=== PATIENT | male | born 1945 | race Caucasian/White ===

== ENCOUNTER 2017-07-22 16:25 | Outpatient (CLI) | payer MEDICARE, BC | END 2017-07-22 16:26 | disposition home or self-care (01) | LOC: BICRAD 16:25 | PROVIDERS: ATTEND Internal Medicine | DX: R05 Cough (principal); M48.54XS Collapsed vertebra, not elsewhere classified, thoracic region, sequela of fracture; J44.9 Chronic obstructive pulmonary disease, unspecified | CPT/HCPCS: 71020; 72070 ==

== ENCOUNTER 2018-01-09 07:49 | Emergency (ER) | payer MEDICARE, BC ==
[2018-01-09] MEDS ORDERED: HYDROcodone/Acetaminophen 5/325 mg Tablet ONE (08:30)
== END 2018-01-09 08:31 | disposition home or self-care (01) ==
LOC: ERS 07:49
DX: B02.9 Zoster without complications (principal); F43.10 Post-traumatic stress disorder, unspecified; F17.210 Nicotine dependence, cigarettes, uncomplicated; Z79.899 Other long term (current) drug therapy
CPT/HCPCS: 93005

== ENCOUNTER 2018-01-21 15:15 | Outpatient (CLI) | payer MEDICARE, BC | END 2018-01-21 15:16 | disposition home or self-care (01) | LOC: BICRAD 15:15 | PROVIDERS: ATTEND Internal Medicine | DX: M54.2 Cervicalgia (principal) | CPT/HCPCS: 71046; 72040 ==

== ENCOUNTER 2018-01-22 15:35 | Outpatient (CLI) | payer MEDICARE, BC ==
[2018-01-22] MEDS ORDERED: Gadobenate Dimeglumine 529 MG/1 ML (20ML VIAL) ONE (16:37)
--- NOTE | 2018-01-22 17:19 | MRI ---
MRI CERVICAL SPINE WITH AND WITHOUT GADOLINIUM CONTRAST 01/22/18 HISTORY: Neck pain. Osteoporosis. Compression fracture. FINDINGS: There is desiccation of all the intervertebral discs. Abnormal signal within the C5 vertebral body in cludes loss of T1 signal and increased T2 signal with enhancement. The abnormality extends into the r ight pedicle and lamina. No significant loss of height. Signal abnormality of the inferior aspect of the T3 vertebrae includes predominantly decreased T1 and T2 signal inferiorly with rim of increased T2 signal and enhancement. Minimal loss of height. C2-3: Central canal and neural foramina are patent. C3-4: Disc space narrowing. Central canal is patent. Severe right and mild left foraminal stenoses. C4-5: Disc space narrowing. Posterior osteophyte/disc complex with circumferential degenerative braswell es and mild central canal stenosis. Severe bilateral foraminal stenoses. C5-6: There is some expansion of the abdomen signal involving the vertebral body and right posterior elements at C5, compromising the right neural foramen and right side of the central canal. Circumfere ntial degenerative changes are also present with severe stenosis of the central canal and left neural foramen. C6-7: Posterior osteophyte/disc complex. Circumferential degenerative changes with mild to moderate c entral canal stenosis. There is moderate right and severe left foraminal stenoses. C7-T1: Mild osteophytosis. Central canal and neural foramina are patent. IMPRESSION: 1. Osseous metastatic disease is of primary concern given the abnormality of the C5 vertebra and to a lesser extent the T3 vertebra. This results in some compromise of the central canal and right n eural foramen. For further evaluation, please consider radionuclide bone scan to evaluate for extent of suspected metastatic disease. CT of the torso could also be used to evaluate for a potential prima ry neoplasm. 2. Degenerative changes of the cervical spine are also present, with central canal and foraminal stenoses as detailed above. Code T POS: [facility]
== END 2018-01-22 15:36 | disposition home or self-care (01) ==
LOC: MRI 15:35
PROVIDERS: ATTEND Internal Medicine
DX: C79.51 Secondary malignant neoplasm of bone (principal); M47.896 Other spondylosis, lumbar region; M48.02 Spinal stenosis, cervical region; M99.81 Other biomechanical lesions of cervical region
CPT/HCPCS: 72156; A9579

== ENCOUNTER 2018-01-28 07:43 | Outpatient (CLI) | payer MEDICARE, BC ==
--- NOTE | 2018-01-28 10:29 | CT ---
CT CHEST WITH IV CONTRAST: HISTORY: Bone metastases. FINDINGS: Lungs are severely hyperinflated with scattered interstitial thickening and scarring and mild bibasil ar atelectasis. Prominent bullae are present peripherally. At the medial aspect of the left upper l obe abutting the anterior mediastinal fat, a wedge-shaped parenchymal opacity is 2.3 x 1.7 cm diamete rs on the axial images. No pleural fluid or mediastinal adenopathy. Calcifications within the arter ial structures including the coronary arteries. At the posterior aspect of the left 10th rib, a slightly expansile mixed-density lesion is 1.6 cm gre atest diameter. Pathologic fracture is suspected along the lateral margin of the lesion. There are degenerative changes of the thoracic spine with vertebroplasty seen at the T8 level. No ve rtebral body lytic lesions are apparent, with particular attenuation paid to the T3 level where there was abnormality on recent MRI. Within the partially visualized upper abdomen, the low-density lesio n within the spleen is nonspecific, most commonly representing a hemangioma. IMPRESSION: 1. Left posterior 10th rib lesion is somewhat expansile and favored to represent metastatic disease. Pathologic fracture is suspected along the lateral margin of the mass. 2. The parenchymal lung lesion at the medial aspect of the left upper lobe could represent a metasta tic focus or nonaggressive process such as atelectasis or resolving infract. If neoplasm is not foun d elsewhere, radionuclide PET scan could be used to evaluate for hypermetabolic activity. 3. Chronic obstructive pulmonary disease. 4. Atherosclerosis. For further diagnosis, radionuclide bone scan is pending to evaluate for widespread osseous metastase s. Hopefully, a lesion below the level of the chest will be found for safe percutaneous biopsy. Of the abnormalities currently visible, the left rib mass would possibly be accessible by CT guidance fo r tissue sampling. POS: [facility]
[2018-01-28] MEDS ORDERED: Iopamidol 370 76% 100 ML VIAL ONE (11:21)
--- NOTE | 2018-01-28 14:26 | NM ---
WHOLE BODY BONE SCAN: DATE: 01/28/18. HISTORY: Hypercalcemia, malignant neoplasm. TECHNIQUE: Following the intravenous administration of 30 mCi Technetium 99m labeled MDP, anterior and posterior whole body imaging is obtained. In addition, lateral imaging of the cervical spine is obtained. FINDINGS: There is an abnormal focus of radiotracer activity within the mid/lower cervical spine concerning for a metastatic lesion. There is also a focus of abnormal activity in the upper thoracic spine, either T2 or T3, which is suspicious for metastatic disease as well. In the T9 region, there is an additio nal lesion noted. There appear to be 2 lesions within the spin at the lumbosacral junction, suspicious for lesions with in the L5 vertebral body. Thee is a lesion within the posterior aspect of the left 11th rib medially , and there is a lesion within the anterior aspect of the right 4th rib anteriorly. There is radiotr acer activity in the region of the temporomandibular joint on the left. This could represent an osse ous metastatic lesion as well. There is physiologic activity within the kidneys and urinary bladder. IMPRESSION: Multiple foci of increased activity identified within the osseous structures suspicious for extensive osseous metastatic disease. Cross-sectional imaging of the spine would best assess findings concern ing for multiple spinal lesions. POS: [facility]
== END 2018-01-28 07:44 | disposition home or self-care (01) ==
LOC: NM 07:43
PROVIDERS: ATTEND Internal Medicine
DX: C34.90 Malignant neoplasm of unspecified part of unspecified bronchus or lung (principal); F17.200 Nicotine dependence, unspecified, uncomplicated; E83.52 Hypercalcemia; M89.9 Disorder of bone, unspecified; J44.9 Chronic obstructive pulmonary disease, unspecified; I70.8 Atherosclerosis of other arteries
CPT/HCPCS: 71260; 78306; 82565; A9503

== ENCOUNTER → 2018-02-04 | Day surgery (SDC) | payer MEDICARE, BC ==
[~2018-02-04] MED LIST: Prevnar 13-Val Conj/PF 0.5 ML SYRINGE IM ONE; Sodium Bicarbonate 2.5 MEQ/5 ML VIAL ONE
[2018-02-04 08:24] LABS: PTT 32.2 SEC (22.9-36.1)
[2018-02-04 08:28] LABS: Prothrombin Time 12.9 SEC (12.0-14.7)
[2018-02-04 09:30] VITALS: BP 154/92; TEMP 97.6; BMI 26.6
--- NOTE | 2018-02-04 11:20 | CT ---
CT ABDOMEN AND PELVIS WITH IV CONTRAST: Date: 02-04-18 History: Patient with a left posterior 10th rib lesion and multiple foci of increased activity seen i n the osseous structures on bone scan suggesting metastatic disease. CT abdomen and pelvis was reques elaine. FINDINGS: There is volume loss present at each lung base. There is an approximately 2.1 cm hypodense lesion seen in the superior pole of the spleen also seen o n the CT thorax of 01-28-18, which is again nonspecific. This could represent a small hemangioma or sp lenic cyst. However, a solitary metastatic lesion in the spleen is thought less likely. There are subcentimeter too small to characterize hypodense lesions within the left kidney with a lar emeli 3.1 cm hypodense lesion at the junction of the midportion and superior pole left kidney demonstra ting fluid attenuation compatible with a cyst. A single small subcentimeter too small to characterize hypodense lesion is seen in the right kidney. The liver has somewhat lobulated margins which can be seen with cirrhosis, although this is probably normal for the patient. The pancreas, bilateral adrenal glands, opacified small bowel, and urinary bladder demonstrate a norm al CT appearance. There is colonic diverticulosis. There is no evidence of lymphadenopathy, free fluid, or fluid collection in the abdomen or pelvis. Vascular calcifications are seen in the abdominal and iliac arteries. The previously described expansile lesion involving the medial left 10th rib is again seen. There is a lucency seen within the inferior endplate of the L5 vertebral body which demonstrates andrea acteristics which are most suggestive of a prominent Schmorl's node. There are prominent facet degene rative changes seen bilaterally at the L5-S1 level, likely corresponding to areas of uptake seen on r ecent bone scan on 01-28-18. No additional lytic or sclerotic osseous lesions are appreciated. IMPRESSION: 1. Expansile lytic lesion involving the posterior medial left 10th rib. This rib also demonstrates in creased uptake on recent bone scan and is likely related to a metastatic lesion. 2. Activity within the lower lumbar spine on bone scan is likely attributable to degenerative changes at the lumbosacral junction. 3. Nonspecific hypodense lesion again seen in the spleen. 4. Left renal cyst with subcentimeter too small to characterize hypodense lesions in each kidney. 5. Small duodenal diverticulum. 6. No evidence of lymphadenopathy within the abdomen. 7. Colonic diverticulosis. 8. Prominent vascular calcifications. 9. Lobulated contour of the liver. While this can be seen with cirrhosis, the appearance on this exam ination is likely developmental in origin but correlation with liver function tests is suggested. POS: [facility]
--- NOTE | 2018-02-04 12:52 | CT ---
CT GUIDED PERCUTANEOUS BIOPSY OF A LEFT 10TH RIB LESION: DATE: 02/04/18. HISTORY: Lytic lesion within the medial aspect posterior left 10th rib with abnormal uptake on recent bone sca n. The patient also has a left upper lobe parenchymal lung lesion. Biopsy was requested. TECHNIQUE: The procedure including the risks and complications were explained to the patient and informed consen t was obtained. The patient was placed in the prone position on the CT scan table. Axial noncontras elaine CT images were obtained through the level of the 10th rib lesion with grid localizer in place. A n area was marked and then meticulously prepped and draped in the usual sterile fashion. The skin and subcutaneous tissues were infiltrated with buffered 1% Lidocaine for local anesthesia. A small skin incision was made. A 17-gauge guide needle was advanced followed by axial noncontrasted CT images. This was repeated until the needle was placed just within the peripheral aspect of the l ytic expansile lesion in the left 10th rib. A total of two 18-gauge core needle biopsy specimens wer e obtained utilizing coaxial technique. Pathology was available for the evaluation of the specimen a nd no additional specimens were requested as adequate sampling was performed with two 18-gauge core n eedle biopsies. The inner stylette was replaced, and the needle was removed. Hemostasis was achieved with direct pre ssure. A dry sterile dressing was placed. The patient tolerated the procedure well and without immediate complication. The patient was transpo rted to the radiology nurse's holding area for further monitoring prior to discharge. IMPRESSION: Technically successful CT-guided percutaneous biopsy of the expansile lesion left 10th rib. Patholog y is currently pending. POS: [facility]
== END ==
LOC: CT 07:51
PROVIDERS: ATTEND Internal Medicine
PROC: 0PB13ZX Excision of 1 to 2 Ribs, Percutaneous Approach, Diagnostic (ICD-10-PCS; principal; 2018-02-04)
DX: C79.51 Secondary malignant neoplasm of bone (principal); C80.1 Malignant (primary) neoplasm, unspecified; J44.9 Chronic obstructive pulmonary disease, unspecified; M81.0 Age-related osteoporosis without current pathological fracture; E83.52 Hypercalcemia; F17.200 Nicotine dependence, unspecified, uncomplicated
CPT/HCPCS: 20225; 74177; 77002; 85610; 85730; 88305; 88329; 88341; 88342

== ENCOUNTER 2018-03-03 12:55 | Outpatient (CLI) | payer MEDICARE, BC ==
[~2018-03-03 12:55] MED LIST changes: +Iopamidol 370 76% 100 ML VIAL ONE; -Prevnar 13-Val Conj/PF 0.5 ML SYRINGE IM ONE; -Sodium Bicarbonate 2.5 MEQ/5 ML VIAL ONE
== END 2018-03-03 12:56 | disposition home or self-care (01) ==
LOC: BICCT 12:55
PROVIDERS: ATTEND Radiology Radiation Oncology
DX: C34.90 Malignant neoplasm of unspecified part of unspecified bronchus or lung (principal); C79.51 Secondary malignant neoplasm of bone; R91.8 Other nonspecific abnormal finding of lung field; M85.89 Other specified disorders of bone density and structure, multiple sites; I65.23 Occlusion and stenosis of bilateral carotid arteries
CPT/HCPCS: 70491; 82565

== ENCOUNTER 2018-03-09 14:05 | Outpatient (CLI) | payer MEDICARE, BC ==
[2018-03-09 15:39] LABS: #Basophils 0.1 thou/uL (0.0-0.2); #Eosinphils 0.2 thou/uL (0.0-0.7); #Lymphocytes 1.3 thou/uL (1.20-3.40); #Monocytes 0.9 thou/uL (0.11-0.59); #Neutrophils 7.8 thou/uL (1.40-6.50); %Basophils 0.6 % (0.0-1.0); %Eosinophils 2.4 % (0.0-10.0); %Lymphocytes 12.3 % (21.0-51.0); %Monocytes 8.9 % (0.0-10.0); %Neutrophils 75.8 % (42.0-75.0); Hemoglobin 16.2 g/dL (14.0-18.0); Mean Corpuscular Hemoglobin 34.8 pg (27.0-31.0); Mean Platelet Volume 8.5 fL (7.4-10.4); Platelet Count 144 thou/uL (130-400); RBC Distribution Width 13.7 % (11.5-14.5); Red Blood Cell (RBC) Count 4.65 mill/uL (4.70-6.10); White Blood Cell (WBC) Count 10.3 thou/uL (4.8-10.8)
[2018-03-09 16:01] LABS: Anion Gap 13 mmol/L (10-20); BUN (Urea Nitrogen) 17 mg/dL (8.4-25.7); Calc. Creatinine Clearance 0 mL/min (70-130); Calcium 9.5 mg/dL (7.8-10.44); Carbon Dioxide 25 mmol/L (23-31); Chloride 104 mmol/L (98-107); Estimated GFR-MDRD 71; Glucose 93 mg/dL (83-110); Potassium 5.6 mmol/L (3.5-5.1); Sodium 136 mmol/L (136-145)
== END 2018-03-09 14:06 | disposition home or self-care (01) ==
LOC: LABBT 14:05
PROVIDERS: ATTEND Surgery
DX: Z01.812 Encounter for preprocedural laboratory examination (principal); C34.90 Malignant neoplasm of unspecified part of unspecified bronchus or lung
CPT/HCPCS: 80048; 85025

== ENCOUNTER 2018-03-23 08:23 | Day surgery (SDC) | payer MEDICARE, BC ==
[2018-03-23] MEDS ORDERED: PROPOFOL 200 MG/20 ML VIAL ONE (10:11)
--- NOTE | 2018-03-23 13:20 | RAD ---
CHEST ONE VIEW: History: Mediport placement. FINDINGS: Cardiac silhouette magnified by projection. Pulmonary vasculature upper limits of normal. Mild reticu lar nodular interstitial prominence is present throughout each lung. Mediastinum is midline with aort ic calcification. Tip of a right internal jugular Mediport projects over the superior vena cava. No e vidence of pneumothorax. Oval lucency at the lateral margin of the inferior portion of the right scap ular body may be related to patient's known osseous metastatic disease. IMPRESSION: Right internal jugular Mediport is in good radiographic position. POS: [facility]
--- NOTE | 2018-03-24 08:26 | OP ---
DATE OF PROCEDURE: 03/23/2018 PREOPERATIVE DIAGNOSIS: Lung cancer. POSTOPERATIVE DIAGNOSIS: Lung cancer. PROCEDURE: Tunneled central line with subcutaneous port (MediPort, CT injectable). SURGEON: Dr. Aashish Amato ANESTHESIA: TIVA, local. ESTIMATED BLOOD LOSS: Minimal. COMPLICATIONS: None. SPECIMEN: None. FINDINGS: Tip of the catheter is at the atriocaval junction. TECHNIQUE: The patient was taken to the operating room and placed supine on the table. After genera l anesthetic was obtained, the bilateral neck and chest were shaved, prepped, and draped in a sterile fashion. Local anesthetic infiltrated over the right internal jugular vein. Intrajugular vein gayathri ulated using a 22-gauge finder needle followed by a Seldinger needle. Wire was passed into the super ior vena cava under fluoroscopic guidance. A small camilo was made at the wire entrance site. A separ ate 3-cm incision made in the right upper chest. Subcutaneous pocket made below the lower incision. Tubing for the MediPort tunneled from the inferior to superior incision. Introducer sheath was plac ed over the wire into the superior vena cava under fluoroscopic guidance. The dilator and wire remov ed as the end of the catheter slid into the sheath. The tip of the catheter is at the atriocaval angelique ction. MediPort tubing cut to fit the MediPort at the lower incision, connected to the MediPort whic h is sewn to the chest wall and the subcutaneous pocket using Prolene suture. The wound was irrigate d. Local anesthetic was applied. The port is cannulated, draws blood and flushes without difficulty . It is flushed with a heparin flush. The wounds are irrigated and closed using 3-0 Vicryl, 4-0 Mon ocryl, and Dermabond. The patient went to recovery in stable condition. All instrument counts, need le counts, lap counts are correct.
== END 2018-03-23 12:20 | disposition home or self-care (01) ==
LOC: SDC 08:23
PROVIDERS: ATTEND Surgery
PROC: 0JH63WZ Insertion of Totally Implantable Vascular Access Device into Chest Subcutaneous Tissue and Fascia, Percutaneous Approach (ICD-10-PCS; principal; 2018-03-23)
DX: C34.90 Malignant neoplasm of unspecified part of unspecified bronchus or lung (principal); J43.9 Emphysema, unspecified; F17.210 Nicotine dependence, cigarettes, uncomplicated; Z79.52 Long term (current) use of systemic steroids; Z79.51 Long term (current) use of inhaled steroids; Z79.899 Other long term (current) drug therapy
CPT/HCPCS: 36561; 71045; C1788; J2704

== ENCOUNTER 2018-06-11 13:39 | Outpatient (CLI) | payer MEDICARE, BC ==
--- NOTE | 2018-06-11 18:38 | CT ---
CT OF THE CHEST WITH CONTRAST: Comparison: 01-28-18 History: Lung cancer with bone metastases. Re-staging examination. Technique: Multiple contiguous axial images were obtained in a CT of the chest with contrast. Coronal reformats were performed. FINDINGS: The heart is upper limits of normal in size. Calcifications are seen in the coronary arteries and aor ta. No hilar or mediastinal lymphadenopathy are seen. Severe emphysematous changes are seen in the lungs. There is a mass in the left upper lobe abutting t he mediastinum. This mass is decreased in size and now measures 1.9 x 1.2 cm in size. No other pulmon ksenia masses are identified. No pleural effusion or pneumothorax are seen. There is an expansile mass involving the left posterior 10th rib. No other suspicious osseous lesions are identified. The patient has a Mediport with its tip in the superior vena cava. There are hypoden sities in the kidneys which likely represent cysts. The other visualized subdiaphragmatic structures are unremarkable. Vertebroplasty cement is seen in the mid thoracic vertebral body. IMPRESSION: 1. Small left upper lobe lung mass. 2. Expansile lesion in the left T10 rib, likely represents an osseous metastasis. POS: [facility]
== END 2018-06-11 13:40 | disposition home or self-care (01) ==
LOC: BICCT 13:39
PROVIDERS: ATTEND Internal Medicine Hematology & Oncology
DX: C79.51 Secondary malignant neoplasm of bone (principal); C34.12 Malignant neoplasm of upper lobe, left bronchus or lung; M89.9 Disorder of bone, unspecified
CPT/HCPCS: 71260; 82565

== ENCOUNTER 2018-09-20 21:22 | Observation (INO) | payer MEDICARE, BC ==
[~2018-09-20 21:22] MED LIST changes: +ISOVUE-370 76%-LOCM 1 ML ONE; -Iopamidol 370 76% 100 ML VIAL ONE
[2018-09-20 22:02] LABS: #Lymphocytes 0.7 thou/uL (1.20-3.40); #Monocytes 1.3 thou/uL (0.11-0.59); #Neutrophils 14.5 thou/uL (1.40-6.50); %Basophils 0.2 % (0.0-1.0); %Lymphocytes 4.3 % (21.0-51.0); %Monocytes 7.7 % (0.0-10.0); %Neutrophils 87.8 % (42.0-75.0); Hemoglobin 15.5 g/dL (14.0-18.0); Mean Corpuscular HGB CONC 33.3 g/dL (32.0-36.0); Mean Corpuscular Hemoglobin 34.3 pg (27.0-31.0); Mean Platelet Volume 8.7 fL (7.4-10.4); Platelet Count 135 thou/uL (130-400); RBC Distribution Width 14.3 % (11.5-14.5); Red Blood Cell (RBC) Count 4.52 mill/uL (4.70-6.10); White Blood Cell (WBC) Count 16.5 thou/uL (4.8-10.8)
--- NOTE | 2018-09-20 22:19 | RAD ---
CHEST TWO VIEWS: HISTORY: Chest pain. History of lung cancer with bony metastases. COMPARISON: 03/23/2018 TECHNIQUE: PA and lateral views of the chest are obtained. FINDINGS: Two views of the chest demonstrate a right jugular Mediport catheter in place. Mid thoracic vertebro plasty change is seen. There are diffuse interstitial markings throughout the lung parenchyma, concerning for possible inter stitial fibrosis. Other possibility could include interstitial edema or lymphangitic spread of neopl asm. Bilateral areas of apical lung emphysematous change is seen. No evidence of pleural effusion is seen. IMPRESSION: Lung interstitial fibrotic changes with areas of bilateral apical emphysematous changes and bullae. POS: [facility]
[2018-09-20 22:23] LABS: ALT (SGPT) 14 U/L (8-55); AST (SGOT) 14 U/L (5-34); Albumin 3.9 g/dL (3.4-4.8); Alkaline Phosphatase 78 U/L (40-150); Anion Gap 15 mmol/L (10-20); BUN (Urea Nitrogen) 11 mg/dL (8.4-25.7); Bilirubin, Total 1.4 mg/dL (0.2-1.2); CK (CPK) 26 U/L (30-200); Calc. Creatinine Clearance 0 mL/min (70-130); Calcium 10.2 mg/dL (7.8-10.44); Carbon Dioxide 24 mmol/L (23-31); Chloride 101 mmol/L (98-107); Estimated GFR-MDRD 60; Globulin 3.5 g/dL (2.4-3.5); Glucose 126 mg/dL (83-110); Potassium 4.2 mmol/L (3.5-5.1); Protein, Total 7.4 g/dL (5.8-8.1); Sodium 136 mmol/L (136-145)
--- NOTE | 2018-09-20 23:14 | CT ---
CTA CHEST WITH CONTRAST: HISTORY: Chest pain and dyspnea. TECHNIQUE: A contrast enhanced CTA chest is performed, and 2D and 3D reconstructed images are performed on an in dependent 3D work station. FINDINGS: There are extensive coronary artery calcifications seen. No evidence of pleural or pericardial effusion seen. Extensive lung interstitial fibrotic changes and extensive bilateral upper lobe emphysematous changes also seen. No evidence of mediastinal or axillary lymphadenopathy seen. A right jugular Mediport catheter is in place. Areas of hypodensity seen in the upper pole of the left kidney, possibly representing left renal riley ical cyst. Confirmation with elective sonography may be of use to rule out a possible solid lesion i n the upper pole of the left kidney. A small hiatal hernia is also present. T9 vertebroplasty change is present. Also noted is an area of focal sclerotic change involving the inferior aspect of the left T2 vertebra l body. There is also an area of sclerotic change in the mid lateral right scapula. Posterior to the left T11 rib, there is an area of sclerotic density, possibly representing metastati c disease versus healing or healed posterior T11 rib fracture. IMPRESSION: 1. Extensive coronary artery calcifications. 2. No evidence of pulmonary emboli or significant evidence of pleural or pericardial effusion. 3. There is some minimal pleural thickening in the left lung base. POS: [facility]
[2018-09-20] MEDS ORDERED: Aspirin Chewable 81 MG TAB ONE (23:41)
[2018-09-21 01:13] LABS: Troponin I 0.044 ng/mL (< 0.028)
[2018-09-21 04:19] LABS: Troponin I 0.062 ng/mL (< 0.028)
[2018-09-21] MEDS ORDERED: Zolpidem Tartrate 5 MG TAB PO PRN (09:16)
[2018-09-21] MEDS ORDERED: Acetaminophen 325 MG TAB PO PRN (09:18)
[2018-09-21] MEDS ORDERED: Ondansetron PF 4 MG/2 ML Vial IVP PRN (09:18)
[2018-09-21] MEDS ORDERED: Ondansetron ODT 4 MG TAB PO PRN (09:18)
[2018-09-21] MEDS ORDERED: Guaifenesin DM 100-10/5 ML UDCUP PO PRN (09:18)
[2018-09-21 09:33] LABS: #Basophils 0.1 thou/uL (0.0-0.2); #Eosinphils 0.1 thou/uL (0.0-0.7); #Monocytes 1.3 thou/uL (0.11-0.59); #Neutrophils 8.1 thou/uL (1.40-6.50); %Basophils 0.7 % (0.0-1.0); %Eosinophils 1.4 % (0.0-10.0); %Monocytes 12.1 % (0.0-10.0); %Neutrophils 76.8 % (42.0-75.0); Hemoglobin 14.6 g/dL (14.0-18.0); Mean Corpuscular HGB CONC 31.7 g/dL (32.0-36.0); Mean Corpuscular Hemoglobin 33.3 pg (27.0-31.0); Mean Platelet Volume 8.7 fL (7.4-10.4); Platelet Count 129 thou/uL (130-400); RBC Distribution Width 14.3 % (11.5-14.5); Red Blood Cell (RBC) Count 4.39 mill/uL (4.70-6.10); White Blood Cell (WBC) Count 10.6 thou/uL (4.8-10.8)
[2018-09-21 09:52] LABS: Anion Gap 13 mmol/L (10-20); BUN (Urea Nitrogen) 17 mg/dL (8.4-25.7); Calc. Creatinine Clearance 0 mL/min (70-130); Calcium 10.2 mg/dL (7.8-10.44); Carbon Dioxide 27 mmol/L (23-31); Chloride 103 mmol/L (98-107); Estimated GFR-MDRD 61; Glucose 96 mg/dL (83-110); Potassium 4.1 mmol/L (3.5-5.1); Sodium 139 mmol/L (136-145)
[2018-09-21 12:04] VITALS: BMI 26.9
[2018-09-21] MEDS: Nicotine 14 MG PATCH TD SCH (12:29)
--- NOTE | 2018-09-21 14:03 | CON ---
DATE OF CONSULTATION: 09/21/2018 REASON FOR CONSULTATION: Chest pain. HISTORY OF PRESENT ILLNESS: Mr. Parker is a pleasant 73-year-old white gentleman, who comes to the hospital for chest pain. He has a history of stage IV lung cancer. He has a small tumor on his left upper lobe. He has had radiation and last time he saw the oncologist, he was told that the tumor had actually shrunk. He has mets to his bones, mostly to the left rib cage, T10 area, where he had this biopsy originally. This is now where he is starting today. He also had mets to the cervical spine. He had noted chest pain in last 2 days when he took a deep breath in the midsternal area, so he decided to come in for further evaluation. In the ER, he had a CT of the chest that showed no evidence of pulmonary embolus, no major bony abnormality or major masses that would cause him to have physical chest pain. He does have a thickened pleura on the left base, which could be the source of his pleuritic-type chest pains. PAST MEDICAL HISTORY: 1. Stage IV lung cancer. 2. COPD. 3. Ongoing tobacco abuse. 4. Osteoporosis. 5. Hyperlipidemia. 6. PTSD. SOCIAL HISTORY: Social alcohol use. No drug use. Continues to smoke a pack a day. He states he is not going to smoke anymore after this admission. FAMILY HISTORY: Noncontributory. REVIEW OF SYSTEMS: A 12-point review of systems was done and was found to be negative unless stated in the history of present illness or below. He has been having a cough recently, hurts when he coughs as well. OUTPATIENT MEDICATIONS: Include, 1. Combivent. 2. Symbicort. 3. Caltrate D. 4. Vitamin D. 5. Gabapentin. 6. Pantoprazole. 7. Keytruda. 8. Simvastatin 40 mg nightly. 9. Zolpidem p.r.n. ALLERGIES: NO KNOWN DRUG ALLERGIES. PHYSICAL EXAMINATION: VITAL SIGNS: Blood pressure 97/70, pulse 109, respiratory rate 27, saturating 99% on room air, and temperature 98.8. GENERAL: Awake, alert, and oriented x3. No distress. HEENT: Normocephalic and atraumatic. NECK: Supple. LUNGS: Reduced breath sounds bilaterally. CARDIOVASCULAR: S1 and S2. No S3 or S4. There is a grade 2/6 systolic murmur at the right upper sternal border. ABDOMEN: Soft. Positive bowel sounds. EXTREMITIES: No edema. SKIN: Warm and dry. LABORATORY DATA: Laboratory work was reviewed. CBC with a white count of 16 on admission, down to 10; hemoglobin of 14, hematocrit of 46, and platelet count of 129. Chemistries are unremarkable except for glucose of 126 on admission. Total bilirubin was 1.4, but normal AST, ALT, and alkaline phosphatase. CK was 26, CK-MB was 1, normal. Troponin was 0.03, 0.04, 0.06. BNP of 88. Albumin of 3.9. EKG was reviewed. CT of the chest was reviewed. ASSESSMENT AND PLAN: 1. Chest pain: Pleuritic in nature. 2. Stage IV lung cancer. 3. Chronic obstructive pulmonary disease. 4. Ongoing tobacco abuse. 5. Coronary artery disease as evidenced by CT of the chest that showed coronary calcifications and aortic calcifications. PLAN: 1. Given his mildly elevated troponin, we will need to rule out any cardiac issues. He does have coronary artery disease. The question is how bad is it. We will do a nuclear stress in the morning as he has had fluid today. We will get an echocardiogram to assess valvular structures and LV function. 2. Further recommendations per results of further testing. Job ID: [id number]
[2018-09-21] MEDS: Gabapentin 300 MG CAP PO SCH ×2 (15:11→20:57)
--- NOTE | 2018-09-21 16:21 | HP ---
PRIMARY CARE PHYSICIAN: Disha Salinas MD. PRIMARY ONCOLOGIST: Dr. Mendiola. CHIEF COMPLAINT: Chest pain and worsening dyspnea. HISTORY OF PRESENT ILLNESS: Mr. Parker is a pleasant 73-year-old male with past medical history of stage IV lung cancer with metastatic disease to bone, currently undergoing chemotherapy, hyperlipidemia, osteoporosis, and emphysema, who had presented to [facility] due to substernal chest pain and worsening dyspnea that started yesterday morning, he states symptoms come on suddenly, however worse with coughing and deep breathing. He states that he has been coughing for quite some time now and is short of breath at baseline due to his underlying lung cancer and emphysema. He states that he has also noticed some cough, some phlegm production, which is also his baseline. He also admits to smoking a pack of cigarettes daily, he had denied any fever or chills. He had denied any radiation of pain. He reports seeing Dr. Mendiola for his chemotherapy, he states his last round of chemo was last week. He had denied any headache, dizziness, blurred vision, palpitations, numbness, or tingling. During his time in the emergency department, he had received a dose of aspirin along with a DuoNeb treatment. He states that his substernal chest pain did in fact improve even though, this is still present and has improved since arriving in the emergency department. His EKG in the emergency department showed sinus tachycardia with a rate of 116 along with findings suggesting of left atrial enlargement. Otherwise, unremarkable. Chest x-ray revealed long interstitial fibrotic changes with areas of bilateral apical emphysematous changes in bullous. CTA of chest showed extensive coronary artery calcifications, however, no evidence of pulmonary emboli or significant evidence of pleural or pericardial effusion noted. There is some minimal pleural thickening in the left lung base. His serial troponins were found to be slightly elevated at 0.038 and turned up to 0.062. His white count was also elevated at 16.5. It was determined that he would be admitted under observation for further cardiac workup of his symptoms. REVIEW OF SYSTEMS: All other systems reviewed and found to be negative unless mentioned in the HPI. PAST MEDICAL HISTORY: Stage IV lung cancer with metastatic disease to the bone, currently undergoing chemotherapy, hyperlipidemia, emphysema, osteoporosis. PAST SURGICAL HISTORY: Back surgery and T7 for osteoporosis in the past. PSYCHIATRIC HISTORY: Does admit to PTSD. SOCIAL HISTORY: Drinks socially, which is very rarely. Does also admit to tobacco use, smokes one pack per day. Denies any illicit drug use. KNOWN ALLERGIES: No known drug allergies. CURRENT HOME MEDICATIONS: 1. Gabapentin 300 mg oral t.i.d. 2. Budesonide/formoterol 80 mcg/4.5 mcg two puff inhalation b.i.d. 3. Vitamin D3 4000 units daily. 4. Hydrocodone/acetaminophen 10/325 mg p.o. every 6 hours p.r.n. for pain. 5. multivitamin one p.o. daily. 6. Simvastatin 40 mg p.o. q.p.m. 7. Zolpidem 10 mg p.o. at bedtime. 8. Combivent Respimat 20 mcg/100 mcg per actuation 2 to 4 puff four times a day. 9. Protonix 40 mg oral once daily. 10. Keytruda 200 mg IV every three weeks. PHYSICAL EXAMINATION: VITAL SIGNS: Blood pressure 124/93, pulse 94, respirations 18, temperature 98.0 degrees Fahrenheit, and O2 saturation is 98% on room air. GENERAL: Awake, alert, and oriented x3. No acute distress noted. HEENT: Atraumatic and normocephalic. Pupils are round and reactive to light. Extraocular muscles intact. Moist mucous membranes noted. NECK: Soft and supple. No JVD. No bruit. Trachea midline. CARDIOVASCULAR: Positive S1 and S2. Regular rate and rhythm. No murmur auscultated. RESPIRATORY: Coarse breath sounds throughout lung lopez bilaterally, chest expansion equal. No accessory muscle use noted. ABDOMEN: Soft and nontender. Bowel sounds present. Nondistended. MUSCULOSKELETAL: Strength 5+ bilaterally in upper and lower extremities. Radial and pedal pulses palpable. Moves all extremities equal. No edema noted. NEUROLOGIC: Cranial nerves 2 through 12 intact. No focal deficits noted. Speech intact and normal. SKIN: Warm, dry, and intact. No ulcerations. No lesions. MediPort noted in right upper chest with no erythema or signs of infection. PSYCHIATRIC: Good mood and affect, and responding to questions well. LABORATORY DATA: WBC 16.5, RBC 4.52, hemoglobin 15.5, and platelet 135. Sodium 136, potassium 4.2, carbon dioxide 24, anion gap 15, BUN , creatinine 1.19, estimated GFR 60. Creatine kinase 26. CK-MB 1.0, troponin 0.038, trended up to 0.062. BNP 88.5. DIAGNOSTIC IMAGING: Chest x-ray showed lung interstitial fibrotic changes with no pleural effusion seen. CTA of chest showed no evidence of pulmonary emboli or significant evidence of pleural or pericardial effusion, there is some minimal pleural thickening in left lung base and extensive coronary artery re-calcifications. ASSESSMENT AND PLAN: 1. Chest pain, will rule out cardiac etiology. Serial troponins elevated, we will order cardiac stress test and will consider consultation to Cardiology Services. 2. History of lung cancer, currently undergoing chemotherapy. Continue on the patient's home regimen at this time, add p.r.n. DuoNeb treatments. 3. Hyperlipidemia, continue on the patient's home statin. 4. History of emphysema, as above. Continue on the patient's home regimen along with p.r.n. DuoNebs. Add guaifenesin DM for cough suppressant. 5. Nicotine dependence. Strongly encouraged smoking cessation. Add nicotine 10 mg transdermal patch. 6. GI and DVT prophylaxis. 7. Code status, full code. DISPOSITION: Pending further workup and clinical findings. Job ID: [id number]
[2018-09-21] MEDS: Mometasone/Formoterol 120 PUFF INHALER INH SCH (18:36)
[2018-09-21] MEDS: Famotidine 20 MG TAB PO SCH (20:58)
[2018-09-21] MEDS ORDERED: Prevnar 13-Val Conj/PF 0.5 ML SYRINGE IM ONE (21:00)
[2018-09-21] MEDS ORDERED: Atorvastatin Calcium 20 MG TAB PO SCH (21:00)
[2018-09-21] MEDS: HYDROcodone/Acetaminophen 10/325 mg Tablet PO PRN (21:03)
[2018-09-22 06:26] LABS: #Eosinphils 0.2 thou/uL (0.0-0.7); #Lymphocytes 0.9 thou/uL (1.20-3.40); #Monocytes 0.9 thou/uL (0.11-0.59); #Neutrophils 7.2 thou/uL (1.40-6.50); %Basophils 0.4 % (0.0-1.0); %Eosinophils 2.7 % (0.0-10.0); %Lymphocytes 9.8 % (21.0-51.0); %Monocytes 9.5 % (0.0-10.0); %Neutrophils 77.7 % (42.0-75.0); Hemoglobin 14.4 g/dL (14.0-18.0); Mean Corpuscular HGB CONC 32.9 g/dL (32.0-36.0); Mean Corpuscular Hemoglobin 34.5 pg (27.0-31.0); Mean Platelet Volume 8.9 fL (7.4-10.4); Platelet Count 121 thou/uL (130-400); RBC Distribution Width 14.4 % (11.5-14.5); Red Blood Cell (RBC) Count 4.18 mill/uL (4.70-6.10); White Blood Cell (WBC) Count 9.3 thou/uL (4.8-10.8)
[2018-09-22 06:42] LABS: Anion Gap 13 mmol/L (10-20); BUN (Urea Nitrogen) 16 mg/dL (8.4-25.7); Calc. Creatinine Clearance 72 mL/min (70-130); Calcium 9.7 mg/dL (7.8-10.44); Carbon Dioxide 24 mmol/L (23-31); Chloride 104 mmol/L (98-107); Estimated GFR-MDRD 75; Glucose 87 mg/dL (83-110); Potassium 3.8 mmol/L (3.5-5.1); Sodium 137 mmol/L (136-145)
[2018-09-22] MEDS: Mometasone/Formoterol 120 PUFF INHALER INH SCH (07:05)
[2018-09-22] MEDS ORDERED: Prenatal Vitamin 1 TAB PO SCH (09:00)
[2018-09-22] MEDS ORDERED: Regadenoson 0.4 MG/5 ML SYRINGE ONE (11:28)
[2018-09-22] MEDS: Famotidine 20 MG TAB PO SCH (12:16)
[2018-09-22] MEDS: Gabapentin 300 MG CAP PO SCH ×2 (12:16→16:44)
[2018-09-22] MEDS: HYDROcodone/Acetaminophen 10/325 mg Tablet PO PRN (12:17)
[2018-09-22] MEDS: Nicotine 14 MG PATCH TD SCH (12:17)
--- NOTE | 2018-09-22 13:08 | NM ---
CARDIAC SPECT: CLINICAL HISTORY: 73-year-old male with chest pain, COPD, dyslipidemia, and smoker. TECHNIQUE: A myocardial perfusion scan was performed using the single isotope one day protocol with technetium-9 9m sestamibi. 10 mCi were injected intravenously for the rest exam followed by 33 mCi for the stress exam. Pharmacologic stress with Lexiscan was monitored and interpreted by Leo Louise NP. FINDINGS: Homogeneous tracer distribution is seen in the myocardial segments on stress and rest images without fixed or reversible defects. GATED SPECT LVEF: 56%. WALL MOTION EXAM: Normal. IMPRESSION: Normal myocardial perfusion scan. POS: JENNY
[2018-09-22 16:00] VITALS: BP 93/60; TEMP 98.5
--- NOTE | 2018-09-22 17:09 | PDOC.CTH ---
Cardiology Progress Note - Subjective He is feeling better. No more chest pain. Breathing at baseline. - Objective Vital Signs Temp Pulse Resp BP Pulse Ox 09/22/18 15:48 98.5 F 88 16 93/60 93 L 09/22/18 12:15 98.1 F 96 16 133/87 95 09/22/18 07:38 98.3 F 96 18 103/76 94 L 09/22/18 07:08 90 L 09/22/18 07:05 110 H 16 90 L Weight 172 lb 4 oz 09/21/18 09/22/18 09/23/18 06:59 06:59 06:59 Intake Total 1040 Output Total 4 Balance 1036 - Physical Examination General/Neuro: alert & oriented x3, NAD Neck: no JVD present Lungs: unlabored respirations Heart: RRR Abdomen: NT/ND Extremities: other: (no edema) - Telemetry Telemetry Rhythm: NSR - Labs Result Diagrams: 09/22/18 05:47 09/22/18 05:47 Troponin/CKMB CK-MB (CK-2) 1.0 ng/mL (0-6.6) 09/20/18 21:48 Troponin I 0.062 ng/mL (< 0.028) H 09/21/18 03:42 - Assessment/Plan 1. Chest pian 2. Tobacco use 3. Pulmonary HTN, likely from undiagnosed COPD. PLAN: - Normal stress test - Unremarkable echo. - May discharge home. - Will follow up in clinic in 1-2 months.
--- NOTE | 2018-09-25 19:51 | EKG ---
Test Reason : Blood Pressure : / mmHG Vent. Rate : 116 BPM Atrial Rate : 116 BPM P-R Int : 142 ms QRS Dur : 082 ms QT Int : 322 ms P-R-T Axes : 057 004 039 degrees QTc Int : 447 ms Sinus tachycardia Possible Left atrial enlargement Borderline ECG Confirmed by ALEAH MONTANEZ DO ([id number]), script editor HEMALATHA LAST ([id number]) on 09/25/2018 7:50:49 PM Referred By: Confirmed By:ALEAH MONTANEZ DO
== END 2018-09-22 17:50 | disposition home or self-care (01) ==
LOC: ERS 21:22 → ERHOLD 23:34 → 2SW 09-21 11:06
PROVIDERS: ADMIT Hospitalist; ATTEND Hospitalist
DX: R07.1 Chest pain on breathing (principal); C34.12 Malignant neoplasm of upper lobe, left bronchus or lung; C79.51 Secondary malignant neoplasm of bone; E78.5 Hyperlipidemia, unspecified; F17.210 Nicotine dependence, cigarettes, uncomplicated; I25.10 Atherosclerotic heart disease of native coronary artery without angina pectoris; M81.0 Age-related osteoporosis without current pathological fracture; F43.10 Post-traumatic stress disorder, unspecified; J43.9 Emphysema, unspecified; Z92.21 Personal history of antineoplastic chemotherapy; Z79.82 Long term (current) use of aspirin; Z79.899 Other long term (current) drug therapy; Z98.890 Other specified postprocedural states
CPT/HCPCS: 71046; 71275; 78452; 80048 ×2; 80053; 82550; 82553; 83880; 84484 ×3; 85025 ×3; 90670; 93005; 93017; 93306; 94640 ×2; 94644; 94760; 97139 ×2; 99285; A9500; G0009; G0378 ×2; 36415; 90471; J2785; J7620; Q9966

== ENCOUNTER 2018-10-05 09:59 | Day surgery (SDC) | payer MEDICARE, BC ==
[2018-10-04 13:53] VITALS: BMI 26.7
--- NOTE | 2018-10-05 13:43 | OP ---
DATE OF PROCEDURE: 10/05/2018 PROCEDURES PERFORMED: Esophagogastroduodenoscopy, colonoscopy, and polypectomy. PREPROCEDURE DIAGNOSES: 1. Atypical epigastric and chest pain with recent negative cardiac stress test. 2. Metastatic lung cancer in maintenance therapy with Keytruda with no advanced disease. 3. Prior history of bone mets. 4. Recent CAT scan in the fall of 2017 showed no evidence of gallstones. 5. Small and nodular liver on that imaging study with high MCV and slight low platelet count concerning for portal hypertension. POSTPROCEDURE DIAGNOSES: 1. No evidence of esophageal varices, gastritis, or duodenal abnormalities. 2. There is a small hiatal hernia. Some of his symptoms may have been reflux related and he is improved with PPIs, but still has chest pain periodically. 3. Colonoscopy notable for 5 mm polyps in the ascending colon, one in the sigmoid, all removed by cold snare polypectomy and submitted to Pathology. 4. Diverticulosis coli. RECOMMENDATIONS: 1. High-fiber diet. Continue PPI. 2. Await histopathology. Further screening colonoscopies really be determined on how he is doing with his malignancy. DESCRIPTION OF PROCEDURE: After the patient was informed of the risks, benefits, possible complications of endoscopy including perforation, reaction to medication, and aspiration, informed consent was obtained. The patient was brought to the Endoscopy Suite, where he was sedated in a gradual fashion. Once he was comfortable, a bite block was placed inside his orifices. The endoscope was advanced through the esophagus, stomach, and second and third portion of the duodenum and slowly removed. There was good visualization of the mucosa. The esophagus was notable for a small hiatal hernia. There was no evidence of overt esophagitis, this is sliding-type. The stomach was entered and found to be normal in forward and retroflexed views. No evidence of ulcers, masses, or lesions. The pyloric channel was open. The duodenum was normal in the third portion. The scope was then removed. After retroflexed views again while performed in the stomach revealing no abnormalities. The patient was returned to the room, where rectal examination was performed, which was normal. The endoscope was advanced to the anal colon through the colon to the cecum, which was identified by the ileocecal valve and appendiceal orifice. There was diverticulosis coli present. There were few impacted diverticula and there were few mildly inflamed diverticula without any pain or fever, leukocytosis, so decision was made not to treat this. There were 3 to 5 mm polyps in the ascending colon, flat, sessile, removed by cold snare polypectomy with good hemostasis. There was one in the sigmoid colon, which was removed, but not retrieved. Retroflexed views in the rectum were normal. The scope was removed. The patient tolerated the procedure well with no complications. Job ID: [id number]
[2018-10-05] MEDS ORDERED: PHENYLEPHRINE-NS 100 MCG/ML 10 ML SYRINGE ONE (14:28)
[2018-10-05] MEDS ORDERED: PROPOFOL 200 MG/20 ML VIAL ONE (14:28)
[2018-10-05] MEDS ORDERED: Lidocaine 1% PF 5 ML VIAL ONE (14:28)
== END 2018-10-05 13:19 | disposition home or self-care (01) ==
LOC: SDC 09:59
PROVIDERS: ATTEND Internal Medicine Gastroenterology
PROC: 0DJ08ZZ Inspection of Upper Intestinal Tract, Via Natural or Artificial Opening Endoscopic (ICD-10-PCS; principal; 2018-10-05)
PROC: 0DBK8ZZ Excision of Ascending Colon, Via Natural or Artificial Opening Endoscopic (ICD-10-PCS; 2018-10-05)
PROC: 0DBN8ZZ Excision of Sigmoid Colon, Via Natural or Artificial Opening Endoscopic (ICD-10-PCS; 2018-10-05)
DX: D12.5 Benign neoplasm of sigmoid colon (principal); D12.2 Benign neoplasm of ascending colon; K44.9 Diaphragmatic hernia without obstruction or gangrene; K57.30 Diverticulosis of large intestine without perforation or abscess without bleeding; J43.9 Emphysema, unspecified; C34.90 Malignant neoplasm of unspecified part of unspecified bronchus or lung; K76.89 Other specified diseases of liver; F17.210 Nicotine dependence, cigarettes, uncomplicated; Z79.82 Long term (current) use of aspirin; Z79.899 Other long term (current) drug therapy
CPT/HCPCS: 88305; J2001; J2704

== ENCOUNTER 2018-12-21 14:17 | Outpatient (CLI) | payer MEDICARE, BC ==
--- NOTE | 2018-12-21 14:41 | RAD ---
XR Chest Pa Lat STANDARD HISTORY: Left chest wall pain status post fall. COMPARISON: 09/20/2018 study. FINDINGS: Heart size is borderline. Severe chronic lung changes are seen. No pneumothorax. A left ant erior ninth rib fractures seen. This appears acute. A right-sided Mediport catheter is in place. IMPRESSION: Acute nondisplaced left ninth rib fracture. Severe chronic lung change.
--- NOTE | 2018-12-21 14:41 | RAD ---
XR Ribs Lt>=2 View STANDARD HISTORY: Fall with left rib pain COMPARISON: None. FINDINGS: Chronic lung changes are seen. An acute nondisplaced left ninth rib fractures present. No p neumothorax. IMPRESSION: Left ninth rib fracture.
== END 2018-12-21 14:18 | disposition home or self-care (01) ==
LOC: BICRAD 14:17
PROVIDERS: ATTEND Internal Medicine
DX: R55 Syncope and collapse (principal); Z91.81 History of falling; S22.32XA Fracture of one rib, left side, initial encounter for closed fracture
CPT/HCPCS: 36415; 71046; 80053; 82248; 83615; 84100; 84443; 84550

== ENCOUNTER 2019-01-11 15:47 | Outpatient (CLI) | payer MEDICARE, BC ==
--- NOTE | 2019-01-11 16:18 | RAD ---
Exam: Chest 2 views HISTORY:COPD Comparison: 12/21/2018 FINDINGS: Right chest port remains. Lungs: Bilateral interstitial and alveolar opacities remain, predominantly perihilar in distribution. Biapical bulla indicate emphysema. Cardiac silhouette:Enlarged Pulmonary vessels: Engorged Pleural Spaces: Left pleural effusion is slightly increased in volume. Mild pleural thickening versus fluid of the inferior right hemithorax. Pneumothorax: None Osseous abnormalities: None of acuity. IMPRESSION: CHF and COPD. Superimposed left pleural effusion with adjacent basilar density present. R ecommend clinical correlation to exclude evidence of superimposed pneumonia. Jesus follow-up to resolution.
--- NOTE | 2019-01-11 17:15 | RAD ---
LEFT RIB SERIES: 01/11/19 HISTORY: Follow-up left rib fractures. FINDINGS: There are fractures involving the left eighth and ninth ribs. The eighth rib fracture was not definit edie seen on 12/21/18. No significant healing is identified. POS: JHONNY
== END 2019-01-11 15:48 | disposition home or self-care (01) ==
LOC: BICRAD 15:47
PROVIDERS: ATTEND Internal Medicine
DX: S22.42XD Multiple fractures of ribs, left side, subsequent encounter for fracture with routine healing (principal); J44.9 Chronic obstructive pulmonary disease, unspecified; I50.9 Heart failure, unspecified; J98.4 Other disorders of lung; J90 Pleural effusion, not elsewhere classified
CPT/HCPCS: 36415; 71046; 80053; 82248; 83615; 84100; 84443; 84550

== ENCOUNTER 2019-01-25 14:25 | Outpatient (CLI) | payer MEDICARE, BC ==
--- NOTE | 2019-01-25 14:52 | RAD ---
3 VIEWS LEFT left RIBS: 01/25/2019 COMPARISON: 01/11/2019. HISTORY: Reevaluate left-sided rib fractures. FINDINGS: Coarse irregular increased linear interstitial densities are noted throughout both lungs, b urszula assessed on chest radiograph also performed 01/25/2019. Partially imaged CT injectable Port-A-Cath present. Blunting of the costophrenic angle on the left and increased density within the left lung base may be on the basis of stable left pleural fluid/hemothorax. No discrete pneumothorax is evident on the left. There are lateral left-sided eighth and ninth rib fractures with minimal associated callus formation suggesting a minimal degree of interval healing. The fractures are still well seen. No new fractures are noted. IMPRESSION: Inferior lateral left-sided rib fractures as detailed above. Transcribed Date/Time: 01/25/2019 2:56 PM
--- NOTE | 2019-01-25 15:00 | RAD ---
2 VIEWS CHEST: Date: 01/25/19 HISTORY: Fall. Syncope. COMPARISON: 01/11/19. FINDINGS: Stable right-sided MediPort catheter. Stable configuration of the cardiac silhouette. Pulmonary vesse ls are normal. Right costophrenic angle clear. Persistent blunting of the left costophrenic angle due to small effusion. Chronic changes of the interstitium. Lungs are mildly hyperinflated. There is no pneumothorax. Remote kyphoplasty change is noted in the mid thoracic spine. IMPRESSION: 1. No significant lung parenchymal changes. 2. Stable left-sided pleural effusion. POS: OFF
== END 2019-01-25 14:26 | disposition home or self-care (01) ==
LOC: BICRAD 14:25
PROVIDERS: ATTEND Internal Medicine
DX: R55 Syncope and collapse (principal); J90 Pleural effusion, not elsewhere classified; S22.42XA Multiple fractures of ribs, left side, initial encounter for closed fracture; Z91.81 History of falling
CPT/HCPCS: 71046

== ENCOUNTER 2019-01-31 08:37 | Outpatient (CLI) | payer MEDICARE, BC ==
--- NOTE | 2019-01-31 09:37 | CT ---
CT CHEST WITH IV CONTRAST: HISTORY: Lung cancer COMPARISON: CTA chest of 09/20/2018 FINDINGS: Interval development of a left-sided small pleural effusion is seen with adjacent infiltrate/atelecta tic changes. Emphysematous and fibrotic changes in the lung lopez again seen. The 18 mm left upper lobe mass noted in the previous exam is essentially stable. No new lung nodules or masses are identif ied. 9 mm right paratracheal lymph node and 7 mm right para-aortic mediastinal lymph node remain stable. N o hilar lymphadenopathy is seen. No pericardial or right pleural effusion is seen. Changes of vertebroplasty at T9 are again seen. Focal sclerotic change involving the inferior aspect of the left T2 vertebral body, focus of sclerotic change in the mid lateral right scapula and probable healed fracture of the posterior left T11 rib are redemonstrated. There are new fractures involving involvin g left 9, 10, 11 ribs. Upper abdominal tomograms demonstrate renal cysts. IMPRESSION: 1. Interval development of small left pleural effusion since 09/20/2018. 2. New left 9, 10 and 11 rib fractures since 09/20/2018.
== END 2019-01-31 08:38 | disposition home or self-care (01) ==
LOC: BICCT 08:37
PROVIDERS: ATTEND Internal Medicine Hematology & Oncology
DX: C34.12 Malignant neoplasm of upper lobe, left bronchus or lung (principal); C79.51 Secondary malignant neoplasm of bone; J90 Pleural effusion, not elsewhere classified; S22.42XA Multiple fractures of ribs, left side, initial encounter for closed fracture
CPT/HCPCS: 71260

== ENCOUNTER 2019-02-02 18:38 | Inpatient (IN) | payer MEDICARE, BC ==
[2019-02-02] MEDS ORDERED: Albuterol Sulfate 2.5 mg/0.5 ml Neb ONE (19:27)
[2019-02-02] MEDS ORDERED: Albuterol Sulfate 2.5 mg/3 ml Neb ONE (19:27)
[2019-02-02 19:30] LABS: #Lymphocytes 0.7 thou/uL (1.20-3.40); #Monocytes 0.8 thou/uL (0.11-0.59); #Neutrophils 10.8 thou/uL (1.40-6.50); %Basophils 0.4 % (0.0-1.0); %Eosinophils 0.4 % (0.0-10.0); %Lymphocytes 5.8 % (21.0-51.0); %Monocytes 6.6 % (0.0-10.0); %Neutrophils 86.9 % (42.0-75.0); Hemoglobin 15.5 g/dL (14.0-18.0); Mean Corpuscular HGB CONC 32.6 g/dL (32.0-36.0); Mean Platelet Volume 9.5 fL (7.4-10.4); Platelet Count 122 thou/uL (130-400); Red Blood Cell (RBC) Count 4.54 mill/uL (4.70-6.10); White Blood Cell (WBC) Count 12.4 thou/uL (4.8-10.8)
[2019-02-02 19:50] LABS: ALT (SGPT) 26 U/L (8-55); AST (SGOT) 19 U/L (5-34); Albumin 3.6 g/dL (3.4-4.8); Alkaline Phosphatase 83 U/L (40-150); Anion Gap 14 mmol/L (10-20); BUN (Urea Nitrogen) 14 mg/dL (8.4-25.7); CK (CPK) 32 U/L (30-200); Calc. Creatinine Clearance 0 mL/min (70-130); Calcium 8.8 mg/dL (7.8-10.44); Carbon Dioxide 21 mmol/L (23-31); Chloride 103 mmol/L (98-107); Estimated GFR-MDRD 88; Globulin 3.1 g/dL (2.4-3.5); Glucose 176 mg/dL (83-110); Potassium 4.4 mmol/L (3.5-5.1); Protein, Total 6.7 g/dL (5.8-8.1); Sodium 134 mmol/L (136-145)
[2019-02-02] MEDS ORDERED: methylPREDNISolone Sod Succ/PF 125 MG/2 ML VIAL ONE (20:11)
[2019-02-02] MEDS ORDERED: Piperacillin/Tazobactam 4.5 GM VIAL ONE (21:44)
--- NOTE | 2019-02-03 08:27 | RAD ---
XR Chest Pa Lat STANDARD HISTORY: Increasing shortness of breath. History of emphysema and stage IV lung cancer. COMPARISON: Chest x-ray of 01/25/[address] of chest of 01/31/2019. FINDINGS: The heart size appears slightly enlarged. There are severe emphysematous lung changes seen. Right-sided Mediport catheter is present. The left-sided pleural effusion is definitely increased as compared to the prior chest x-ray and has probably also increased as compared to the prior CT although some of this difference may be related to the recumbent technique of the chest CT. Left-sided rib fractures are again identified. IMPRESSION: 1. Severe emphysematous lung change. 2. The left-sided pleural effusion appears to have increased in size.
[2019-02-03] MEDS ORDERED: Calcium Carbonate 500 MG ChewTAB PO PRN ×2 (10:30→10:37)
[2019-02-03] MEDS ORDERED: Ondansetron ODT 4 MG TAB PO PRN (10:30)
[2019-02-03] MEDS ORDERED: HYDROcodone/Acetaminophen 10/325 mg Tablet PO PRN (10:30)
[2019-02-03] MEDS ORDERED: Acetaminophen 325 MG TAB PO PRN (10:30)
[2019-02-03] MEDS ORDERED: Ondansetron PF 4 MG/2 ML Vial IVP PRN (10:30)
[2019-02-03] MEDS ORDERED: Sodium Chloride 0.65% Nasal 44 ML BOT EA NARE PRN (10:33)
[2019-02-03] MEDS ORDERED: ZOLPIDEM TARTRATE 5 MG PO PRN (10:37)
[2019-02-03] MEDS ORDERED: Zolpidem Tartrate 5 MG TAB PO PRN (10:51)
--- NOTE | 2019-02-03 10:55 | HP ---
PRIMARY CARE PHYSICIAN: Dr. Salinas. PRIMARY ONCOLOGIST: Dr. Daugherty. CHIEF COMPLAINT: Shortness of breath. HISTORY OF PRESENT ILLNESS: The patient is a 73-year-old male with COPD, tobacco dependence, and lung cancer, presented to the emergency room with above complaints. Over the last one week, the patient developed gradual worsening shortness of breath along with chest tightness and wheezing. He had cough with small amount of thick sputum. He denies any fever or chills. Shortness of breath was present on minimal exertion. Yesterday when he went for his cancer treatment, he was unable to walk from his car to the car to the treatment room. He was started on supplemental oxygen. He was sent to the emergency room for evaluation. He denies recent immobilization, travel, or leg swelling. No orthopnea. paroxysmal nocturnal dyspnea, or leg swelling reported. PAST MEDICAL HISTORY: 1. Chronic obstructive pulmonary disease. 2. Tobacco dependence. 3. Stage IV lung cancer, on chemotherapy. 4. Osteoporosis. 5. Hyperlipidemia. 6. Chronic insomnia. 7. Post-traumatic stress disorder. PAST SURGICAL HISTORY: Back surgery. ALLERGIES: NO KNOWN DRUG ALLERGIES. CURRENT HOME MEDICATION: 1. Aspirin 81 mg daily. 2. Symbicort 160/4.5 b.i.d. 3. Calcium with vitamin D daily. 4. Gabapentin 300 mg nightly. 5. Hartman as needed. 6. Protonix 40 mg daily. 7. Keytruda every three weeks. 8. Simvastatin 40 mg daily. 9. Zometa every three months. 10. Ambien as needed. 11. Prednisone 5 mg daily, which was recently started by Dr. Salinas. SOCIAL HISTORY: He currently lives at home with his family. He makes his own decision. Full code. Continues to smoke up to one pack a day. Drinks alcohol socially. No drug use. FAMILY HISTORY: Negative for premature coronary artery disease. REVIEW OF SYSTEMS: All other review of systems was reviewed and were found negative. PHYSICAL EXAMINATION: VITAL SIGNS: Temperature 98.1, respirations are 22, heart rate 81, blood pressure of 106/97, and O2 saturation 95% on 3 L nasal cannula. The patient was hypoxic in the in the emergency room. GENERAL: A 73-year-old male in mild respiratory distress, able to complete short phrases. HEENT: Head, atraumatic and normocephalic. Sclerae are anicteric. Moist mucous membranes. No oral lesion. NECK: Supple. No JVD. No carotid bruit. LUNGS: Showed diffuse expiratory wheezing with scattered rhonchi. Minimal accessory muscle use. No rales. HEART: S1 and S2 present. Regular rate and rhythm. No rubs or gallops appreciated. ABDOMEN: Soft and nontender. Bowel sounds are present. EXTREMITIES: No edema or calf tenderness. NEUROLOGY: Grossly nonfocal. Moves all 4 extremities. PSYCHIATRY: Alert, awake, and oriented x3. SKIN: Warm and dry. LYMPHATIC: No palpable lymph nodes in the neck. PERIPHERAL VASCULAR: Radial pulses palpable bilaterally. MUSCULOSKELETAL: No joint swelling or tenderness. LABORATORY FINDINGS: WBC 12.4, hemoglobin 15.5, hematocrit 47.3, and platelets are 122. Chemistry showed sodium 134, potassium 4.4, chloride 103, bicarb 21, BUN 14, and creatinine 0.85. Lactic acid 2.3. IMAGING STUDIES: Chest x-ray by my review was negative for infiltrate. The patient has chronic left pleural effusion as well. EKG by my review showed sinus tachycardia with heart rate of 113. IMPRESSION: 1. Acute hypoxic respiratory failure secondary to chronic obstructive pulmonary disease exacerbation. 2. Stage IV lung cancer, on Keytruda. 3. Lactic acidosis (mild). 4. Left Pleural effusion. 5. Hypertension. 6. Hyperlipidemia. 7. Chronic pain syndrome. 8. Chronic insomnia. 9. Post-traumatic stress disorder. 10. Ongoing tobacco abuse. PLAN: The patient will be monitored on the medical floor. We will continue IV steroids along with antibiotics. He received Zosyn and Levaquin in the emergency room. We will consult Dr. Carlson. Oxygen supplementation. Nebulizer every 4 hours. We will resume his home medications. Counseled on tobacco smoking. Recheck labs. Plan of care was discussed with the patient in detail. He stated understanding. Job ID: [id number] [facility]
[2019-02-03] MEDS: methylPREDNISolone Sod Succ 40 MG VIAL IVP SCH ×2 (12:58→18:08)
[2019-02-03] MEDS: cefTRIAXone\\ROCEPHIN 2 GM in Sodium Chloride 0.9% 100 ML IVPB SCH (12:58)
--- NOTE | 2019-02-03 13:37 | CON ---
DATE OF CONSULTATION: 02/03/2019 CONSULTING PHYSICIAN: Dr. Bauer. REASON FOR CONSULTATION: Hypoxemia. HISTORY OF PRESENT ILLNESS: The patient is a pleasant 73-year-old male with a history of metastatic lung cancer. I am not completely sure what cell type it is, but he is undergoing chemotherapy with Keytruda through Dr. Daugherty' office. His last dose was yesterday. He was noted to be hypoxic in the office there yesterday. He went home, but began having increasing shortness of breath and his girlfriend brought him to the hospital for further evaluation. He was found to be hypoxic. He had a substantial left-sided pleural effusion, which was also seen on films done within the last 48 hours as an outpatient. He says he has a left upper lobe lung cancer with metastasis to the neck and jaw. He knows of no other metastasis. He did fall about a month and a half ago and sustained 4 rib fractures on the left. He has significant COPD and is continuing to smoke about 1 pack per day. PAST MEDICAL HISTORY: 1. COPD. 2. Stage IV lung cancer. 3. Osteoporosis. 4. Hyperlipidemia. 5. Insomnia. 6. Posttraumatic stress disorder. PAST SURGICAL HISTORY: Back surgery. ALLERGIES: NONE. MEDICATIONS: Prior to admission, 1. Aspirin. 2. Symbicort. 3. Gabapentin. 4. Ottosen. 5. Protonix. 6. Keytruda. 7. Simvastatin. 8. Zometa. 9. Ambien. 10. Prednisone. SOCIAL HISTORY: Smokes 1 pack per day. Does not consume alcohol, except on social occasions. Does not use illicit drugs. FAMILY MEDICAL HISTORY: Unremarkable. REVIEW OF SYSTEMS: He denies any fever, chills, nausea, vomiting, chest pain, hemoptysis, melena, hematochezia, hematuria, or dysuria. PHYSICAL EXAMINATION: VITAL SIGNS: Temperature 98, pulse 94, blood pressure 120/70, O2 sats 93% on 3 L. GENERAL: He is awake and alert, but clearly dyspneic at rest. HEENT: Pupils are reactive. Sclerae anicteric. Oropharynx is clear. NECK: No adenopathy or JVD. LUNGS: Diminished breath sounds at the left base. Dullness to percussion in left base. Distant breath sounds on the right, but clear. CARDIAC: S1, S2. Regular. ABDOMEN: Soft, nontender, and nondistended. He has a MediPort noted in the right upper quadrant in his chest. EXTREMITIES: No clubbing, cyanosis, or edema. LABORATORY DATA: White blood cell count 12.4, hematocrit 47.3, and platelet count 122. Sodium 134, potassium 4.4, BUN 14, creatinine 0.8 glucose 176. IMAGING STUDIES: His chest x-ray shows a fairly substantial left effusion, which I did confirm to ultrasound. ASSESSMENT: 1. Pleural effusion. 2. Increasing hypoxemia. 3. Metastatic lung cancer. 4. Underlying severe chronic obstructive pulmonary disease. PLAN: Diagnostic and therapeutic left thoracentesis. This improvement in lung capacity post thoracentesis maybe enough to improve his oxygenation. However, I have a feeling he will probably still need home oxygen. The patient could probably be discharged to home with oxygen. He could follow up on thoracentesis results as an outpatient. I took a total of 1.1 L of bloody fluid off and sent it for cytology as well as other studies. Job ID: [id number]
--- NOTE | 2019-02-03 13:40 | OP ---
DATE OF PROCEDURE: 02/03/2019 PROCEDURE PERFORMED: Left thoracentesis. PREOPERATIVE DIAGNOSIS: Left pleural effusion. POSTOPERATIVE DIAGNOSIS: Left pleural effusion. ANESTHESIA: 1% lidocaine without epinephrine. DESCRIPTION OF PROCEDURE: Informed consent was obtained from the patient prior to the procedure. I went over the risks in detail including, but not limited to bleeding, infection, and external lung puncture. He signed the informed consent and agreed to proceed. Ultrasound was used to locate the best entry site. This was approximately at the 6th and 7th interspace at the lateral scapular line posteriorly on the left. Chlorhexidine was used to scrub the entry site. The site was then draped sterilely. 1% lidocaine was used to anesthetize the entry site. A [id number]-[id number] catheter was then inserted into the pleural space and approximately 1.1 L of bloody pleural fluid was removed and sent for routine studies. This procedure was tolerated well with minimal coughing at the conclusion of the procedure. Job ID: [id number]
--- NOTE | 2019-02-03 13:43 | RAD ---
CHEST TWO VIEWS: HISTORY: Thoracentesis. COMPARISON: Radiograph from the prior day. FINDINGS: Interval size decrease in layering with effusion. Linear opacities are present within both lower lob es. Cement within the mid thoracic spine compression fracture. Port catheter tip, inferior SVC. [place] emphysematous changes. IMPRESSION: 1. Interval size decrease, left layering effusion, without significant pneumothorax. 2. Healing left-sided rib fractures. POS: CET
[2019-02-03 15:19] LABS: BF Color Red; Body Fluid Source Thoracentesis Fluid; Clarity Cloudy/Turbid (Clear); RBC Background Count 0.002; Tube # 3
[2019-02-03 15:20] LABS: WBC/NonHematic-Auto 588 /cumm
[2019-02-03 15:21] LABS: RBC Count-Automated 177000 /cumm
[2019-02-03 15:36] VITALS: BMI 25.8
[2019-02-03 15:41] LABS: BF Segmented Neutrophils 24 %; Cell Count Non Hematic 63 %; Lymphocytes 13 %
[2019-02-03] MEDS: Azithromycin 500 MG in Sodium Chloride 0.9% 250 ML 250 ML IVPB SCH (15:43)
[2019-02-03] MEDS: Calcium Carbonate + Vit D 1 TAB PO SCH (18:08)
[2019-02-03] MEDS: Mometasone/Formoterol 120 PUFF INHALER INH SCH (18:10)
[2019-02-03] MEDS ORDERED: Enoxaparin Sodium 40 MG/0.4 ML SYRINGE SC SCH (21:00)
[2019-02-03] MEDS ORDERED: Simvastatin 40 MG TAB PO SCH (21:00)
[2019-02-03] MEDS ORDERED: Atorvastatin Calcium 20 MG TAB PO SCH (21:00)
[2019-02-03] MEDS ORDERED: Non-Formulary Item 1 EACH (Budesonide-Formoterol [Symbicort 80-4.5] 2 PUFF) INH SCH (21:00)
[2019-02-03] MEDS ORDERED: Gabapentin 300 MG CAP PO SCH (21:00)
[2019-02-04] MEDS: methylPREDNISolone Sod Succ 40 MG VIAL IVP SCH ×2 (00:15→06:50)
[2019-02-04 06:17] LABS: #Lymphocytes 0.4 thou/uL (1.20-3.40); #Monocytes 0.4 thou/uL (0.11-0.59); %Basophils 0.1 % (0.0-1.0); %Eosinophils 0.1 % (0.0-10.0); %Lymphocytes 3.3 % (21.0-51.0); %Monocytes 3.8 % (0.0-10.0); %Neutrophils 92.7 % (42.0-75.0); Hemoglobin 13.8 g/dL (14.0-18.0); Mean Corpuscular HGB CONC 32.2 g/dL (32.0-36.0); Mean Corpuscular Hemoglobin 33.9 pg (27.0-31.0); Mean Platelet Volume 9.4 fL (7.4-10.4); Platelet Count 128 thou/uL (130-400); RBC Distribution Width 13.9 % (11.5-14.5); Red Blood Cell (RBC) Count 4.09 mill/uL (4.70-6.10); White Blood Cell (WBC) Count 10.8 thou/uL (4.8-10.8)
[2019-02-04 06:30] LABS: Anion Gap 13 mmol/L (10-20); BUN (Urea Nitrogen) 21 mg/dL (8.4-25.7); Calc. Creatinine Clearance 83 mL/min (70-130); Calcium 8.9 mg/dL (7.8-10.44); Carbon Dioxide 25 mmol/L (23-31); Chloride 106 mmol/L (98-107); Estimated GFR-MDRD Greater than 90; Glucose 154 mg/dL (83-110); Magnesium 2.4 mg/dL (1.6-2.6); Potassium 4.5 mmol/L (3.5-5.1); Sodium 139 mmol/L (136-145)
[2019-02-04] MEDS: Mometasone/Formoterol 120 PUFF INHALER INH SCH (07:20)
[2019-02-04] MEDS ORDERED: [UNRECOGNIZED DRUG - OTHER] PO SCH (09:00)
[2019-02-04] MEDS ORDERED: FOLIC ACID PO SCH (09:00)
[2019-02-04] MEDS ORDERED: VITAMIN D3 PO SCH (09:00)
[2019-02-04] MEDS ORDERED: CALCIUM CARBONATE PO SCH (09:00)
[2019-02-04] MEDS ORDERED: Prenatal Vitamin 1 TAB PO SCH (09:00)
[2019-02-04] MEDS ORDERED: IRON PO SCH (09:00)
[2019-02-04] MEDS ORDERED: PRENATAL PO SCH (09:00)
[2019-02-04] MEDS ORDERED: [UNRECOGNIZED DRUG - OTHER] PO SCH (09:00)
[2019-02-04] MEDS ORDERED: CHOLECALCIFEROL 4000 UNIT PO SCH (09:00)
[2019-02-04] MEDS ORDERED: Aspirin 81 mg Enteric Coated Tablet PO SCH (09:00)
--- NOTE | 2019-02-04 09:08 | PRG ---
DATE OF SERVICE: 02/04/2019 SUBJECTIVE: The patient is doing better today. He has no complaints. OBJECTIVE: VITAL SIGNS: On exam, his O2 saturation was 92% on room air at rest, pulse 91, and respirations 16. HEENT: Unremarkable. NECK: No JVD. LUNGS: Clear anteriorly. CARDIAC: S1 and S2, regular. ABDOMEN: Soft and nontender. EXTREMITIES: No edema. IMAGING DATA: His chest x-ray shows improvement in left pleural effusion. LABORATORY DATA: White blood cell count 10, hematocrit 43, and platelet count 128. Sodium 139, potassium 4.5, BUN 21, creatinine 0.8, and glucose 154. Pleural fluid showed a predominance of red blood cells indicating this could be an old hemothorax. The LDH was 1630. Pleural fluid glucose was 30. Total protein was 4. ASSESSMENT: Traumatic left hemothorax versus malignant pleural effusion. PLAN: Cytology will not be back until next week. The patient is stable for discharge to home today. It does not look like he will need home oxygen. I will be out of town for the next 2 weeks. He can call my office to get cytology results from the pleural fluid or he can get it through Dr. Daugherty' office. Job ID: [id number]
[2019-02-04] MEDS: Calcium Carbonate + Vit D 1 TAB PO SCH ×2 (09:29→16:02)
--- NOTE | 2019-02-04 11:09 | PDOC.EVN ---
Event Note - Event Note Event Note: Patient seen and examined. SOB improving. RA sats 87%. On 2 lit O2 sats 95%. Will arrange for home O2. Diagnosis - COPD
[2019-02-04] MEDS: cefTRIAXone\\ROCEPHIN 2 GM in Sodium Chloride 0.9% 100 ML IVPB SCH (11:16)
--- NOTE | 2019-02-04 11:43 | PDOC.EVN ---
Event Note - Event Note Event Note: Patient seen and examined. SOB improving. RA sats 87%. On 2 lit O2 sats 95%. Will arrange for home O2 and home nebulizer. Diagnosis - COPD
[2019-02-04] MEDS: Azithromycin 500 MG in Sodium Chloride 0.9% 250 ML 250 ML IVPB SCH (13:12)
[2019-02-04 16:39] VITALS: BP 108/69; TEMP 98
[2019-02-04] MEDS ORDERED: predniSONE 20 MG TAB PO SCH (17:00)
--- NOTE | 2019-02-04 19:00 | DIS ---
DATE OF ADMISSION: 02/02/2019 DATE OF DISCHARGE: 02/04/2019 DISCHARGE DISPOSITION: Home. FOLLOWUP: 1. Follow up with primary care physician, Dr. Salinas after 1 week. 2. Follow up with Dr. Daugherty as scheduled. 3. Follow up with Dr. Esa Carlson in 1 to 2 weeks. 4. The patient was advised to follow up on the pathology report from thoracentesis. DISCHARGE MEDICATIONS: 1. Albuterol inhaler as needed. 2. Azithromycin 250 mg daily for next 4 days. 3. DuoNebs nebulizer as needed. 4. Prednisone taper. 5. All other home medications were left unchanged. 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 Carlson. INPATIENT PROCEDURES: On 03 February 2019, the patient underwent left thoracentesis for left pleural effusion. Approximately, 1.1 L of bloody pleural fluid was removed. Pathology is pending at this time. BRIEF HOSPITAL COURSE: The patient is a 73-year-old male with COPD and stage IV lung cancer, presented to the hospital with shortness of breath. Please refer to the history and physical for further details. The patient was admitted to the hospital with a diagnosis of acute hypoxic respiratory failure secondary to chronic obstructive pulmonary disease exacerbation. He was started on oxygen with nebulizer treatment. He underwent thoracentesis for left-sided pleural effusion by Dr. Carlson. Pathology is pending at this time. His symptoms significantly improved after thoracentesis. On the day of discharge, his symptoms have significantly improved. His O2 sats however are still 87% on room air. This improved to 95% on 2 L nasal cannula. Home oxygen will be arranged prior to discharge. He will follow up with Dr. Carlson as outpatient for pathology. Home nebulizer will be set as well. He was sent a prescription for albuterol inhaler as well as DuoNebs. Plan of care was discussed with the patient in detail, he stated understanding. TIME SPENT: Total time coordinating the discharge of this patient was 38 minutes. Job ID: [id number]
--- NOTE | 2019-02-05 09:35 | EKG ---
Test Reason : Blood Pressure : / mmHG Vent. Rate : 113 BPM Atrial Rate : 113 BPM P-R Int : 158 ms QRS Dur : 080 ms QT Int : 326 ms P-R-T Axes : 049 066 028 degrees QTc Int : 447 [address] Sin[address] tachycardia N[address] abnormality Abnormal ECG Confirmed by ROLY REILLY D.O. ([id number]), visual effects editor ALLISON VELAZQUEZ ([id number]) on 02/05/2019 9:35:06 AM Referred By: Confirmed By:ROLY REILLY D.O.
== END 2019-02-04 17:12 | disposition home or self-care (01) | DRG 189 ==
LOC: ERS 18:38 → T4-B 22:00
PROVIDERS: ADMIT Hospitalist; ATTEND Hospitalist
PROC: 0W9B3ZZ Drainage of Left Pleural Cavity, Percutaneous Approach (ICD-10-PCS; principal; 2019-02-03)
DX: J96.01 Acute respiratory failure with hypoxia (principal); J44.1 Chronic obstructive pulmonary disease with (acute) exacerbation; C34.90 Malignant neoplasm of unspecified part of unspecified bronchus or lung; E87.2 Acidosis; J90 Pleural effusion, not elsewhere classified; I10 Essential (primary) hypertension; E78.5 Hyperlipidemia, unspecified; G89.4 Chronic pain syndrome; G47.00 Insomnia, unspecified; F43.10 Post-traumatic stress disorder, unspecified; M81.0 Age-related osteoporosis without current pathological fracture; F17.210 Nicotine dependence, cigarettes, uncomplicated; Z79.82 Long term (current) use of aspirin
CPT/HCPCS: 36415; 71046; 71260; 80048; 80053; 82150; 82550; 82945; 83605; 83615; 83735; 83986; 84157; 84478; 84484; 85025; 85060; 87040; 87070; 87116; 87205; 87206; 88112; 88305; 88341; 88342; 89051; 93005; 94640; 96361; 96365; 96366; 96367; J0456; J0696; J1642; J1650; J1956; J2543; J2920; J2930; J3490; J7050; J7512; J7611; J7620

== ENCOUNTER 2019-02-27 10:36 | Inpatient (IN) | payer MEDICARE, BC ==
[2019-02-27 11:11] LABS: Hemoglobin 14.2 g/dL (14.0-18.0); Mean Corpuscular HGB CONC 33.5 g/dL (32.0-36.0); Mean Corpuscular Hemoglobin 34.8 pg (27.0-31.0); Mean Platelet Volume 8.8 fL (7.4-10.4); Platelet Count 147 thou/uL (130-400); RBC Distribution Width 14.5 % (11.5-14.5); Red Blood Cell (RBC) Count 4.07 mill/uL (4.70-6.10); White Blood Cell (WBC) Count 10.1 thou/uL (4.8-10.8)
[2019-02-27 11:26] LABS: ALT (SGPT) 19 U/L (8-55); AST (SGOT) 15 U/L (5-34); Albumin 3.6 g/dL (3.4-4.8); Alkaline Phosphatase 78 U/L (40-150); Anion Gap 13 mmol/L (10-20); BUN (Urea Nitrogen) 17 mg/dL (8.4-25.7); Bilirubin, Total 0.6 mg/dL (0.2-1.2); CK (CPK) 23 U/L (30-200); Calc. Creatinine Clearance 0 mL/min (70-130); Calcium 10.4 mg/dL (7.8-10.44); Carbon Dioxide 31 mmol/L (23-31); Chloride 98 mmol/L (98-107); Estimated GFR-MDRD 89; Globulin 2.8 g/dL (2.4-3.5); Glucose 129 mg/dL (83-110); Potassium 3.9 mmol/L (3.5-5.1); Protein, Total 6.4 g/dL (5.8-8.1); Sodium 138 mmol/L (136-145)
--- NOTE | 2019-02-27 11:32 | CT ---
CTA Angio Chest W WO Con 02/27/2019 10:50 AM Indication: Shortness of breath Technique: Multiple CTA images were obtained of the thorax with IV contrast. 3D reformatted images were constructed from the raw data. Comparison: CT the chest dated January 31, 2019 Findings: Pulmonary arteries: No central or segmental pulmonary embolus is evident. Heart and Great Vessels: There are mild/moderate calcifications involving the thoracic aorta and cor onary arteries There is an enlarged lymph node within the left infrahilar region measuring 1.3 cm. There is a large subcarinal lymph and measuring 1.4 cm. There is enlarged right paratracheal lymph no de measuring 1 cm. There is an enlarged lymph node adjacent to the ascending aorta measuring 8 mm. Lungs:There is persistent airspace consolidation in the left lower lobe and lingula possibly related to compressive atelectasis; however, a component of pneumonia cannot be excluded. A 1.8 cm spiculated nodule within the left upper lobe is stable on image 38 of series 2. There is severe emphy sema Pleural space: There is been interval enlargement of the left-sided pleural effusion now moderate in size Upper Abdomen: No acute abnormality. Osseous Structures: There is a stable sclerotic expansile lesion involving the left posterior 10th r ib. There are healing lateral sixth through eighth rib fractures. There are healing posterior left eighth through 10th rib fractures. These rib fractures were present on the prior exam. There is stabl e vertebral plasty change T8. There is a stable superior endplate compression abnormality of T2. Impression: 1. No central or seminal pulmonary embolus. 2. Worsening moderate left pleural effusion with persistent consolidation in the left lower lobe and lingula. The consolidation can be seen with compressive atelectasis from the pleural effusion; however, component pneumonia is not excluded. 3. Stable left upper lobe spiculated pulmonary nodule suspicious for malignancy. 4. 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 5. Stable multiple healing left sided rib fractures. 6. Enlarged lymph nodes of the left hilar region and mediastinum may be reactive in nature related to malignant lymphadenopathy.
[2019-02-27 11:42] LABS: Band 4 % (5-11); Eosinophils 1 % (0-10); Lymphocytes 12 % (21-51); MDiff Complete? YES; Monocytes 6 % (0-10); Neutrophil 77 % (42-75); Ovalocytes SLIGHT = 2-5 cells (100X) (0-1/hpf); Platelet Morphology Comment Appears Adequate; Polychromasia SLIGHT = 2-3 cells (100X) (0-2/hpf)
[2019-02-27 11:48] LABS: CKMB 1.7 ng/mL (0-6.6)
[2019-02-27] MEDS ORDERED: ISOVUE-370 76%-LOCM 1 ML ONE (12:01)
[2019-02-27 12:44] LABS: Actual Bicarbonate (HCO3a) 28.5 mEq/L (22-28); Analyzer IN Cardio ER; Base Excess (BEa) 3.9 mEq/L (-2.0 to +3.0); CO2 Tension 42.6 mmHg (35.0-45.0); Carboxyhemoglobin (COHb) 1.9 gm% (0.0-3.0); O2 Tension (PaO2) 67.9 mmHg (> 70.0); Potassium - ABG Lab 4.08 mmol/L (3.70-5.30); pH, Arterial 7.44 (7.35-7.45)
[2019-02-27 12:45] LABS: Puncture Site RRA
[2019-02-27] MEDS ORDERED: Acetaminophen 325 MG TAB PO PRN ×2 (14:00→17:50)
[2019-02-27] MEDS ORDERED: Ondansetron PF 4 MG/2 ML Vial IVP PRN (14:00)
[2019-02-27] MEDS ORDERED: Ondansetron ODT 4 MG TAB SL PRN (14:00)
[2019-02-27] MEDS ORDERED: Aspirin 325 MG TAB ONE (14:47)
[2019-02-27] MEDS ORDERED: Aspirin Chewable 81 MG TAB ONE (14:49)
[2019-02-27 15:24] LABS: Troponin I 0.092 ng/mL (< 0.028)
--- NOTE | 2019-02-27 15:49 | CON ---
DATE OF CONSULTATION: 02/27/2019 CONSULTING PHYSICIAN: Dr. Velez from the Emergency Department. REASON FOR CONSULTATION: Pleural effusion. HISTORY OF PRESENT ILLNESS: The patient is a 73-year-old male, who was seen in the hospital by me in consultation around February 03. He has a history of adenocarcinoma and a malignant left pleural effusion. He was seen at Dr. Salinas's office last week with symptoms of shortness of breath. Given that the effusion had already recurred, I had asked for him to be referred to [facility] Surgery, whom he is supposed to see this coming Thursday in the office for consideration of PleurX catheter placement. He presents to the ER today with shortness of breath. This mainly occurs upon standing up and trying to walk. According to the emergency room physician, he has some orthostasis. I have reviewed his x-rays and CT scans and he has reaccumulated left pleural effusion to about the extent he had during the last hospitalization. At that time, I tapped it and was about 1.1 L. PAST MEDICAL HISTORY: 1. Stage IV lung cancer, which is now considered Keytruda resistant. 2. Chronic obstructive pulmonary disease. 3. Osteoporosis. 4. Hyperlipidemia. 5. Insomnia. 6. Posttraumatic stress disorder. PAST SURGICAL HISTORY: Back surgery. ALLERGIES: NONE. MEDICATIONS: 1. Aspirin. 2. Symbicort. 3. Gabapentin. 4. [place]. 5. Protonix. 6. Simvastatin. 7. Zometa. 8. Ambien. 9. Prednisone. SOCIAL HISTORY: One pack per day smoker. Does not consume alcohol. REVIEW OF SYSTEMS: Otherwise negative. PHYSICAL EXAMINATION: VITAL SIGNS: Stable. Of note, O2 saturation is 100% on 3 L. HEENT: Unremarkable. NECK: No adenopathy or JVD. LUNGS: Diminished breath sounds in left base, approximately one-third the way up. Right side clear. CARDIAC: S1 and S2. Regular. ABDOMEN: Soft, nontender. EXTREMITIES: No edema. IMAGING STUDIES: CT was reviewed, shows a moderate-sized left pleural effusion. LABORATORY DATA: White blood cell count 10, hematocrit 42, and platelet count 147. PH of 7.44, pCO2 of 42, pO2 of 67. Sodium 138, potassium 3.9, BUN 17, creatinine 0.8, glucose 129. ASSESSMENT: 1. Orthostatic symptoms. 2. Increased shortness of breath, likely related to malignant left effusion. RECOMMENDATIONS: 1. I would recommend inpatient admission to the hospitalist service. Consult CV Surgery for PleurX catheter placement when either Dr. Carrasco or Dr. Servin are available. 2. The effusion does not need to be emergently drained at this time as it is beneficial to have some fluid in the pleural space at the time of the operation. 3. Further recommendations per Internal Medicine and Oncology. Job ID: [id number]
[2019-02-27 16:08] VITALS: BMI 26.6
[2019-02-27 17:18] LABS: Troponin I 0.077 ng/mL (< 0.028)
[2019-02-27] MEDS ORDERED: Senokot S 8.6-50 MG TAB PO PRN (17:50)
[2019-02-27] MEDS ORDERED: Bisacodyl 10 MG SUPP PR PRN (17:50)
[2019-02-27] MEDS ORDERED: Guaifenesin DM 100-10/5 ML UDCUP PO PRN (17:50)
[2019-02-27] MEDS: Mometasone/Formoterol 120 PUFF INHALER INH SCH (18:10)
--- NOTE | 2019-02-27 18:24 | HP ---
REASON FOR ADMISSION: Recurrent left pleural effusion with stage IV adenocarcinoma. HISTORY OF PRESENTING ILLNESS: The patient gives history of shortness of breath on minimal exertion. He was unable to ambulate in the house. He is on home oxygen of 2.5 L and crimped it up to 3 L despite which was short of breath. He knew he had some fluid accumulation. He has had prior thoracentesis done in January by Dr. Carlson. He was diagnosed with adenocarcinoma in January of 2018 and has completed radiation therapy and is on immunotherapy Keytruda at present. Per Dr. Carlson's note, the patient appears to be resistant to Keytruda at present. He has been sleeping, sitting upright for last 3 to 4 days now due to severe shortness of breath. No fever, cough, or expectoration. 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 He continues to smoke, but has been on Chantix from last 1 week and is trying to quit now. He has come down to 10 cigarettes a day. PAST MEDICAL AND SURGICAL HISTORY: History of COPD/emphysema; adenocarcinoma of left lung, stage IV, on immunotherapy (Keytruda); dyslipidemia; osteoporosis; insomnia; PTSD; and back surgery. CURRENT MEDICATIONS: The patient is on; 1. Protonix 40 mg p.o. daily. 2. Keytruda infusions every 3 weeks. 3. Prednisone 5 mg p.o. daily. 4. Multivitamin one tab once daily. 5. Zocor 40 mg p.o. daily. 6. Chantix, they started a month back. 7. Zoledronic acid infusion every three months for hypercalcemia related to lung cancer. 8. Zolpidem 5 mg p.o. at bedtime p.r.n. for insomnia. 9. [place] 10/325 q.6 p.r.n. 10. Gabapentin 300 mg p.o. at bedtime. 11. Vitamin D3 of 1000 units p.o. daily. 12. Symbicort 160/4.5 mcg 2 puffs twice daily. 13. Aspirin 81 mg p.o. daily. 14. DuoNeb q.6 hourly. ALLERGIES: NO KNOWN DRUG ALLERGIES. PERSONAL HISTORY: The patient has come down to 10 cigarettes a day. Drinks on social occasions. Does not abuse drugs. Lives with his long-time girlfriend, Ms. Janice Manley. FAMILY HISTORY: Mother in her 80s. She had complications and she had hip replacement surgery and of stroke. Father of esophageal cancer at the age of 62 years. He was a smoker as well. He apparently got exposed to diesel smoke per the patient. Code status is full. The patient wants at least 2 attempts to be done in a series and stop resuscitating if he codes for the third time on the same day. Power of tax associate attorney is his long-time girlfriend, Ms. Janice Manley. He has 2 children, who are grown up and says he is in touch with them as well. REVIEW OF SYSTEMS: CONSTITUTIONAL: Negative for weight loss or gain, ability to conduct usual activities. SKIN: Negative for rash, itching. EYES: Negative for double vision, pain. ENT/MOUTH: Negative for nose bleeding, neck stiffness, pain, tenderness. CARDIOVASCULAR: Negative for palpitations, dyspnea on exertion, orthopnea. RESPIRATORY: Negative for shortness of breath, wheezing, cough, hemoptysis, fever or night sweats. GASTROINTESTINAL: Negative for poor appetite, abdominal pain, heartburn, nausea, vomiting, constipation, or diarrhea. GENITOURINARY: Negative for urgency, frequency, dysuria, nocturia. MUSCULOSKELETAL: Negative for pain, swelling. NEUROLOGIC/PSYCHIATRIC: Negative for anxiety, depression. ALLERGY/IMMUNOLOGIC: Negative for skin rash, bleeding tendency. PHYSICAL EXAMINATION: GENERAL: The patient is a 73-year-old male, who is currently not in any acute distress. VITAL SIGNS: Blood pressure 116/74, pulse 110 per minute, respiratory rate 26 per minute, temperature 98.2 degrees Fahrenheit, and saturating 83% on 3 L oxygen on arrival. NECK: Supple. No elevated JVD. HEENT: Eyes; extraocular muscles intact. Pupils reacting to light. Oral cavity, mucous membranes are dry. No exudates or congestion. CARDIOVASCULAR SYSTEM: S1 and S2 heard, regular rhythm. RESPIRATORY SYSTEM: Decreased air entry in the left infrascapular area. Scattered rhonchi plus no wheezes. ABDOMEN: Soft. Bowel sounds heard. No tenderness, rigidity, or guarding. EXTREMITIES: No peripheral edema or calf tenderness. VASCULAR SYSTEM: Peripheral pulses 1+ bilateral. No ischemic ulcerations or gangrene. CENTRAL NERVOUS SYSTEM: No gross focal deficits noted. The patient is alert, awake, oriented well. PSYCHIATRIC SYSTEM: The patient's mood is euthymic. No hallucinations or delusions. IMAGING DATA: CT angio chest done shows no evidence of PE. There is worsening of moderate left pleural effusion with compressive atelectasis seen, stable left upper lobe spiculated pulmonary nodule suspicious for malignancy. There is stable osteoblastic metastatic lesion of left posterior 10th rib. There is multiple healing left-sided rib fractures and largest left hilar lymph nodes and mediastinal lymph nodes as well. EKG done shows sinus tach at 102 beats per minute. LABORATORY DATA: White count of 10, H and H of 14 and 42, platelet count 147, MCV is 104 with 77% neutrophils. Blood gas; pH of 7.44, pCO2 of 42, pO2 of 67, and bicarb 28. Electrolytes are stable, BUN 17, creatinine 0.8 serum bicarb 31, and serum glucose 129. Troponin I indeterminate with peaking up to 0.09, CK-MB 1.7. Albumin is 3.6. BNP is 13. CLINICAL IMPRESSION AND PLAN: The patient will be admitted to medical floor for recurrent left pleural effusion due to stage IV adenocarcinoma of lung. Dr. Carlson has already evaluated him on the floor here. The plan is for PleurX catheter in the morning. I have placed a consult for Dr. Servin, who was on-call tomorrow. We will continue his aspirin, Lipitor, DuoNeb, Symbicort inhalers, Neurontin, prednisone, Protonix, and Ambien as before. The patient will be taught how to use PleurX catheter prior to discharge. His overall prognosis is guarded. Per Dr. Carlson's note, the patient appears to have resistance to Keytruda with regard to adenocarcinoma of lung. Job ID: [id number]
[2019-02-27] MEDS: Nicotine 21 MG PATCH TD SCH (19:11)
[2019-02-27] MEDS: Atorvastatin Calcium 20 MG TAB PO SCH (20:51)
[2019-02-27] MEDS: Gabapentin 300 MG CAP PO SCH (20:51)
[2019-02-27] MEDS: HYDROcodone/Acetaminophen 10/325 mg Tablet PO PRN (20:51)
[2019-02-27] MEDS ORDERED: Famotidine 20 MG TAB PO SCH (21:00)
[2019-02-27] MEDS: Zolpidem Tartrate 5 MG TAB PO PRN (22:23)
[2019-02-28 05:54] LABS: #Basophils 0.1 thou/uL (0.0-0.2); #Eosinphils 0.3 thou/uL (0.0-0.7); #Lymphocytes 1.1 thou/uL (1.20-3.40); #Monocytes 0.8 thou/uL (0.11-0.59); #Neutrophils 6.2 thou/uL (1.40-6.50); %Basophils 0.6 % (0.0-1.0); %Eosinophils 3.9 % (0.0-10.0); %Lymphocytes 13.3 % (21.0-51.0); %Monocytes 9.8 % (0.0-10.0); %Neutrophils 72.4 % (42.0-75.0); Hemoglobin 13.3 g/dL (14.0-18.0); Mean Corpuscular HGB CONC 32.2 g/dL (32.0-36.0); Mean Corpuscular Hemoglobin 33.6 pg (27.0-31.0); Mean Platelet Volume 8.7 fL (7.4-10.4); Platelet Count 128 thou/uL (130-400); RBC Distribution Width 14.2 % (11.5-14.5); Red Blood Cell (RBC) Count 3.97 mill/uL (4.70-6.10); White Blood Cell (WBC) Count 8.5 thou/uL (4.8-10.8)
[2019-02-28 06:12] LABS: Anion Gap 11 mmol/L (10-20); BUN (Urea Nitrogen) 14 mg/dL (8.4-25.7); Calc. Creatinine Clearance 85 mL/min (70-130); Calcium 9.5 mg/dL (7.8-10.44); Carbon Dioxide 31 mmol/L (23-31); Chloride 100 mmol/L (98-107); Estimated GFR-MDRD Greater than 90; Glucose 83 mg/dL (83-110); Sodium 138 mmol/L (136-145)
[2019-02-28] MEDS: predniSONE 20 MG TAB PO SCH (08:30)
[2019-02-28] MEDS: Varenicline Tartrate 0.5 MG TAB PO SCH ×2 (08:30→20:20)
[2019-02-28] MEDS: Enoxaparin Sodium 40 MG/0.4 ML SYRINGE SC SCH (08:30)
[2019-02-28] MEDS: Aspirin 81 mg Enteric Coated Tablet PO SCH (08:30)
[2019-02-28] MEDS: Mometasone/Formoterol 120 PUFF INHALER INH SCH ×2 (08:54→18:43)
--- NOTE | 2019-02-28 09:54 | PRG ---
DATE OF SERVICE: 02/28/2019 SUBJECTIVE: The patient is doing about the same. He had no acute complaints. OBJECTIVE: VITAL SIGNS: On exam, temperature 97.5, pulse 96, blood pressure 102/74, O2 saturation 96% on 3 L. HEENT: Unremarkable. NECK: No adenopathy or JVD. LUNGS: Diminished breath sounds at the left base, right side clear. CARDIAC: S1, S2. Regular. ABDOMEN: Soft. EXTREMITIES: No edema. ASSESSMENT: Left malignant pleural effusion with reaccumulation. PLAN: Thoracic surgery is being consulted for consideration of PleurX catheter placement. Following with you. Job ID: [id number]
--- NOTE | 2019-02-28 13:11 | PDOC.PN ---
- Subjective Encounter Start Date: 02/28/19 Encounter Start Time: 09:40 Subjective: no sob, feels better - Objective Resuscitation Status - Order Detail: 02/27/19 17:31 Resuscitation Status Routine Resuscitation Status: FULL: Full Resuscitation Discussed with: POA: ,Favor-girlfriend Additional comments: Not to resuscitate more than 2 times at a stretch. MAR Reviewed: Yes Vital Signs & Weight: Vital Signs (12 hours) Temp Pulse Resp BP Pulse Ox 02/28/19 08:54 96 16 02/28/19 08:35 96 02/28/19 08:34 96 12 02/28/19 08:24 97.5 F L 87 24 H 102/74 96 02/28/19 04:00 18 F L 80 18 115/85 94 L Weight Weight 169 lb 12.095 oz Result Diagrams: 02/28/19 05:22 02/28/19 05:23 Phys Exam - Physical Examination HEENT: PERRLA, moist MMs Neck: no JVD, supple Respiratory: no wheezing, no rales rhonchi+ Cardiovascular: RRR, no significant murmur Gastrointestinal: soft, non-tender, positive bowel sounds Musculoskeletal: no edema, pulses present Neurological: non-focal, moves all 4 limbs Psychiatric: normal affect, A&O x 3 Dx/Plan (1) Recurrent left pleural effusion Code(s): J90 - PLEURAL EFFUSION, NOT ELSEWHERE CLASSIFIED Status: Acute Comment: sec to malignancy (2) Adenocarcinoma of lung, stage 4 Code(s): C34.90 - MALIGNANT NEOPLASM OF UNSP PART OF UNSP BRONCHUS OR LUNG Status: Chronic Qualifiers: Laterality: left Qualified Code(s): C34.92 - Malignant neoplasm of unspecified part of left bronchus or lung Comment: on Keytruda (3) Emphysema lung Code(s): J43.9 - EMPHYSEMA, UNSPECIFIED Status: Chronic (4) Tobacco abuse Code(s): Z72.0 - TOBACCO USE Status: Chronic (5) PTSD (post-traumatic stress disorder) Code(s): F43.10 - POST-TRAUMATIC STRESS DISORDER, UNSPECIFIED Status: Chronic (6) Dyslipidemia Code(s): E78.5 - HYPERLIPIDEMIA, UNSPECIFIED Status: Chronic - Plan for Pleuryx cath by CTS -: may feed him if surgery is planned for tomorrow? -: continue nebs, dulera, neurontin, prednisone home dose -: asp, lipitor -: to mobilize as tolerated * . Review of Systems - Medications/Allergies Allergies/Adverse Reactions: Allergies Allergy/AdvReac Type Severity Reaction Status Date / Time No Known Allergies Allergy Verified 02/27/19 16:12 Medications: Current Medications Acetaminophen (Tylenol) 650 mg PO Q4H PRN PRN Reason: Headache/Fever/Mild Pain (1-3) Hydrocodone Bitart/Acetaminophen ([place] 10/325) 1 tab PO Q4H PRN PRN Reason: Moderate to Severe Pain (6-10) Last Admin: 02/27/19 20:51 Dose: 1 tab Albuterol/Ipratropium (Duoneb) 3 ml NEB [id number] [facility] Last Admin: 02/28/19 08:34 Dose: 3 ml Aspirin (Ecotrin) 81 mg PO DAILY [facility] Last Admin: 02/28/19 08:30 Dose: Not Given Atorvastatin Calcium (Lipitor) 20 mg PO HS [facility] Last Admin: 02/27/19 20:51 Dose: 20 mg Bisacodyl (Dulcolax) 10 mg PA DAILYPRN PRN PRN Reason: Constipation Enoxaparin Sodium (Lovenox) 40 mg SC 0900 [facility] Last Admin: 02/28/19 08:30 Dose: Not Given Gabapentin (Neurontin) 300 mg PO HS [facility] Last Admin: 02/27/19 20:51 Dose: 300 mg Guaifenesin/Dextromethorphan (Robitussin Dm) 15 ml PO Q4H PRN PRN Reason: Cough Mometasone Furoate/Formoterol Fumar (Dulera 100 Mcg/5 Mcg Inhaler) 2 puff INH BID-RT [facility] Last Admin: 02/28/19 08:54 Dose: 2 puff Nicotine (Nicoderm Patch) 21 mg TD Q24HR [facility] Last Admin: 02/27/19 19:11 Dose: Not Given Pantoprazole Sodium (Protonix) 40 mg PO DAILY [facility] Last Admin: 02/28/19 08:30 Dose: Not Given Prednisone (Prednisone) 5 mg PO DAILY [facility] Last Admin: 02/28/19 08:30 Dose: Not Given Senna/Docusate Sodium (Senokot S) 2 tab PO BIDPRN PRN PRN Reason: Constipation Varenicline (Chantix) 2 mg PO BID [facility] Last Admin: 02/28/19 08:30 Dose: Not Given Zolpidem Tartrate (Ambien) 5 mg PO HSPRN PRN PRN Reason: Insomnia Last Admin: 02/27/19 22:23 Dose: 5 mg
[2019-02-28] MEDS: Nicotine 21 MG PATCH TD SCH (18:07)
[2019-02-28] MEDS: Atorvastatin Calcium 20 MG TAB PO SCH (20:20)
[2019-02-28] MEDS: Gabapentin 300 MG CAP PO SCH (20:20)
[2019-02-28] MEDS: Zolpidem Tartrate 5 MG TAB PO PRN (20:23)
--- NOTE | 2019-02-28 23:10 | CON ---
DATE OF CONSULTATION: 02/28/2019 HISTORY OF PRESENT ILLNESS: Mr. Parker is a 73-year-old gentleman, who has history of metastatic adenocarcinoma of the lung undergoing Keytruda treatment. In the end of December, he fell and fractured ribs on his left. He had a pleural effusion that was tapped on February 03 with malignant cells. A liter of fluid was tapped. He has re-presented with reaccumulation of the malignant left-sided pleural effusion on referral for PleurX catheter placement. PAST MEDICAL HISTORY: 1. Advanced stage adenocarcinoma of the lung. 2. Continued tobacco abuse. 3. COPD. 4. Osteoporosis. 5. Dyslipidemia. 6. Insomnia. 7. PTSD. PAST SURGICAL HISTORY: 1. Back surgery. 2. Left thoracentesis. ALLERGIES: NONE. MEDICATIONS: Noted. SOCIAL HISTORY: He continues to smoke a pack of cigarettes a day. He does not use alcohol. REVIEW OF SYSTEMS: A 10-point review of systems is performed and is negative except as above. PHYSICAL EXAMINATION: GENERAL: This is a well-developed, well-nourished man, resting comfortably in bed. VITAL SIGNS: Height 5 feet 7 inches, weight 179 pounds, temperature is 97.5, pulse is 87, blood pressure is 102/74. HEENT: Sclerae nonicteric. Pupils are equal and round bilaterally. NECK: Supple without adenopathy. CHEST: Diminished breath sounds over the left base, otherwise are clear with distant breath sounds. ABDOMEN: Soft and nontender. EXTREMITIES: No edema. VASCULAR: Palpable carotid, radial and femoral pulses bilaterally. LABORATORY DATA: Hemoglobin is 13.3, platelet count is 128,000. Creatinine is 0.82, potassium is 4.0. ASSESSMENT AND PLAN: This is a very pleasant 73-year-old gentleman, who has advanced stage adenocarcinoma of the lung with recurrent left malignant pleural effusion. I have discussed PleurX placement with him. He and his partner are confident, they can manage this at home. We discussed the drainage procedure and they are okay performing this at home. We will plan for placement in the morning. Job ID: [id number]
[2019-03-01] MEDS: HYDROcodone/Acetaminophen 10/325 mg Tablet PO PRN ×2 (06:01→15:52)
[2019-03-01] MEDS: Mometasone/Formoterol 120 PUFF INHALER INH SCH ×2 (06:36→18:32)
[2019-03-01] MEDS: Aspirin 81 mg Enteric Coated Tablet PO SCH (07:11)
[2019-03-01] MEDS: Enoxaparin Sodium 40 MG/0.4 ML SYRINGE SC SCH (07:12)
[2019-03-01] MEDS: Varenicline Tartrate 0.5 MG TAB PO SCH (07:36)
[2019-03-01] MEDS: predniSONE 20 MG TAB PO SCH (07:36)
[2019-03-01] MEDS ORDERED: Sodium Chloride 0.9% 10 ML ONE (10:25)
[2019-03-01] MEDS ORDERED: PROPOFOL 200 MG/20 ML VIAL ONE (10:50)
--- NOTE | 2019-03-01 11:53 | PDOC.PN ---
- Subjective Encounter Start Date: 03/01/19 Encounter Start Time: 08:00 Subjective: no sob, is npo for procedure this afternoon -: his girlfriend in room - Objective Resuscitation Status - Order Detail: 02/27/19 17:31 Resuscitation Status Routine Resuscitation Status: FULL: Full Resuscitation Discussed with: POA: ,Sindhu-girlfriend Additional comments: Not to resuscitate more than 2 times at a stretch. MAR Reviewed: Yes Vital Signs & Weight: Vital Signs (12 hours) Temp Pulse Resp BP Pulse Ox 03/01/19 07:39 97.7 F 89 20 105/75 94 L 03/01/19 06:34 107 H 18 96 03/01/19 01:22 97 03/01/19 00:44 104 H 20 94 L Weight Weight 169 lb 12.095 oz Result Diagrams: 02/28/19 05:22 02/28/19 05:23 Phys Exam - Physical Examination HEENT: PERRLA, moist MMs Neck: no JVD, supple Respiratory: no wheezing, no rales Cardiovascular: RRR, no significant murmur Gastrointestinal: soft, non-tender, positive bowel sounds Musculoskeletal: no edema, pulses present Neurological: non-focal, moves all 4 limbs Psychiatric: normal affect, A&O x 3 Dx/Plan (1) Recurrent left pleural effusion Code(s): J90 - PLEURAL EFFUSION, NOT ELSEWHERE CLASSIFIED Status: Acute Comment: sec to malignancy (2) Adenocarcinoma of lung, stage 4 Code(s): C34.90 - MALIGNANT NEOPLASM OF UNSP PART OF UNSP BRONCHUS OR LUNG Status: Chronic Qualifiers: Laterality: left Qualified Code(s): C34.92 - Malignant neoplasm of unspecified part of left bronchus or lung Comment: on Keytruda (3) Emphysema lung Code(s): J43.9 - EMPHYSEMA, UNSPECIFIED Status: Chronic (4) Tobacco abuse Code(s): Z72.0 - TOBACCO USE Status: Chronic (5) PTSD (post-traumatic stress disorder) Code(s): F43.10 - POST-TRAUMATIC STRESS DISORDER, UNSPECIFIED Status: Chronic (6) Dyslipidemia Code(s): E78.5 - HYPERLIPIDEMIA, UNSPECIFIED Status: Chronic - Plan for Pleuryx cath today -: girlfriend to learn how to use it prior to discharge -: continue nebs, dulera, prednisone, asp, lipitor, neurontin -: hemostable -: to amb as tolerated * . Review of Systems - Medications/Allergies Allergies/Adverse Reactions: Allergies Allergy/AdvReac Type Severity Reaction Status Date / Time No Known Allergies Allergy Verified 02/27/19 16:12 Medications: Current Medications Acetaminophen (Tylenol) 650 mg PO Q4H PRN PRN Reason: Headache/Fever/Mild Pain (1-3) Hydrocodone Bitart/Acetaminophen ([place] 10/325) 1 tab PO Q4H PRN PRN Reason: Moderate to Severe Pain (6-10) Last Admin: 03/01/19 06:01 Dose: 1 tab Albuterol/Ipratropium (Duoneb) 3 ml NEB [id number] [facility] Last Admin: 03/01/19 06:34 Dose: 3 ml Aspirin (Ecotrin) 81 mg PO DAILY [facility] Last Admin: 03/01/19 07:11 Dose: Not Given Atorvastatin Calcium (Lipitor) 20 mg PO HS [facility] Last Admin: 02/28/19 20:20 Dose: 20 mg Bisacodyl (Dulcolax) 10 mg [place] DAILYPRN PRN PRN Reason: Constipation Cefazolin Sodium (Ancef) 2 gm SLOW IVP Q8HR [facility] Enoxaparin Sodium (Lovenox) 40 mg SC 0900 [facility] Last Admin: 03/01/19 07:12 Dose: Not Given Gabapentin (Neurontin) 300 mg PO HS [facility] Last Admin: 02/28/19 20:20 Dose: 300 mg Guaifenesin/Dextromethorphan (Robitussin Dm) 15 ml PO Q4H PRN PRN Reason: Cough Mometasone Furoate/Formoterol Fumar (Dulera 100 Mcg/5 Mcg Inhaler) 2 puff INH BID-RT [facility] Last Admin: 03/01/19 06:36 Dose: 2 puff Nicotine (Nicoderm Patch) 21 mg TD Q24HR [facility] Last Admin: 02/28/19 18:07 Dose: Not Given Pantoprazole Sodium (Protonix) 40 mg PO DAILY [facility] Last Admin: 03/01/19 07:36 Dose: Not Given Prednisone (Prednisone) 5 mg PO DAILY [facility] Last Admin: 03/01/19 07:36 Dose: Not Given Senna/Docusate Sodium (Senokot S) 2 tab PO BIDPRN PRN PRN Reason: Constipation Varenicline (Chantix) 2 mg PO BID [facility] Last Admin: 03/01/19 07:36 Dose: Not Given Zolpidem Tartrate (Ambien) 5 mg PO HSPRN PRN PRN Reason: Insomnia Last Admin: 02/28/19 20:23 Dose: 5 mg
[2019-03-01] MEDS ORDERED: Lidocaine 1% (PF) 30 ML VIAL ONE (12:55)
[2019-03-01] MEDS ORDERED: Fentanyl 100 MCG/2 ML VIAL ONE ×3 (13:16→14:26)
[2019-03-01] MEDS ORDERED: Midazolam HCl 2 mg/2 ml Vial ONE (13:16)
[2019-03-01] MEDS ORDERED: Propofol 1,000 MG/100 ML VIAL IV ONE (13:19)
[2019-03-01] MEDS ORDERED: Ondansetron HCl/PF 4 MG/2 ML Vial IVP PRN (14:12)
[2019-03-01] MEDS: Nicotine 21 MG PATCH TD SCH (15:22)
[2019-03-01 15:24] VITALS: BP 102/76; TEMP 97.6
[2019-03-01] MEDS: CEFAZOLIN 1 GM VIAL SLOW IVP SCH ×2 (15:29→15:32)
--- NOTE | 2019-03-01 19:51 | OP ---
DATE OF PROCEDURE: 03/01/2019 PREOPERATIVE DIAGNOSIS: Recurrent malignant left pleural effusion. POSTOPERATIVE DIAGNOSIS: Recurrent malignant left pleural effusion. PROCEDURE PERFORMED: Left PleurX catheter placement. ANESTHESIA: 1% lidocaine for local with IV sedation. DESCRIPTION OF PROCEDURE: The patient was brought to the operating room and sedated. Left chest wall was prepped and draped in usual sterile fashion. 1% lidocaine was used to anesthetize the chest wall. The chest was accessed, and a guidewire placed. The catheter was tunneled from midclavicular line to the anterior axillary line and then passed over Peel-Away sheath into the chest. The catheter was aspirated, and 1600 mL total of bloody fluid was withdrawn. The patient tolerated the procedure well. Sterile dressing was applied. He was transferred to recovery room. Job ID: [id number]
--- NOTE | 2019-03-02 09:48 | DIS ---
DATE OF ADMISSION: 02/27/2019 DATE OF DISCHARGE: 03/01/2019 DISCHARGE DISPOSITION: Home. PRIMARY DISCHARGE DIAGNOSES: Recurrent left pleural effusion, status post PleurX catheter; adenocarcinoma of lung, stage IV, on Keytruda; emphysema of lung; tobacco abuse; post-traumatic stress disorder; and dyslipidemia. PROCEDURES DONE DURING HOSPITALIZATION: CT angio of chest done on the day of admission showed no evidence of pulmonary embolism. Worsening moderate left pleural effusion with persistent consolidation of left lower lobe and lingula. Stable left upper lobe spiculated pulmonary nodules suspicious for malignancy. 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 Stable multiple healing left-sided rib fractures. Enlarged lymph nodes of the left hilar region and mediastinum. He had PleurX catheter placed by Dr. Junior Servin on 03/01/2019. H and H 13 and 41, platelet count 128, MCV is 104. BUN 14, creatinine 0.8. BNP 13. Albumin 3.6. DISCHARGE MEDICATIONS: 1. Symbicort inhaler 2 puffs twice daily. 2. Vitamin D3 1000 units p.o. daily. 3. Gabapentin 300 mg p.o. at bedtime. 4. [place] p.r.n. for pain. 5. Protonix 40 mg p.o. daily. 6. Keytruda per Oncology advise. 7. Prednisone 5 mg daily. 8. Simvastatin 40 mg p.o. q.p.m. 9. Chantix as directed. 10. Zolpidem 5 mg p.o. at bedtime p.r.n. 11. DuoNeb q.6 hourly p.r.n. 12. Aspirin 81 mg p.o. daily. ALLERGIES: NO KNOWN DRUG ALLERGIES. INPATIENT CONSULTS: Dr. Carlson for Pulmonology and Dr. Servin for Cardiothoracic Surgery. DISCHARGE PLAN: The patient to follow up with his oncologist as advised. BRIEF COURSE DURING HOSPITALIZATION: The patient initially got admitted with complaints of shortness of breath on minimal exertion. He has known history of stage IV adenocarcinoma of left lung with recurrent pleural effusion on the left. He has had consultation with Dr. Carlson. The patient has had a PleurX catheter placed by Dr. Servin. Nearly, 1600 mL of bloody fluid was removed. He and his girlfriend have been taught how to use PleurX catheter prior to discharge. He is wanting to go home and will be shortly discharged. The patient has underlying emphysema and has steroid and oxygen-dependent COPD. Please see a [id number] documentation for the day of discharge on [employer]. Job ID: [id number]
== END 2019-03-01 18:57 | disposition home or self-care (01) | DRG 181 ==
LOC: ERS 10:36 → T4-A 14:27
PROVIDERS: ADMIT Family Medicine; ATTEND Family Medicine
PROC: 0W9B30Z Drainage of Left Pleural Cavity with Drainage Device, Percutaneous Approach (ICD-10-PCS; principal; 2019-03-01)
DX: C34.90 Malignant neoplasm of unspecified part of unspecified bronchus or lung (principal); J91.0 Malignant pleural effusion; J43.9 Emphysema, unspecified; M81.0 Age-related osteoporosis without current pathological fracture; E78.5 Hyperlipidemia, unspecified; G47.00 Insomnia, unspecified; F17.210 Nicotine dependence, cigarettes, uncomplicated; F43.10 Post-traumatic stress disorder, unspecified; Z79.899 Other long term (current) drug therapy; Z79.82 Long term (current) use of aspirin; Z79.52 Long term (current) use of systemic steroids
CPT/HCPCS: 36415; 71275; 80048; 80053; 82550; 82553; 82805; 83880; 84484; 85025; 93005; 94640; 96360; 96361; C1729; J0690; J2001; J2250; J2704; J3010; J7620; Q9966

== ENCOUNTER 2019-04-04 13:08 | Outpatient (CLI) | payer MEDICARE, BC ==
--- NOTE | 2019-04-04 13:47 | RAD ---
TWO VIEW CHEST: HISTORY: Malignant neoplasm of lung. COMPARISON: Chest film of 02/03/2019. FINDINGS: Bilateral pleural effusions, larger on the left. There is left basilar atelectasis and consolidation . A left chest tube overlies the left mid lung field. Interstitial thickening is seen in the mid and lower lung lopez bilaterally which is a stable findin g. The MediPort catheter is unchanged in position. Bilateral apical pleural thickening is again not ed. IMPRESSION: Bilateral effusions. The left basilar opacification has increased when compared to a prior exam of . Diffuse interstitial prominence is again noted. POS: [facility]
== END 2019-04-04 13:09 | disposition home or self-care (01) ==
LOC: RAD 13:08
PROVIDERS: ATTEND Thoracic Surgery (Cardiothoracic Vascular Surgery)
DX: C34.92 Malignant neoplasm of unspecified part of left bronchus or lung (principal); J90 Pleural effusion, not elsewhere classified; R91.8 Other nonspecific abnormal finding of lung field
CPT/HCPCS: 71046

== ENCOUNTER → 2019-04-11 | Day surgery (SDC) | payer MEDICARE, BC ==
[2019-04-08 11:44] VITALS: BMI 24.1
[~2019-04-11] MED LIST changes: +Bupivacaine HCl 0.5%/Epinephrine 1:200,000/PF 30 ml Vial ONE; +Fentanyl 100 MCG/2 ML VIAL ONE; -ISOVUE-370 76%-LOCM 1 ML ONE; +Midazolam HCl 2 mg/2 ml Vial ONE; +PROPOFOL 200 MG/20 ML VIAL ONE
--- NOTE | 2019-04-11 12:20 | OP ---
DATE OF PROCEDURE: 04/11/2019 PREOPERATIVE DIAGNOSIS: End of use of left PleurX catheter. POSTOPERATIVE DIAGNOSIS: End of use of left PleurX catheter. PROCEDURE PERFORMED: Removal under local and sedation. DRAINS: None. SPECIMENS: None. DESCRIPTION OF PROCEDURE: After consent was obtained, the patient was brought to the operating room and placed in supine position on the operating table. Appropriate central line and monitors were placed. IV sedation was begun. Left chest wall was prepped and draped in usual sterile fashion. The area around the exit site was anesthetized with 1% lidocaine. The cuff was carefully dissected free from the surrounding tissues and the catheter removed. Single skin stitch was placed. The patient tolerated the procedure well, was awakened and transferred to the recovery room in stable condition. He will be discharged to home later today. Job ID: [id number]
== END ==
LOC: SDC 07:05
PROVIDERS: ATTEND Thoracic Surgery (Cardiothoracic Vascular Surgery)
PROC: 0BP Respiratory System, Removal (ICD-10-PCS; principal; 2019-04-11)
DX: Z46.82 Encounter for fitting and adjustment of non-vascular catheter (principal); C34.92 Malignant neoplasm of unspecified part of left bronchus or lung; J91.0 Malignant pleural effusion; F17.200 Nicotine dependence, unspecified, uncomplicated; J44.9 Chronic obstructive pulmonary disease, unspecified; M81.0 Age-related osteoporosis without current pathological fracture; E78.5 Hyperlipidemia, unspecified; G47.00 Insomnia, unspecified; E78.2 Mixed hyperlipidemia; I10 Essential (primary) hypertension; Z79.899 Other long term (current) drug therapy
CPT/HCPCS: J0670; J0690; J2250; J2704; J3010

== ENCOUNTER 2019-04-27 13:17 | Emergency (ER) | payer MEDICARE, BC ==
[~2019-04-27 13:17] MED LIST changes: -Bupivacaine HCl 0.5%/Epinephrine 1:200,000/PF 30 ml Vial ONE; -Fentanyl 100 MCG/2 ML VIAL ONE; +ISOVUE-370 76%-LOCM 1 ML ONE; -Midazolam HCl 2 mg/2 ml Vial ONE; -PROPOFOL 200 MG/20 ML VIAL ONE
[2019-04-27 14:18] LABS: #Lymphocytes 0.3 thou/uL (1.20-3.40); #Monocytes 0.2 thou/uL (0.11-0.59); #Neutrophils 3.8 thou/uL (1.40-6.50); %Basophils 0.1 % (0.0-1.0); %Eosinophils 0.7 % (0.0-10.0); %Neutrophils 88.3 % (42.0-75.0); Hemoglobin 8.8 g/dL (14.0-18.0); Mean Corpuscular HGB CONC 34.2 g/dL (32.0-36.0); Mean Corpuscular Hemoglobin 35.1 pg (27.0-31.0); Mean Platelet Volume 8.3 fL (7.4-10.4); Platelet Count 119 thou/uL (130-400); RBC Distribution Width 14.6 % (11.5-14.5); Red Blood Cell (RBC) Count 2.51 mill/uL (4.70-6.10); White Blood Cell (WBC) Count 4.3 thou/uL (4.8-10.8)
[2019-04-27 14:32] LABS: ALT (SGPT) 20 U/L (8-55); AST (SGOT) 19 U/L (5-34); Albumin 3.6 g/dL (3.4-4.8); Alkaline Phosphatase 79 U/L (40-150); Anion Gap 9 mmol/L (10-20); BUN (Urea Nitrogen) 19 mg/dL (8.4-25.7); Bilirubin, Total 0.7 mg/dL (0.2-1.2); Calc. Creatinine Clearance 0 mL/min (70-130); Carbon Dioxide 27 mmol/L (23-31); Chloride 100 mmol/L (98-107); Estimated GFR-MDRD Greater than 90; Globulin 2.5 g/dL (2.4-3.5); Glucose 89 mg/dL (83-110); Potassium 4.2 mmol/L (3.5-5.1); Protein, Total 6.1 g/dL (5.8-8.1); Sodium 132 mmol/L (136-145)
--- NOTE | 2019-04-27 14:44 | RAD ---
1 VIEW CHEST: Date: 04/27/19 COMPARISON: 04/04/19. HISTORY: Pleural effusion. Stage IV lung cancer. FINDINGS: Stable right-sided MediPort catheter. Atherosclerosis of aorta. Limited evaluation of the cardiac catherine houette due to bibasilar/perihilar interstitial and alveolar opacities. The degree of opacification h as not significantly changed. Stable left-sided effusion. No pneumothorax. Vertebroplasty in the mid thoracic spine is noted. IMPRESSION: No significant change. POS: [facility]
--- NOTE | 2019-04-27 15:16 | CT ---
CTA CHEST WITH CONTRAST: 04/27/19 Axial tomograms are obtained with multiplanar reconstruction following angio protocol with multiplana r reconstruction and 3D postprocessing. INDICATIONS: Chest pain, dyspnea. History of lung cancer. Patient on chemotherapy. Comparison made to recent CTA chest, 02/27/19. FINDINGS: Pulmonary arteries show adequate enhancement. No evidence of pulmonary embolus identified. Thoracic a jazzy is opacified. No evidence of dissection. Review of the lung lopez again show chronic lung changes with diffuse emphysematous changes bilatera lly. Spiculated mass adjacent to the mediastinum anterior left upper lobe is unchanged. Small bilater al pleural effusions are seen. There has been reduction in the left effusion when compared to 02/27/19 . Slight increase in the right effusion since that exam. Nonspecific mediastinal and hilar adenopathy appears stable. Vertebroplasty changes in the mid thoracic vertebrae again noted. Numerous healing posterior rib frac tures on the left again noted. There is an expansile sclerotic lesion involving the posterior left 11 th rib which appears stable. IMPRESSION: 1. No evidence of pulmonary embolus. 2. Small bilateral effusions and bibasilar atelectasis. 3. Mediastinal and hilar adenopathy are stable. 4. Rib lesions are stable. 5. The spiculated mass adjacent to the mediastinum anteriorly on the left is stable in appearanc e. POS: [facility]
[2019-04-27] MEDS ORDERED: Ketorolac Tromethamine 60 MG/2 ML VIAL ONE (15:17)
--- NOTE | 2019-04-30 13:27 | EKG ---
Test Reason : Blood Pressure : / mmHG Vent. Rate : 086 BPM Atrial Rate : 086 BPM P-R Int : 142 ms QRS Dur : 088 ms QT Int : 350 ms P-R-T Axes : 036 024 011 degrees QTc Int : 418 ms Normal sinus rhythm Normal ECG Confirmed by JEWELL LIM, ALKA Leach ([id number]), assignment desk editor ALLISON VELAZQUEZ ([id number]) on 04/30/2019 1:27:14 PM Referred By: Confirmed By:ALKA CORCORAN MD
== END 2019-04-27 15:30 | disposition home or self-care (01) ==
LOC: ERS 13:17
DX: J90 Pleural effusion, not elsewhere classified (principal); E78.5 Hyperlipidemia, unspecified; E78.00 Pure hypercholesterolemia, unspecified; J43.9 Emphysema, unspecified; F43.10 Post-traumatic stress disorder, unspecified; Z87.891 Personal history of nicotine dependence; Z79.82 Long term (current) use of aspirin; Z79.51 Long term (current) use of inhaled steroids; Z79.52 Long term (current) use of systemic steroids; Z85.118 Personal history of other malignant neoplasm of bronchus and lung
CPT/HCPCS: 71045; 71275; 80053; 83880; 84484; 85025; 93005; 96374; J1642; J1885; Q9966

== ENCOUNTER 2019-06-01 08:16 | Day surgery (SDC) | payer MEDICARE, BC ==
[2019-06-01] MEDS ORDERED: Acetaminophen 500 MG TAB PO SCH (10:00)
[2019-06-01] MEDS ORDERED: diphenhydrAMINE 25 MG CAP PO SCH (10:00)
[2019-06-01] MEDS ORDERED: Sodium Chloride 0.9% 40 ML ONE (12:31)
[2019-06-01 15:25] VITALS: BP 140/88; TEMP 98.5
== END 2019-06-01 15:25 | disposition home or self-care (01) ==
LOC: ONC/OP 08:16
PROVIDERS: ATTEND Internal Medicine Hematology & Oncology
PROC: 30233N1 Transfusion of Nonautologous Red Blood Cells into Peripheral Vein, Percutaneous Approach (ICD-10-PCS; principal; 2019-06-01)
DX: D64.9 Anemia, unspecified (principal); D69.6 Thrombocytopenia, unspecified
CPT/HCPCS: 36415; 36430; 86850; 86900; 86901; J1642; P9016

== ENCOUNTER 2019-06-13 14:15 | Inpatient (IN) | payer MEDICARE, BC ==
--- NOTE | 2019-06-13 15:07 | RAD ---
CHEST: FINDINGS: Mild cardiomegaly is stable. The lungs again show diffuse parenchymal density with stranding and inte rstitial prominence in both lung bases. There are bilateral effusions again noted. Mediport catheter is unchanged. IMPRESSION: Chronic lung parenchymal changes in the lung bases have been previously described on recent CT chest of 04/27/2019. No acute interval change noted. Bilateral pleural effusions again noted. POS: [facility]
[2019-06-13 15:41] LABS: Mean Corpuscular HGB CONC 31.4 g/dL (32.0-36.0); Mean Corpuscular Hemoglobin 33.4 pg (27.0-31.0); Mean Platelet Volume 7.7 fL (7.4-10.4); Platelet Count 176 thou/uL (130-400); RBC Distribution Width 17.9 % (11.5-14.5); Red Blood Cell (RBC) Count 3.28 mill/uL (4.70-6.10); White Blood Cell (WBC) Count 13.8 thou/uL (4.8-10.8)
[2019-06-13 16:01] LABS: ALT (SGPT) 67 U/L (8-55); AST (SGOT) 36 U/L (5-34); Albumin 3.3 g/dL (3.4-4.8); Alkaline Phosphatase 101 U/L (40-110); Anion Gap 12 mmol/L (10-20); BUN (Urea Nitrogen) 18 mg/dL (8.4-25.7); Band 24 % (5-11); Bilirubin, Total 0.4 mg/dL (0.2-1.2); Calc. Creatinine Clearance 0 mL/min (70-130); Calcium 9.2 mg/dL (7.8-10.44); Carbon Dioxide 28 mmol/L (23-31); Chloride 105 mmol/L (98-107); Estimated GFR-MDRD Greater than 90; Glucose 141 mg/dL (83-110); Hypochromia SLIGHT = 6-15 cells (100X) (0-5/hpf); Lymphocytes 1 % (21-51); MDiff Complete? YES; Macrocytosis SLIGHT = 6-15 cells (100X) (0-5/hpf); Magnesium 1.8 mg/dL (1.6-2.6); Monocytes 7 % (0-10); Neutrophil 64 % (42-75); Ovalocytes SLIGHT = 2-5 cells (100X) (0-1/hpf); Platelet Morphology Comment Appears Adequate; Polychromasia SLIGHT = 2-3 cells (100X) (0-2/hpf); Potassium 4.1 mmol/L (3.5-5.1); Protein, Total 6.3 g/dL (5.8-8.1); Reactive Lymphocytes 4 % (0-10); Schistocytes SLIGHT = 2-5 cells (100X) (0-1/hpf); Sodium 141 mmol/L (136-145); Tear Drops SLIGHT = 2-5 cells (100X) (0-1/hpf)
[2019-06-13] MEDS ORDERED: Albuterol Sulfate 2.5 mg/0.5 ml Neb ONE (16:15)
[2019-06-13] MEDS ORDERED: Magnesium 2 GM/50 ML BAG (IN WATER) ONE (16:19)
[2019-06-13] MEDS ORDERED: methylPREDNISolone Sod Succ/PF 125 MG/2 ML VIAL ONE (16:19)
[2019-06-13] MEDS ORDERED: Bacteriostatic Water 30 ML VIAL FS PRN (21:35)
[2019-06-13] MEDS ORDERED: Ondansetron PF 4 MG/2 ML Vial IVP PRN ×2 (21:36→23:25)
[2019-06-13] MEDS ORDERED: Acetaminophen 325 MG TAB PO PRN ×2 (21:36→23:25)
[2019-06-13] MEDS ORDERED: Ondansetron ODT 4 MG TAB SL PRN (21:36)
[2019-06-13] MEDS ORDERED: Sodium Chloride 0.9% 1,000 ML IV SCH (21:45)
[2019-06-13 21:55] VITALS: BMI 25.4
[2019-06-13] MEDS ORDERED: Prochlorperazine Maleate 5 MG TAB PO PRN (23:08)
[2019-06-13] MEDS ORDERED: Acetaminophen 500 MG TAB PO PRN (23:10)
[2019-06-13] MEDS ORDERED: PROVENTIL INHALER 6.7 G (200 INHALATIONS) INH PRN (23:10)
[2019-06-13] MEDS ORDERED: Ibuprofen 800 MG TAB PO PRN (23:12)
[2019-06-13] MEDS ORDERED: HYDROcodone/Acetaminophen 10/325 mg Tablet PO PRN (23:25)
[2019-06-13] MEDS ORDERED: Ondansetron ODT 4 MG TAB PO PRN (23:25)
[2019-06-13] MEDS ORDERED: Benzonatate 100 MG CAP PO PRN (23:25)
[2019-06-13] MEDS ORDERED: Docusate 100 MG CAP PO SCH (23:45)
[2019-06-13] MEDS ORDERED: Zolpidem Tartrate 5 MG TAB PO SCH (23:45)
[2019-06-13] MEDS ORDERED: Gabapentin 300 MG CAP PO SCH (23:45)
[2019-06-13] MEDS ORDERED: Ibuprofen 800 MG TAB PO SCH (23:45)
[2019-06-13] MEDS ORDERED: Senokot 8.6 MG TAB PO SCH (23:45)
--- NOTE | 2019-06-14 02:06 | HP ---
PRIMARY CARE PHYSICIAN: Dr. Salinas. CHIEF COMPLAINT: Shortness of breath. HISTORY OF PRESENT ILLNESS: Mr. Parker is a pleasant 73-year-old gentleman who has a history of stage IV adenocarcinoma of the lungs. He also has a history of COPD and he also has a history of malignant pleural effusions. The patient had a PleurX catheter in place, which he had removed by his request back in March. He says that in the last couple of weeks he has been having increasing cough as well as shortness of breath. He says he has been unable to bring anything up. He denies any fevers or chills or any nausea, vomiting. He does have a chronic pain in the left side of his chest, which he says he has had ever since all of this started happening. He says that the shortness of breath has been much worse. However, he says that he is unable to hardly do anything in the house, not even sit and use a urinal without being extremely short of breath. For this reason, he came to the ER for evaluation. He was evaluated and found to have x-ray findings consistent with bilateral pleural effusions as well as some chronic changes in the lungs and he is being admitted for probable COPD exacerbation. REVIEW OF SYSTEMS: All systems were reviewed and are negative except for that mentioned in history of present illness. PAST MEDICAL HISTORY: 1. Significant for chronic respiratory failure due to COPD with hypoxemia. 2. Stage IV adenocarcinoma. 3. PTSD. 4. History of chronic back pain. PAST SURGICAL HISTORY: He has had back surgery as well as a PleurX catheter placed and then removed. ALLERGIES: NO KNOWN DRUG ALLERGIES. SOCIAL HISTORY: He is a former smoker. Denies any alcohol use. He has a significant other, Janice Smith who is also his medical power of research associate quality control qc. He would like to be a full code. FAMILY HISTORY: Significant for father who had esophageal cancer. CURRENT MEDICATIONS: Include: 1. Ambien 10 mg at bedtime. 2. Senokot 2 mg at bedtime. 3. Compazine 10 mg as needed for nausea and vomiting. 4. Prednisone 10 mg daily. 5. Protonix 40 mg daily. 6. Zofran 8 mg q.8h p.r.n. 7. DuoNebs q.i.d. 8. Ibuprofen 800 mg twice daily. 9. [place] 10/325 q.6 as needed. 10. Gabapentin 300 mg twice daily. 11. Colace 100 mg twice daily. 12. Tylenol Extra Strength as needed. PHYSICAL EXAMINATION: GENERAL: He is alert and oriented. He appears to be in some mild distress due to dyspnea. VITAL SIGNS: His blood pressure was 166/98, heart rate is 110, respiratory rate of 22, and O2 saturation is 93% on 4 L. HEENT: Pupils are equal, round, and reactive to light. Extraocular muscles are intact. His sclerae anicteric. Throat, no erythema, no exudates. NECK: No adenopathy, no bruits. LUNGS: He has bilateral wheezing as well as some rhonchi. Decreased breath sounds at the bases. CARDIOVASCULAR: He has a normal S1 and S2. There is no S3 or S4. No murmurs, clicks, or rubs. ABDOMEN: Soft, it is nontender and nondistended. Positive for bowel sounds. No rebound. No guarding. No organomegaly. EXTREMITIES: He has 1 to 2+ edema. No calf tenderness. No joint effusions. NEUROLOGIC: The exam is nonfocal. SKIN AND INTEGUMENT: No skin changes, no rash. LABORATORY DATA: His sodium is 141, potassium 4.1, chloride is 105, CO2 is 28, BUN of 18, creatinine 0.81, glucose is 141. His white blood cell count is 13.8, hemoglobin 11, hematocrit is 34.9, and platelet count is 176. IMAGING: His chest x-ray shows some chronic parenchymal changes as well as bilateral pleural effusions, which are moderate in size. ASSESSMENT: This is a pleasant 73-year-old gentleman admitted with [id number] respiratory failure with hypoxemia, likely due to chronic obstructive pulmonary exacerbation. He will be admitted to the telemetry, started on empiric antibiotics, steroids, DuoNebs and consider pulmonary evaluation. Reassess him again in the a.m. Place him on deep venous thrombosis and gastrointestinal prophylaxis. Job ID: [id number]
[2019-06-14] MEDS ORDERED: methylPREDNISolone Sod Succ 40 MG VIAL IVP SCH (04:00)
[2019-06-14 04:08] LABS: #Lymphocytes 0.3 thou/uL (1.20-3.40); #Monocytes 0.7 thou/uL (0.11-0.59); #Neutrophils 8.5 thou/uL (1.40-6.50); %Eosinophils 0.2 % (0.0-10.0); %Lymphocytes 2.9 % (21.0-51.0); %Monocytes 6.9 % (0.0-10.0); Hemoglobin 10.5 g/dL (14.0-18.0); Mean Corpuscular HGB CONC 30.8 g/dL (32.0-36.0); Mean Corpuscular Hemoglobin 32.5 pg (27.0-31.0); Mean Platelet Volume 7.7 fL (7.4-10.4); Platelet Count 180 thou/uL (130-400); RBC Distribution Width 17.6 % (11.5-14.5); Red Blood Cell (RBC) Count 3.23 mill/uL (4.70-6.10); White Blood Cell (WBC) Count 9.5 thou/uL (4.8-10.8)
[2019-06-14 04:27] LABS: Anion Gap 14 mmol/L (10-20); BUN (Urea Nitrogen) 20 mg/dL (8.4-25.7); Calc. Creatinine Clearance 94 mL/min (70-130); Calcium 8.8 mg/dL (7.8-10.44); Carbon Dioxide 25 mmol/L (23-31); Chloride 106 mmol/L (98-107); Estimated GFR-MDRD Greater than 90; Glucose 135 mg/dL (83-110); Potassium 4.2 mmol/L (3.5-5.1); Sodium 141 mmol/L (136-145)
[2019-06-14] MEDS: methylPREDNISolone Sod Succ 40 MG VIAL IVP SCH ×2 (05:35→17:27)
[2019-06-14] MEDS ORDERED: HYDROcodone/Acetaminophen 10/325 mg Tablet PO SCH ×2 (09:00→21:00)
[2019-06-14] MEDS ORDERED: predniSONE 20 MG TAB PO SCH ×2 (09:00)
[2019-06-14] MEDS ORDERED: FLU VACC TS2019-20(65YR UP)/PF 180 MCG/0.5 ML SYRINGE IM ONE (09:00)
[2019-06-14] MEDS ORDERED: Docusate 100 MG CAP PO SCH (09:00)
[2019-06-14] MEDS ORDERED: Famotidine 20 MG TAB PO SCH (09:00)
[2019-06-14] MEDS: Prenatal Vitamin 1 TAB PO SCH (09:53)
[2019-06-14] MEDS: Docusate 100 MG CAP PO SCH ×2 (09:53→21:31)
[2019-06-14] MEDS: Gabapentin 300 MG CAP PO SCH ×2 (09:53→21:31)
[2019-06-14] MEDS: Enoxaparin Sodium 40 MG/0.4 ML SYRINGE SC SCH (09:53)
[2019-06-14] MEDS: Ibuprofen 800 MG TAB PO SCH ×2 (09:53→21:30)
[2019-06-14 12:02] LABS: Troponin I Less than 0.010 ng/mL (< 0.028)
[2019-06-14] MEDS ORDERED: guaiFENesin ER 600 MG TAB PO SCH (12:45)
[2019-06-14] MEDS ORDERED: Furosemide 40 MG/4 ML VIAL SLOW IVP SCH (12:45)
--- NOTE | 2019-06-14 13:18 | CON ---
DATE OF CONSULTATION: 06/14/2019 SERVICE: Pulmonary Medicine. REASON FOR CONSULTATION: COPD exacerbation. HISTORY OF PRESENT ILLNESS: The patient is a 73-year-old white male with past medical history significant for stage 4 adenocarcinoma of the lung, which was diagnosed about a year and a half ago. He originally responded nicely to the immunotherapy, but he subsequently progressed on that. He has undergone three rounds of chemotherapy. His most recent round was supposed to be today, but he started having increasing shortness of breath and sputum production. Unfortunately, he has not been able to liberate the sputum that he feels was down in his chest , and he came in with increasing dyspnea on exertion. On a good day, he can typically get from his chair to the bathroom. When he gets there, he has to rest for 5 to 10 minutes to catch his breath. He can then get up from that location and go back to his recliner or to the table in the kitchen before he has to rest there for 5 or 10 minutes. This is his usual state of health. On top of that, he had a slow progression over the past 3 days to the point, where he could not even get up anymore. He presented to the Emergency Department. Since he has been in the hospital, he has received steroids, antibiotics, and nebulized medications, and his breathing seems to be improving. He denies any current sick contacts or night sweats. He knows he has sputum that is producing, but he cannot characterize it because he cannot get it out. PAST MEDICAL HISTORY: 1. COPD. 2. Adenocarcinoma of the lung, stage 4. 3. Chronic hypoxic respiratory failure. 4. Chronic back pain. 5. PTSD. PAST SURGICAL HISTORY: PleurX catheter placement with subsequent removal. ALLERGIES: NO KNOWN DRUG ALLERGIES. MEDICATIONS: List of the patient's inpatient medications were reviewed. No specific updates were made at this time. SOCIAL HISTORY: He has a remote history of smoking, but quit a couple years ago. He denies any alcohol or illicit drug use. He has no exposure to chemicals, dust, asbestos, or tuberculosis. 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 FAMILY HISTORY: Noncontributory. REVIEW OF SYSTEMS: General, head, eyes, ears, nose, throat, cardiovascular, respiratory, GI, , musculoskeletal, neurologic, and skin are negative except as mentioned in the HPI PHYSICAL EXAMINATION: VITAL SIGNS: Afebrile, pulse 100, blood pressure 133/81, respirations 18, and saturation 96% on 4 L nasal cannula. GENERAL: The patient is awake and alert, in no apparent distress. LUNGS: Reduced air entry. There is crackles present bilaterally. There is a prolonged expiratory phase, but I do not hear a lot of wheezing. HEART: Normal rate. Regular. ABDOMEN: Soft, nontender, and nondistended. Bowel sounds are positive. MUSCULOSKELETAL: No cyanosis or clubbing. There is trace 1+ pitting in the bilateral lower extremities. NEUROLOGIC: Grossly nonfocal. LABORATORY DATA: WBC 9.5, hemoglobin 10.5 and downtrending, and platelets 180, 000. Basic metabolic profile is otherwise unremarkable. There is slight elevation to the AST and ALT. Troponin is negative x1 and BNP is essentially unremarkable. Blood culture x1 is negative. IMAGING: Chest x-ray demonstrates no acute cardiopulmonary abnormality. Chronic changes are detailed by radiology report. I certainly do not see any obvious acute consolidating changes. Small effusions are present bilaterally. ASSESSMENT: 1. Acute on chronic hypoxic respiratory failure. 2. Chronic obstructive pulmonary disease with acute exacerbation. 3. Adenocarcinoma of lung, stage 4 with history of PleurX catheter on the left, status post removal. 4. Deconditioning. 5. Anemia, macrocytic, relatively new onset. DISCUSSION AND PLAN: I will check a B12 and folate to make certain that these levels are adequate. If not, replacement therapy should be considered. We will also get a peripheral smear. I will give him a 1 time dose of Lasix and introduce an acapella valve to see if this helps him liberate sputum. We will continue antibiotics, nebulized medications, and steroids. Other supportive care will be continued. We will try to focus on mobilization efforts. Dr. Carlson has a well established relationship with Mr. Parker and will assume care in the morning. 70 minutes have been devoted to this patient in various activities. I personally reviewed all imaging studies and laboratory data noted within this document. For fifty percent of this time, I was interacting with the patient at the bedside or coordinating care with the care team. For the remainder of the time I was immediately available to the patient in the hospital unit. Job ID: [id number] [facility]
--- NOTE | 2019-06-14 17:37 | CON ---
DATE OF CONSULTATION: REASON FOR CONSULT: Lung cancer. HISTORY OF PRESENT ILLNESS: Mr. Parker is a very pleasant 73-year-old gentleman, who has stage IV adenocarcinoma of the lungs, COPD, and history of malignant pleural effusions with PleurX catheter placement. He initially was on immunotherapy and recently completed four cycles of carboplatin and Alimta. He was due for maintenance Ellipta today. He began to have worsening shortness of breath and cough, presented to the emergency room and was diagnosed with possible pneumonia, started on antibiotics. Dr. Starr has seen the patient and is managing his lung issues. PAST MEDICAL HISTORY: 1. Stage IV lung cancer. 2. COPD. 3. Hepatitis. PAST SURGICAL HISTORY: MediPort placement. ALLERGIES: NO KNOWN DRUG ALLERGIES. HOME MEDICATIONS: 1. Prednisone. 2. Tylenol. 3. Albuterol. 4. Gabapentin. 5. Hydrocodone. 6. Ibuprofen. 7. Oxygen. 8. Prilosec. 9. Zolpidem. FAMILY HISTORY: Noncontributory. SOCIAL HISTORY: . Has 2 children. Lives with his spouse. Discontinued alcohol in February of 2019. No illicit drug use. 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 REVIEW OF SYSTEMS: Positive for shortness of breath and cough. Otherwise negative. PHYSICAL EXAMINATION: VITAL SIGNS: Temperature 98.2, pulse is 100, respiratory rate 18, blood pressure is 133/81. He is 97% on 4 L. GENERAL: Chronically ill-appearing male, in no acute distress. HEENT: Normocephalic and atraumatic. Pupils are equal and reactive to light. NECK: Supple. CV: Regular rate and rhythm. He is tachycardic. LUNGS: Diminished throughout. ABDOMEN: Soft. EXTREMITIES: He has 1+ bilateral lower extremities. SKIN: No rash. HEMATOLOGICAL: No petechiae or purpura. NEUROLOGICAL: Nonfocal. PERTINENT LABS AND X-RAYS: Current WBCs are 9.5, hemoglobin 10.5, hematocrit 34.0, platelet count is 180,000, 90% neutrophils, 3% lymphocytes. Sodium is 141, potassium 4.2, chloride is 106, CO2 is 25, BUN is 20, creatinine 0.71, lactic acid is 2, calcium 8.8, magnesium 1.8. Bilirubin 0.4, AST is 36, ALT 67, alkaline phosphatase is 101. Troponin is negative. Serum total protein is 6.3, albumin 3.3, globulin 3.0. ASSESSMENT: 1. Stage IV lung cancer. 2. [id number] respiratory distress possibly due to chronic obstructive pulmonary disease exacerbation. DISCUSSION: The patient is on empiric antibiotics. Pulmonary has seen the patient and has started him on steroids and DuoNeb. He has also received a dose of Lasix. His chemotherapy will be postponed until next week. His anemia is stable. No further recommendations at this time. We will follow along with his hospital course. Job ID: [id number]
[2019-06-14] MEDS ORDERED: Senokot 8.6 MG TAB PO SCH (21:00)
[2019-06-14] MEDS ORDERED: Zolpidem Tartrate 5 MG TAB PO SCH (21:00)
[2019-06-14] MEDS: guaiFENesin ER 600 MG TAB PO SCH (21:30)
[2019-06-14] MEDS: Senokot 8.6 MG TAB PO SCH (21:31)
[2019-06-14] MEDS: Zolpidem Tartrate 5 MG TAB PO SCH (21:35)
--- NOTE | 2019-06-14 23:58 | PDOC.HOSPP ---
- Subjective Encounter Date: 06/14/19 Encounter Time: 22:00 Subjective: The patient states that he is still very short of breath, wants to be able to go to the bathroom without being in terror. Also has trouble showering due to dyspnea. Has productive cough but can't get phlegm out. He states he had an ECHO with fur trimmer last week and was told his heart was "strong" - Objective Vital Signs & Weight: Vital Signs (12 hours) Temp Pulse Resp BP BP Pulse Ox 06/14/19 22:28 103 H 18 94 L 06/14/19 20:15 95 06/14/19 19:25 97.7 F 100 20 155/87 H 95 06/14/19 18:12 99 18 99 06/14/19 16:31 98.2 F 92 20 130/83 98 06/14/19 14:11 100 18 97 06/14/19 12:12 98.2 F 100 18 133/81 96 Weight Weight 162 lb 4.8 oz I&O: 06/13/19 06/14/19 06/15/19 06:59 06:59 06:59 Intake Total 480 1762 Output Total 200 1400 Balance 280 362 Result Diagrams: 06/14/19 03:55 06/14/19 03:55 Hospitalist ROS - Review of Systems Constitutional: denies: fever, chills Respiratory: reports: cough - Medication Medications: Active Medications Generic Name Dose Route Start Last Admin Trade Name Freq PRN Reason Stop Dose Admin Albuterol/Ipratropium 3 ml 06/14/19 06:30 06/14/19 22:28 Duoneb NEB 3 ml [id number] TORIE Administration Docusate Sodium 100 mg 06/14/19 09:00 06/14/19 21:31 Colace PO 100 mg BID TORIE Administration Enoxaparin Sodium 40 mg 06/14/19 09:00 06/14/19 09:53 Lovenox SC 40 mg 0900 TORIE Administration Gabapentin 300 mg 06/14/19 09:00 06/14/19 21:31 Neurontin PO 300 mg BID TORIE Administration Guaifenesin 1,200 mg 06/14/19 21:00 06/14/19 21:30 Mucinex PO 1,200 mg Q12HR TORIE Administration Levofloxacin 500 mg/ Device 100 mls @ 100 mls/hr 06/14/19 16:30 06/14/19 16: 14 IVPB 100 mls 1630 TORIE Administration Ibuprofen 800 mg 06/14/19 09:00 06/14/19 21:30 Motrin PO 800 mg BID TORIE Administration Methylprednisolone Sodium Succinate 40 mg 06/14/19 06:00 06/14/19 17:27 Solu-Medrol IVP 40 mg 0600,1800 TORIE Administration Multivit/Folic Acid/Iron 1 tab 06/14/19 09:00 06/14/19 09:53 Vitamin PO 1 tab DAILY TORIE Administration Senna 2 tab 06/14/19 21:00 06/14/19 21:31 Senokot PO 2 tab HS TORIE Administration Zolpidem Tartrate 10 mg 06/14/19 21:00 06/14/19 21:35 Ambien PO 10 mg HS TORIE Administration - Exam General Appearance: NAD, awake alert Eye: PERRL, anicteric sclera ENT: normocephalic atraumatic, no oropharyngeal lesions, dry oral mucosa Neck: supple, symmetric, no JVD, no thyromegaly Heart: RRR, no murmur, no gallops, no rubs Respiratory: CTAB, no wheezes, no rales, no ronchi Gastrointestinal: soft, non-tender, non-distended, normal bowel sounds Extremities: no cyanosis, no clubbing, no edema Skin: normal turgor, no lesions, no rashes Neurological: cranial nerve grossly intact, normal sensation to touch, no focal deficits, no new deficit Musculoskeletal: normal tone, normal strength, no muscle wasting Psychiatric: normal affect, normal behavior, A&O x 3, oriented to person Hosp A/P - Plan This is a 73 year old male with past medical history of emphysema, lung cancer with history of malignant pleural effusion who presented to ER with increasing shortness of breath Acute COPD exacerbation Chronic respiratory failure from emphysema - continue IV steroids q12 hours, levaquin, breathing treatments, mucinex - chest X ray showed no pneumonia Leukocytosis - WBC went from 13 to 9.5 . Chest X ray shows bilateral pleural effusions History of lung cancer with malignant pleural effusions - stopped pleurex catheter per patient - outpatient follow up of lung cancer MAcrocytic anemia - Hb 10/34. Will Transaminitis - AST 36,. ALT 67. Will recheck tomorrow GERD - PPI
[2019-06-15] MEDS ORDERED: methylPREDNISolone Sod Succ 40 MG VIAL IVP SCH (04:00)
[2019-06-15] MEDS: methylPREDNISolone Sod Succ 40 MG VIAL IVP SCH ×2 (05:58→17:07)
[2019-06-15 06:27] LABS: Band 2 % (5-11); Hemoglobin 10.3 g/dL (14.0-18.0); Lymphocytes 3 % (21-51); MDiff Complete? YES; Macrocytosis SLIGHT = 6-15 cells (100X) (0-5/hpf); Mean Corpuscular HGB CONC 32.4 g/dL (32.0-36.0); Mean Corpuscular Hemoglobin 33.8 pg (27.0-31.0); Mean Platelet Volume 7.6 fL (7.4-10.4); Monocytes 12 % (0-10); Neutrophil 83 % (42-75); Platelet Count 186 thou/uL (130-400); Platelet Morphology Comment Appears Adequate; RBC Distribution Width 17.9 % (11.5-14.5); Red Blood Cell (RBC) Count 3.03 mill/uL (4.70-6.10); Schistocytes SLIGHT = 2-5 cells (100X) (0-1/hpf); White Blood Cell (WBC) Count 12.7 thou/uL (4.8-10.8)
[2019-06-15] MEDS: Ibuprofen 800 MG TAB PO SCH ×2 (08:38→20:45)
[2019-06-15] MEDS: Prenatal Vitamin 1 TAB PO SCH (08:38)
[2019-06-15] MEDS: Docusate 100 MG CAP PO SCH ×2 (08:38→20:45)
[2019-06-15] MEDS: Enoxaparin Sodium 40 MG/0.4 ML SYRINGE SC SCH (08:38)
[2019-06-15] MEDS: Gabapentin 300 MG CAP PO SCH ×2 (08:38→20:46)
[2019-06-15] MEDS: guaiFENesin ER 600 MG TAB PO SCH ×2 (08:38→20:44)
--- NOTE | 2019-06-15 11:41 | PRG ---
DATE OF SERVICE: 06/15/2019 SUBJECTIVE: He is in good spirits. He feels better. He is able to walk around the room without much difficulty. OBJECTIVE: VITAL SIGNS: His temperature 97.6, pulse 92, respirations 20, O2 saturation 96% on 4 L, and blood pressure 158/94. HEENT: Unremarkable. NECK: No adenopathy or JVD. LUNGS: No wheezing. He has decreased breath sounds in the left base. CARDIAC: S1 and S2. Regular. ABDOMEN: Soft. EXTREMITIES: No edema. LABORATORY DATA: White blood cell count 12.7, hematocrit 31.7, and platelet count 186. Sodium 141, potassium 4.2, BUN 20, creatinine 0.7, and glucose 135. ASSESSMENT: 1. Chronic obstructive pulmonary disease with exacerbation. 2. Lung cancer, stage 4. 3. Acute hypoxic respiratory failure secondary to chronic obstructive pulmonary disease exacerbation. PLAN: He is improving on his current medication regimen. I think by tomorrow, he may be safe to go home. For the time being, continuing steroids, nebulization treatments, and antibiotics. Job ID: [id number]
--- NOTE | 2019-06-15 16:45 | PDOC.MOPN ---
Interval History: breathing improved today - Vital Signs Vital Signs: Vital Signs (12 hours) Temp Pulse Pulse Pulse Resp BP BP 06/15/19 15:28 98.5 F 100 20 06/15/19 14:30 109 H 114 H 133/83 154/85 H 06/15/19 13:58 110 H 18 06/15/19 12:16 97.9 F 106 H 20 06/15/19 10:27 100 16 06/15/19 08:00 06/15/19 07:48 97.6 F 92 20 06/15/19 06:55 100 16 BP Pulse Ox 06/15/19 15:28 135/81 96 06/15/19 14:30 06/15/19 13:58 06/15/19 12:16 140/81 94 L 06/15/19 10:27 06/15/19 08:00 96 06/15/19 07:48 158/94 H 96 06/15/19 06:55 Weight Weight 162 lb 4.8 oz - Physical Exam General: Alert, Oriented x3, No acute distress HEENT: Atraumatic, PERRLA, EOMI, Mucous membr. moist/pink Lungs: Other Cardiovascular: Regular rate, Normal S1, Normal S2, No murmurs, Gallops, Rubs Abdomen: Normal bowel sounds, Soft, No tenderness, No hepatospenomegaly, No masses Extremities: No clubbing, No cyanosis, No edema, Normal pulses, No tenderness/ swelling Skin: No rashes, No breakdown, No significant lesion Neurological: Normal gait, Normal speech, Strength at 5/5 X4 ext, Normal tone, Sensation intact, Cranial nerves 3-12 NL, Reflexes 2+ Psych/Mental Status: Mental status NL, Mood NL - Labs Result Diagrams: 06/15/19 05:51 06/14/19 03:55 Lab results: Laboratory Results - last 24 hr 06/15/19 05:51: WBC 12.7 H, RBC 3.03 L, Hgb 10.3 L, Hct 31.7 L, MCV 104.0 H, MCH 33.8 H, MCHC 32.4, RDW 17.9 H, Plt Count 186, MPV 7.6, Neutrophils % (Manual ) 83 H, Band Neuts % (Manual) 2 L, Lymphocytes % (Manual) 3 L, Monocytes % ( Manual) 12 H, Plt Morphology Comment Appears Adequate, Macrocytosis SLIGHT = 6- 15 cells, Schistocytes SLIGHT = 2-5 cells, Smear Path Review 06/15/19 05:51: Vitamin B12 651 06/15/19 05:51: Folate 13.40 Status: lab reviewed by me A/P - Problem (1) COPD exacerbation Current Visit: No Code(s): J44.1 - CHRONIC OBSTRUCTIVE PULMONARY DISEASE W ( ACUTE) EXACERBATION Status: Acute (2) Recurrent left pleural effusion Current Visit: No Code(s): J90 - PLEURAL EFFUSION, NOT ELSEWHERE CLASSIFIED Status: Acute (3) Adenocarcinoma of lung, stage 4 Current Visit: No Code(s): C34.90 - MALIGNANT NEOPLASM OF UNSP PART OF UNSP BRONCHUS OR LUNG Status: Chronic Qualifiers: Laterality: left Qualified Code(s): C34.92 - Malignant neoplasm of unspecified part of left bronchus or lung (4) Emphysema lung Current Visit: No Code(s): J43.9 - EMPHYSEMA, UNSPECIFIED Status: Chronic - Plan Plan: Abx, steroids per pulmonary Follow-up outpatient for chemo
--- NOTE | 2019-06-15 19:13 | PDOC.HOSPP ---
- Subjective Encounter Date: 06/15/19 Encounter Time: 16:00 Subjective: The patient is doing much better. Breathing is better, he starting to cough more. States that he took a shower today and didn't have that "terror" he usually senses while showering - Objective Vital Signs & Weight: Vital Signs (12 hours) Temp Pulse Pulse Pulse Resp BP BP 06/15/19 18:13 100 18 06/15/19 15:28 98.5 F 100 20 06/15/19 14:30 109 H 114 H 133/83 154/85 H 06/15/19 13:58 110 H 18 06/15/19 12:16 97.9 F 106 H 20 06/15/19 10:27 100 16 06/15/19 08:00 06/15/19 07:48 97.6 F 92 20 BP Pulse Ox 06/15/19 18:13 98 06/15/19 15:28 135/81 96 06/15/19 14:30 06/15/19 13:58 06/15/19 12:16 140/81 94 L 06/15/19 10:27 06/15/19 08:00 96 06/15/19 07:48 158/94 H 96 Weight Weight 162 lb 4.8 oz I&O: 06/14/19 06/15/19 06/16/19 06:59 06:59 06:59 Intake Total 480 1762 820 Output Total 200 1400 700 Balance 280 362 120 Result Diagrams: 06/15/19 05:51 06/14/19 03:55 Hospitalist ROS - Review of Systems Constitutional: denies: fever, chills - Medication Medications: Active Medications Generic Name Dose Route Start Last Admin Trade Name Freq PRN Reason Stop Dose Admin Albuterol/Ipratropium 3 ml 06/14/19 06:30 06/15/19 18:13 Duoneb NEB 3 ml [id number] TORIE Administration Docusate Sodium 100 mg 06/14/19 09:00 06/15/19 08:38 Colace PO 100 mg BID TORIE Administration Enoxaparin Sodium 40 mg 06/14/19 09:00 06/15/19 08:38 Lovenox SC 40 mg 0900 TORIE Administration Gabapentin 300 mg 06/14/19 09:00 06/15/19 08:38 Neurontin PO 300 mg BID TORIE Administration Guaifenesin 1,200 mg 06/14/19 21:00 06/15/19 08:38 Mucinex PO 1,200 mg Q12HR TORIE Administration Levofloxacin 500 mg/ Device 100 mls @ 100 mls/hr 06/14/19 16:30 06/15/19 17: 07 IVPB 100 mls 1630 TORIE Administration Ibuprofen 800 mg 06/14/19 09:00 06/15/19 08:38 Motrin PO 800 mg BID TORIE Administration Methylprednisolone Sodium Succinate 40 mg 06/14/19 06:00 06/15/19 17:07 Solu-Medrol IVP 40 mg 0600,1800 TORIE Administration Multivit/Folic Acid/Iron 1 tab 06/14/19 09:00 06/15/19 08:38 Vitamin PO 1 tab DAILY TORIE Administration Senna 2 tab 06/14/19 21:00 06/14/19 21:31 Senokot PO 2 tab HS TORIE Administration Zolpidem Tartrate 10 mg 06/14/19 21:00 06/14/19 21:35 Ambien PO 10 mg HS TORIE Administration - Exam General Appearance: NAD, awake alert Eye: PERRL, anicteric sclera ENT: normocephalic atraumatic, no oropharyngeal lesions Neck: supple, symmetric, no JVD, no thyromegaly Heart: RRR, no murmur, no gallops, no rubs Respiratory: CTAB Respiratory - other findings: mild wheeze Gastrointestinal: soft, non-tender, non-distended, normal bowel sounds Extremities: no cyanosis, no clubbing, no edema Skin: normal turgor, no lesions, no rashes Neurological: cranial nerve grossly intact, normal sensation to touch, no focal deficits, no new deficit Musculoskeletal: normal tone, normal strength, no muscle wasting Psychiatric: normal affect, normal behavior, A&O x 3, oriented to person, oriented to place, oriented to time Hosp A/P - Plan This is a 73 year old male with past medical history of emphysema, lung cancer with history of malignant pleural effusion who presented to ER with increasing shortness of breath Acute COPD exacerbation Chronic respiratory failure from emphysema - continue IV steroids 40 mg methylprednisolone q12 hours, levaquin, breathing treatments, mucinex - chest X ray showed no pneumonia Leukocytosis - WBC went from 13 to 9.5 . Chest X ray shows bilateral pleural effusions History of lung cancer with malignant pleural effusions - stopped pleurex catheter per patient - outpatient follow up of lung cancer MAcrocytic anemia - Hb . B12 and folate normal Transaminitis - AST 36,. ALT 67. Will recheck tomorrow GERD - PPI Code status: full DVT prophylaxis: enoxaparin
[2019-06-15] MEDS: Senokot 8.6 MG TAB PO SCH (20:45)
[2019-06-15] MEDS: Zolpidem Tartrate 5 MG TAB PO SCH (20:51)
[2019-06-16 06:06] LABS: Hemoglobin 10.2 g/dL (14.0-18.0); Mean Corpuscular Hemoglobin 33.5 pg (27.0-31.0); Mean Platelet Volume 7.7 fL (7.4-10.4); Platelet Count 193 thou/uL (130-400); RBC Distribution Width 17.8 % (11.5-14.5); Red Blood Cell (RBC) Count 3.06 mill/uL (4.70-6.10); White Blood Cell (WBC) Count 12.7 thou/uL (4.8-10.8)
[2019-06-16 06:17] LABS: ALT (SGPT) 50 U/L (8-55); AST (SGOT) 29 U/L (5-34); Albumin 3.2 g/dL (3.4-4.8); Alkaline Phosphatase 104 U/L (40-110); Anion Gap 12 mmol/L (10-20); BUN (Urea Nitrogen) 24 mg/dL (8.4-25.7); Bilirubin, Total 0.3 mg/dL (0.2-1.2); Calc. Creatinine Clearance 86 mL/min (70-130); Calcium 8.8 mg/dL (7.8-10.44); Carbon Dioxide 30 mmol/L (23-31); Chloride 103 mmol/L (98-107); Estimated GFR-MDRD Greater than 90; Globulin 2.8 g/dL (2.4-3.5); Glucose 110 mg/dL (83-110); Potassium 4.1 mmol/L (3.5-5.1); Sodium 141 mmol/L (136-145)
[2019-06-16] MEDS: methylPREDNISolone Sod Succ 40 MG VIAL IVP SCH (06:41)
--- NOTE | 2019-06-16 09:57 | PRG ---
DATE OF SERVICE: 06/16/2019 SUBJECTIVE: He feels better and wants to go home. He is still having string dusting when he tries to get up and walk. OBJECTIVE: VITAL SIGNS: Temperature 98, pulse 91, respirations 20, O2 saturation 95% on 4 L and blood pressure 149/92. HEENT: Unremarkable. NECK: No adenopathy or JVD. LUNGS: Clear without wheezing or rhonchi. CARDIAC: S1, S2. Regular. ABDOMEN: Soft. EXTREMITIES: No edema. ASSESSMENT: Chronic obstructive pulmonary disease with exacerbation. PLAN: Probably safe to go home on a tapered dose of steroids over 2 weeks and to complete 7 days of antibiotics. He should be able to resume his chemo by next week. His oxygen is already set up at home. Job ID: [id number]
[2019-06-16] MEDS: Docusate 100 MG CAP PO SCH (10:38)
[2019-06-16] MEDS: guaiFENesin ER 600 MG TAB PO SCH (10:38)
[2019-06-16] MEDS: Enoxaparin Sodium 40 MG/0.4 ML SYRINGE SC SCH (10:39)
[2019-06-16] MEDS: Ibuprofen 800 MG TAB PO SCH (10:39)
[2019-06-16] MEDS: Gabapentin 300 MG CAP PO SCH (10:39)
[2019-06-16] MEDS: Prenatal Vitamin 1 TAB PO SCH (10:39)
[2019-06-16 15:24] VITALS: BP 154/97; TEMP 97.5
--- NOTE | 2019-06-17 12:18 | DIS ---
DATE OF ADMISSION: 06/13/2019 DATE OF DISCHARGE: 06/16/2019 DISCHARGE DIAGNOSES: 1. Acute chronic obstructive pulmonary disease exacerbation, chronic respiratory failure from emphysema. 2. Leukocytosis. 3. History of lung cancer with malignant pleural effusions. 4. Transaminitis. 5. Macrocytic anemia. CONSULTATIONS: Dr. Wesly Starr with pulmonology, Dr. Emerald Colvin with Oncology. BRIEF HISTORY OF PRESENT ILLNESS: This is a 73-year-old male with a past medical history of stage IV lung adenocarcinoma, who presented to the ER with increasing cough and shortness of breath. The patient reports previously having a PleureX catheter for malignant pleural effusions. However, he ended up having this removed. The patient reports extreme shortness of breath just using the bathroom and taking a shower. On presentation to the ER, he had a chest x-ray which showed bilateral pleural effusions and diffuse parenchymal density with stranding and interstitial prominence. The patient was admitted for possible COPD exacerbation. Acute COPD exacerbation:. The patient was started on IV steroids, Levaquin, breathing treatments and Mucinex. Pulmonology, Dr. Starr was consulted and also given an acapella to help mobilize his sputum. The patient was also given a one time dose of Lasix. The patient had 2 sets of troponins, which were normal. The patient reported improvement in his breathing the following day, and his white blood cell count went down from 13 to 9.5. On 06/16, the patient had improved exercise tolerance and felt stable for discharge. He was discharged with Levaquin for an additional 5 days, prednisone taper for a total of 14 days. The patient was also advised to take Symbicort to prevent exacerbations. He has Symbicort at home, however was not using it. He was also given a prescription for Spiriva daily as well. He was told to follow up with his senior analyst market intelligence, Dr. Starr in a week. The patient was also referred to [facility] for snf and palliative care due to multiple admissions in the previous year. Leukocytosis: The patient had a white blood cell count of 13 on admission, which improved to 9.5. Chest x-ray showed bilateral pleural effusions with no pneumonia. History of lung cancer with malignant pleural effusions: The patient will follow up outpatient for chemotherapy with Dr. Colvin. Transaminitis: The patient had an AST of 36 and an ALT of 67. Repeat LFTs on 06/16 were normal. Microcytic anemia: The patient had a hemoglobin of 10 with an MCV of 105. B12 and folate levels were checked which were normal. All their home medications were continued. DISCHARGE PHYSICAL EXAMINATION: VITAL SIGNS: Temperature 97.5, heart rate 101, respiratory rate 24, O2 saturation 94% on 4 L nasal cannula. GENERAL: Alert, awake, and oriented x3. RESPIRATORY: The patient is on 4 L nasal cannula, slightly tachypneic, but overall is able to speak in sentences comfortably. CVS: Regular rate and rhythm with no murmurs, rubs, or gallops. LUNGS: No wheezing with overall clear to auscultation bilaterally. ABDOMEN: Positive bowel sounds, soft, nontender, nondistended. EXTREMITIES: No edema. PERTINENT LABORATORY DATA: CBC 06/16: White blood cell count 12.7, hemoglobin 10.2, hematocrit 32, MCV 105. BMP 06/16: Normal. Vitamin B12: 651. Folate: 13.40. Pertinent imaging: Chest x-ray 06/13: Chronic lung parenchymal changes in the lung bases with bilateral pleural effusions. DISCHARGE CONDITION: The patient is overall stable. He is slightly tachypneic , on 4 L of oxygen, but much improved from his baseline. ACTIVITY: As tolerated. The patient will get snf as an outpatient. DIET: Heart healthy diet. DISCHARGE MEDICATIONS: New medications: 1. Guaifenesin 600 mg p.o. q.12 hours. 2. Levaquin 750 mg p.o. daily for five tablets. 3. Prednisone 40 mg p.o. daily for 14 tablets with a taper with instructions given to the patient. 4. Spiriva 18 mcg inhalation daily. All other home medications were continued. DISCHARGE INSTRUCTIONS: The patient was advised to take Levaquin for 5 more days, and to take a steroid taper of 40 mg x3 days, 30 mg x3 days, 20 mg x3 days, then to continue his 10 mg dose after that. He was also advised to take Symbicort and Spiriva daily and follow up with Dr. Starr and his PCP in a week. Job ID: [id number] [facility]
== END 2019-06-16 15:40 | disposition home health service (06) | DRG 189 ==
LOC: ERS 14:15 → 2SW 19:00 → OBSVTOIN 23:34
PROVIDERS: ADMIT Internal Medicine; ATTEND Internal Medicine
DX: J96.21 Acute and chronic respiratory failure with hypoxia (principal); J90 Pleural effusion, not elsewhere classified; J44.1 Chronic obstructive pulmonary disease with (acute) exacerbation; C34.90 Malignant neoplasm of unspecified part of unspecified bronchus or lung; F43.10 Post-traumatic stress disorder, unspecified; M54.9 Dorsalgia, unspecified; G89.29 Other chronic pain; D64.9 Anemia, unspecified; D72.829 Elevated white blood cell count, unspecified; K21.9 Gastro-esophageal reflux disease without esophagitis; Z87.891 Personal history of nicotine dependence
CPT/HCPCS: 36415; 71046; 80048; 80053; 82607; 82746; 83605; 83735; 83880; 84484; 85007; 85025; 85027; 85060; 90471; 90662; 93005; 94640; 94760; 96365; 96366; 96368; 96375; G0008; J1650; J1940; J1956; J2920; J2930; J3475; J7611; J7620

== ENCOUNTER 2019-07-18 13:40 | Inpatient (IN) | payer MEDICARE, BC ==
--- NOTE | 2019-07-18 14:42 | RAD ---
PORTABLE CHEST 1 VIEW: Date: 07/18/19 Time: 1408 hours HISTORY: Stage for lung cancer, COPD, and shortness of breath. FINDINGS/IMPRESSION: Comparison made with exam of 06/13/19. Mild cardiomegaly is stable. Right-sided Port-A-Cath remains in place. There is interval worsening of the interstitial prominence bilaterally since the last exam. No pneumothoraces seen. Bilateral pleur al effusions are noted. There is atelectatic change/consolidation in the left lung base. POS: JHONNY
[2019-07-18 14:44] LABS: #Lymphocytes 0.3 thou/uL (1.20-3.40); #Neutrophils 4.9 thou/uL (1.40-6.50); %Eosinophils 0.9 % (0.0-10.0); %Lymphocytes 6.2 % (21.0-51.0); %Monocytes 0.2 % (0.0-10.0); %Neutrophils 92.7 % (42.0-75.0); Hemoglobin 11.1 g/dL (14.0-18.0); Mean Corpuscular HGB CONC 33.3 g/dL (32.0-36.0); Mean Corpuscular Hemoglobin 35.5 pg (27.0-31.0); Mean Platelet Volume 9.6 fL (7.4-10.4); Platelet Count 73 thou/uL (130-400); RBC Distribution Width 18.4 % (11.5-14.5); Red Blood Cell (RBC) Count 3.12 mill/uL (4.70-6.10); White Blood Cell (WBC) Count 5.2 thou/uL (4.8-10.8)
[2019-07-18 14:59] LABS: Anisocytosis SLIGHT = 6-15 cells (100X) (0-5/hpf); MDiff Complete? YES; Macrocytosis SLIGHT = 6-15 cells (100X) (0-5/hpf); Ovalocytes SLIGHT = 2-5 cells (100X) (0-1/hpf); Platelet Morphology Comment Appears Decreased; Polychromasia SLIGHT = 2-3 cells (100X) (0-2/hpf); Schistocytes SLIGHT = 2-5 cells (100X) (0-1/hpf)
[2019-07-18 15:03] LABS: ALT (SGPT) 35 U/L (8-55); AST (SGOT) 36 U/L (5-34); Albumin 3.2 g/dL (3.4-4.8); Alkaline Phosphatase 78 U/L (40-110); Anion Gap 17 mmol/L (10-20); BUN (Urea Nitrogen) 24 mg/dL (8.4-25.7); Bilirubin, Total 0.5 mg/dL (0.2-1.2); Calc. Creatinine Clearance 0 mL/min (70-130); Calcium 9.1 mg/dL (7.8-10.44); Carbon Dioxide 23 mmol/L (23-31); Chloride 105 mmol/L (98-107); Estimated GFR-MDRD 90; Globulin 2.9 g/dL (2.4-3.5); Glucose 101 mg/dL (83-110); Potassium 4.8 mmol/L (3.5-5.1); Protein, Total 6.1 g/dL (5.8-8.1); Sodium 140 mmol/L (136-145)
[2019-07-18] MEDS ORDERED: Iopamidol-370 76% 500 ML 1 ML ONE (15:18)
[2019-07-18 16:05] LABS: CKMB 2.3 ng/mL (0-6.6)
--- NOTE | 2019-07-18 16:09 | CT ---
CT PULMONARY ANGIOGRAM WITH IV CONTRAST AND 3-D POSTPROCESSING: HISTORY:COPD, cancer, shortness of breath COMPARISON: 04/27/2019 FINDINGS: There is good contrast opacification of the pulmonary arterial vasculature without filling defects to suggest pulmonary embolism. The thoracic aorta is well opacified without aneurysm or dissection. There are small bilateral pleural effusions and adjacent atelectatic changes. There are emphysematous changes in the lung lopez bilaterally. The 18 mm spiculated mass adjacent to the mediastinum in the anterior left upper lobe is unchanged. There are degenerative changes in the spine. Vertebroplasty changes in the thoracic spine are redemon strated. Upper abdominal tomograms demonstrate left renal cyst. IMPRESSION: No CT evidence of pulmonary embolism.
[2019-07-18] MEDS ORDERED: methylPREDNISolone Sod Succ/PF 125 MG/2 ML VIAL ONE (17:27)
[2019-07-18] MEDS ORDERED: Cefepime 2 GM VIAL ONE (17:27)
[2019-07-18 17:32] LABS: Bilirubin Negative (Negative); Blood, Urine Negative (Negative); Clarity Clear (Clear); Glucose, Urine (Dipstick) Normal (Negative); Leukocyte Negative Leu/uL (Negative); Nitrite Negative (Negative); Protein, Urine (Dipstick) 10 mg/dL (Neg-Trace); Urobilinogen Normal mg/dL (Less than 2)
[2019-07-18] MEDS ORDERED: Albuterol Sulfate 2.5 mg/3 ml Neb NEB PRN (17:42)
[2019-07-18] MEDS ORDERED: Acetaminophen 325 MG TAB PO PRN (17:46)
[2019-07-18] MEDS ORDERED: Bisacodyl 5 MG TAB PO PRN (17:47)
--- NOTE | 2019-07-18 18:49 | HP ---
PRIMARY CARE PROVIDER: Dr. Angel. CHIEF COMPLAINT: Short of breath. HISTORY OF PRESENT ILLNESS: This is a 73-year-old male with known stage IV lung cancer; COPD, on home oxygen at 4 L nasal cannula; PTSD; chronic back pain; last admission here in May 2019 for COPD with exacerbation, who presents to the emergency department by EMS for difficulty breathing. The patient reports onset about 3 days ago with progressive worsening to the point that he could not get off the couch today to go to his scheduled appointment with his primary care. He reports weakness, dyspnea at rest, home oxygen levels normally in the 93% to 95 % on nasal cannula 4 L, however, has been as low as 70% and more usual in the mid to upper 80%. He denies any fevers, chills, nausea, vomiting, abdominal pain, or chest pain. He has noted lower extremity edema, which has been ongoing. No precipitating factors. No relieving factors. No change in his medications. He is followed by Dr. Starr of Pulmonology and is on prednisone 10 mg once daily in addition to his usual medications. He is also followed by Dr. Daugherty of Oncology and his last chemotherapy was a week ago, and is scheduled every 3 weeks. In the emergency room, the patient is tachycardic, hypoxic, and was at 89% on 4 L, placed on nonrebreather and then transitioned to BiPAP. He has received 1 L of normal saline, nebulizer, 125 mg of Solu-Medrol, 1 g of vancomycin, cefepime 2 g. These are ordered and to be received here in the emergency room. ALLERGIES: NO KNOWN DRUG ALLERGIES. CURRENT MEDICATIONS: Reconciled with the patient's partner: 1. Ibuprofen 800 mg b.i.d. 2. DuoNeb 4 times a day scheduled. 3. Gabapentin 600 mg at bedtime. 4. Prednisone 10 mg daily. 5. Zolpidem 10 mg at bedtime. 6. Hydrocodone/acetaminophen 10-325 one tablet once daily. 7. Symbicort 160-4.5 two puffs b.i.d. 8. Spiriva once daily. 9. Multivitamin once daily. 10. Dulcolax one tablet b.i.d. 11. Senokot 2 tablets in the evening. 12. Acetaminophen once daily 500 mg. 13. Pantoprazole 40 mg at bedtime. 14. Mucus release 600 mg one tablet b.i.d. PAST MEDICAL HISTORY: 1. Stage IV adenocarcinoma. 2. Chronic respiratory failure secondary to COPD with hypoxemia, on home oxygen at 4 L nasal cannula. 3. PTSD. 4. Chronic back pain. PAST SURGICAL HISTORY: PleurX catheter for recurrent effusions. SOCIAL HISTORY: The patient is a former tobacco user. Denies alcohol. His significant other Janice Smith is his medical power of deputy county attorney. He is a full code. FAMILY HISTORY: Significant for esophageal cancer in father. REVIEW OF SYSTEMS: Positive for lower extremity edema. Negative for fevers, chills, nausea, vomiting, abdominal pain, or chest pain. All remaining review of systems are reviewed and negative. PHYSICAL EXAMINATION: VITAL SIGNS: Blood pressure 146/91, pulse 106, respirations 28, saturations 96 % on BiPAP. GENERAL: The patient is awake, alert, responsive, in no apparent distress. Able to speak in short phrases with the BiPAP on. HEENT: Pupils are equal and round. Extraocular movements are intact. NECK: Supple, nontender. LYMPHATICS: No palpable cervical or supraclavicular lymphadenopathy. LUNGS: Good air movement with BiPAP. No audible wheezing, rhonchi, or rales. HEART: Normal S1 and S2. Regular rate. No significant murmurs. ABDOMEN: Soft. Tenderness to palpation along the right side without any palpable abnormalities. Present bowel sounds. No rebound or guarding. Of note, no pain prior to palpation. EXTREMITIES: 2+ edema in his lower extremities. No clubbing or cyanosis. SKIN: No visible rashes. NEUROLOGIC: No focal deficits. Moves arms and legs equally. VASCULAR: 2+ dorsalis pedis pulses. PSYCHIATRIC: The patient appears euthymic. LABORATORY DATA: Labs reviewed. CBC; 5.2, 11.1, 33.3, 73 with an MCV of 107. Chemistry, renal panel 144.8, 105, 23, 24, 0.83, 101. LFTs; AST 36, ALT 35, alkaline phosphatase 78, total protein 6.1, albumin 3.2, total bilirubin 0.5. Troponin 0.043, CK-MB 2.3, CK 37. BNP 81. CT angiogram of the chest is negative for PE, small bilateral pleural effusions with adjacent atelectasis, emphysematous changes in the lung lopez bilateral, 18 mm spiculated mass adjacent to the mediastinum appears unchanged. Chest x-ray, mild cardiomegaly, stable, Port-A-Cath in place, worsening of the interstitial prominence bilateral since last exam, bilateral pleural effusions, atelectatic changes/consolidation in the left lung base. EKG; sinus rhythm, normal intervals, normal axis, poor R wave progression, no ST changes. IMPRESSION: 1. Acute on chronic respiratory failure with hypoxia. 2. Chronic obstructive pulmonary disease with exacerbation. 3. Stage IV adenocarcinoma of the lung. 4. Thrombocytopenia in a patient on chemotherapy. 5. Chronic back pain. 6. Slightly elevated LFT. 7. Anemia, mild. PLAN: 1. Admission to the hospital, the IMCU secondary to the need for BiPAP. 2. Consultation with Pulmonology and Oncology. 3. Continue steroids, nebs, and broad-spectrum antibiotics for now, anticipate these can be weaned per direction of Pulmonology. 4. IV fluid hydration. 5. We will check an echocardiogram given that the patient is on chemotherapy to see if this could be contributing to the dyspnea. 6. Continuing pain medication, his usual Symbicort or the equivalent, gabapentin , and bowel medications. 7. We will consult PT/ 8. DVT prophylaxis due to the thrombocytopenia will use pneumatic compression devices. 9. GI prophylaxis. The patient is on a PPI. We will continue that. 10. Code status is full. Confirmed with the patient and surrogate decision maker is his partner as noted above. 11. The patient is at high risk given age, comorbidities, and current presentation. 12. Reviewed the plan of care with the patient and his partner. No questions or further needs at the end of evaluation. Job ID: [id number] [facility]
[2019-07-18 22:22] LABS: Troponin I 0.053 ng/mL (< 0.028)
[2019-07-18 22:40] LABS: Troponin I 0.051 ng/mL (< 0.028)
[2019-07-18] MEDS: Mometasone/Formoterol 120 PUFF INHALER INH SCH (23:01)
[2019-07-18] MEDS: Ipratropium Bromide 2.5 ml Neb NEB SCH ×2 (23:04→23:05)
[2019-07-18] MEDS: methylPREDNISolone Sod Succ 40 MG VIAL IVP SCH (23:52)
[2019-07-18] MEDS: Gabapentin 300 MG CAP PO SCH (23:55)
[2019-07-18] MEDS: HYDROcodone/Acetaminophen 10/325 mg Tablet PO PRN (23:55)
[2019-07-18] MEDS: Sodium Chloride 0.9% 1,000 ML IV SCH (23:56)
[2019-07-18] MEDS: Famotidine 20 MG TAB PO SCH (23:56)
[2019-07-18] MEDS: guaiFENesin ER 600 MG TAB PO SCH (23:56)
[2019-07-18] MEDS: Senokot S 8.6-50 MG TAB PO SCH (23:56)
[2019-07-19] MEDS: Cefepime 2 GM in Sodium Chloride 0.9% 100 ML IVPB SCH ×3 (00:05→16:54)
[2019-07-19] MEDS ORDERED: Sodium Chloride 0.65% Nasal 44 ML BOT EA NARE PRN (00:15)
[2019-07-19] MEDS: Ipratropium Bromide 2.5 ml Neb NEB SCH ×6 (03:29→22:41)
[2019-07-19 05:15] LABS: #Lymphocytes 0.1 thou/uL (1.20-3.40); #Neutrophils 2.5 thou/uL (1.40-6.50); %Eosinophils 0.1 % (0.0-10.0); %Lymphocytes 4.1 % (21.0-51.0); %Monocytes 0.7 % (0.0-10.0); %Neutrophils 94.1 % (42.0-75.0); Hemoglobin 10.4 g/dL (14.0-18.0); Mean Corpuscular HGB CONC 32.3 g/dL (32.0-36.0); Mean Corpuscular Hemoglobin 34.4 pg (27.0-31.0); Mean Platelet Volume 9.4 fL (7.4-10.4); Platelet Count 64 thou/uL (130-400); RBC Distribution Width 17.9 % (11.5-14.5); Red Blood Cell (RBC) Count 3.02 mill/uL (4.70-6.10); White Blood Cell (WBC) Count 2.7 thou/uL (4.8-10.8)
[2019-07-19 05:23] LABS: Anion Gap 11 mmol/L (10-20); BUN (Urea Nitrogen) 21 mg/dL (8.4-25.7); Calc. Creatinine Clearance 96 mL/min (70-130); Calcium 9.1 mg/dL (7.8-10.44); Carbon Dioxide 31 mmol/L (23-31); Chloride 104 mmol/L (98-107); Estimated GFR-MDRD Greater than 90; Glucose 133 mg/dL (83-110); Potassium 5.1 mmol/L (3.5-5.1); Sodium 141 mmol/L (136-145)
[2019-07-19] MEDS: Vancomycin HCl 1 GM in Premix Bag 1 BAG IVPB SCH ×2 (05:47→17:41)
[2019-07-19] MEDS: methylPREDNISolone Sod Succ 40 MG VIAL IVP SCH ×2 (05:47→12:55)
[2019-07-19] MEDS: Mometasone/Formoterol 120 PUFF INHALER INH SCH ×2 (07:35→19:34)
[2019-07-19] MEDS ORDERED: Prevnar 13-Val Conj/PF 0.5 ML SYRINGE IM ONE (09:00)
[2019-07-19] MEDS: Senokot S 8.6-50 MG TAB PO SCH ×2 (09:05→20:34)
[2019-07-19] MEDS: Famotidine 20 MG TAB PO SCH ×2 (09:05→20:34)
[2019-07-19] MEDS: guaiFENesin ER 600 MG TAB PO SCH ×2 (09:06→20:35)
[2019-07-19] MEDS: Sodium Chloride 0.9% 1,000 ML IV SCH (09:06)
[2019-07-19] MEDS ORDERED: Furosemide 40 MG/4 ML VIAL SLOW IVP SCH (13:15)
--- NOTE | 2019-07-19 13:55 | PRG ---
DATE OF SERVICE: 07/19/2019 SERVICE: Pulmonary Medicine. INTERVAL HISTORY: The patient used the BiPAP last night. This morning, he is on a break. He does not indicate that he is much better compared to yesterday. Denies any fevers or chills. Otherwise, there has been no interval change to his condition. PHYSICAL EXAMINATION: VITAL SIGNS: Afebrile, pulse 125, blood pressure 127/97, respirations 34, and currently on 4 L nasal cannula. GENERAL: The patient is awake and alert, in no apparent distress. LUNGS: Extensive crackling is present. Slightly prolonged expiratory phase and rhonchi are also noted. HEART: Tachycardiac. Regular. ABDOMEN: Soft, nontender, and nondistended. Bowel sounds are positive. MUSCULOSKELETAL: No cyanosis or clubbing. There is 2+ pitting in the bilateral lower extremities. NEUROLOGIC: Grossly nonfocal. LABORATORY DATA: WBC 2.7, hemoglobin 10.4, platelets 64,000. Neutrophil count is 94%. Basic metabolic profile is completely unremarkable. Troponin is gently up trending to 0.053. Lactate 2.0. Blood cultures x2 and influenza A and B are unremarkable. ASSESSMENT: 1. Acute on chronic hypoxic respiratory failure. 2. Chronic obstructive pulmonary disease with acute exacerbation. 3. Acute on chronic diastolic heart failure. DISCUSSION AND PLAN: IV fluids will be interrupted, and we will give him a couple of doses of Lasix. Pulmonary/Critical Care will continue to follow along. Once he can tolerate a good break off BiPAP, he could be considered for transition to the regular floor. Pulmonary/Critical Care will otherwise continue to follow. Dr. Carlson has an established relationship with Mr. Parker and will assume coverage in the morning. Job ID: [id number] [facility]
--- NOTE | 2019-07-19 16:35 | PDOC.HOSPP ---
- Subjective Subjective: Doing better since getting off the BiPAP. Breathing more comfortably. No other complaints. - Objective Vital Signs & Weight: Vital Signs (12 hours) Temp Pulse Pulse Pulse Resp BP BP 07/19/19 16:03 98.2 F 07/19/19 15:47 120 H 29 H 07/19/19 15:02 115 H 116 H 128/92 H 142/95 H 07/19/19 10:57 98.4 F 07/19/19 10:37 115 H 22 H 07/19/19 07:40 07/19/19 07:34 107 H 26 H 07/19/19 07:25 98.2 F Pulse Ox Pulse Ox Pulse Ox Pulse Ox 07/19/19 16:03 07/19/19 15:47 93 L 07/19/19 15:02 91 L 83 L 94 L 07/19/19 10:57 07/19/19 10:37 94 L 07/19/19 07:40 97 07/19/19 07:34 97 07/19/19 07:25 Weight Weight 170 lb 4 oz Most Recent Monitor Data Heart Rate from ECG 122 NIBP 127/97 NIBP BP-Mean 107 Respiration from ECG 22 SpO2 90 I&O: 07/18/19 07/19/19 07/20/19 06:59 06:59 06:59 Intake Total 598 250 Output Total 275 550 Balance 323 -300 Result Diagrams: 07/19/19 04:25 07/19/19 04:25 Hospitalist ROS - Medication Medications: Active Medications Generic Name Dose Route Start Last Admin Trade Name Freq PRN Reason Stop Dose Admin Hydrocodone Bitart/Acetaminophen 1 tab 07/18/19 17:47 07/18/19 23:55 [place] 10/325 PO 1 tab Q4H PRN Administration Moderate to Severe Pain (6-10) Famotidine 20 mg 07/18/19 21:00 07/19/19 09:05 Pepcid PO 20 mg BID TORIE Administration Gabapentin 600 mg 07/18/19 21:00 07/18/19 23:55 Neurontin PO 600 mg HS TORIE Administration Guaifenesin 600 mg 07/18/19 21:00 07/19/19 09:06 Mucinex PO 600 mg Q12HR TORIE Administration Cefepime HCl 2 gm/ Sodium 100 mls @ 200 mls/hr 07/19/19 01:00 07/19/19 09:06 Chloride IVPB 100 mls Q8H TORIE Administration Vancomycin HCl 1 gm/ Device 200 mls @ 200 mls/hr 07/19/19 06:00 07/19/19 05: 47 IVPB 200 mls 0600,1800 TORIE Administration Ipratropium [place] 2.5 ml 07/18/19 18:30 07/19/19 15:47 Atrovent NEB 2.5 ml [id number] TORIE Administration Mometasone Furoate/Formoterol Fumar 2 puff 07/18/19 18:30 07/19/19 07:35 Dulera 200 Mcg/5 Mcg Inhaler INH 2 puff BID-RT TORIE Administration Pantoprazole Sodium 40 mg 07/19/19 09:00 07/19/19 09:05 Protonix PO 40 mg DAILY TORIE Administration Senna/Docusate Sodium 1 tab 07/18/19 21:00 07/19/19 09:05 Senokot S PO 1 tab BID TORIE Administration Sodium Chloride 10 ml 07/18/19 21:00 07/19/19 09:19 Flush - Normal Saline IVF Not Given Q12HR TORIE - Exam General Appearance: NAD, awake alert Heart: RRR, no murmur, no gallops, no rubs, normal peripheral pulses Respiratory: no rales, no ronchi, tachypneic Respiratory - other findings: Coarse breath sounds, but fair air exchange. Gastrointestinal: soft, non-tender, non-distended, normal bowel sounds, no palpable masses, no hepatomegaly, no splenomegaly, no bruit Extremities: 2+ LE edema (feet) Skin: normal turgor Musculoskeletal: normal tone, normal strength Psychiatric: normal affect, normal behavior, A&O x 3 Hosp A/P (1) Acute respiratory failure with hypoxia Code(s): J96.01 - ACUTE RESPIRATORY FAILURE WITH HYPOXIA Status: Acute (2) COPD exacerbation Code(s): J44.1 - CHRONIC OBSTRUCTIVE PULMONARY DISEASE W (ACUTE) EXACERBATION Status: Acute (3) Recurrent left pleural effusion Code(s): J90 - PLEURAL EFFUSION, NOT ELSEWHERE CLASSIFIED Status: Acute (4) Adenocarcinoma of lung, stage 4 Code(s): C34.90 - MALIGNANT NEOPLASM OF UNSP PART OF UNSP BRONCHUS OR LUNG Status: Chronic Qualifiers: Laterality: left Qualified Code(s): C34.92 - Malignant neoplasm of unspecified part of left bronchus or lung (5) Dyslipidemia Code(s): E78.5 - HYPERLIPIDEMIA, UNSPECIFIED Status: Chronic (6) Emphysema lung Code(s): J43.9 - EMPHYSEMA, UNSPECIFIED Status: Chronic (7) PTSD (post-traumatic stress disorder) Code(s): F43.10 - POST-TRAUMATIC STRESS DISORDER, UNSPECIFIED Status: Chronic (8) Tobacco abuse Code(s): Z72.0 - TOBACCO USE Status: Chronic (9) Pancytopenia due to chemotherapy Code(s): D61.810 - ANTINEOPLASTIC CHEMOTHERAPY INDUCED PANCYTOPENIA Status: Acute (10) Myocardial infarction acute Code(s): I21.9 - ACUTE MYOCARDIAL INFARCTION, UNSPECIFIED Status: Acute Qualifiers: Myocardial infarction type: type 2 Qualified Code(s): I21.A1 - Myocardial infarction type 2 Plan: Secondary to acute hypoxic resp failure related ischemia (11) Chronic back pain Code(s): M54.9 - DORSALGIA, UNSPECIFIED; G89.29 - OTHER CHRONIC PAIN Status: Acute - Plan CT reviewed - Severe Emphysematous changes of the lung. Large areas of space. Continue oxygen and/or BiPAP as indicated. Pulmonary following. Steroids, nebs, abx. Gentle diuresis.
[2019-07-19] MEDS: Gabapentin 300 MG CAP PO SCH (20:33)
[2019-07-19] MEDS ORDERED: Chloraseptic Spray 180 ml Bottle PO PRN (21:15)
--- NOTE | 2019-07-19 23:33 | CON ---
DATE OF CONSULTATION: REASON FOR CONSULT: Lung cancer. HISTORY OF PRESENT ILLNESS: Mr. Parker is a pleasant 73-year-old gentleman, well known to our service with stage IV adenocarcinoma of the lung. He is currently receiving single agent Alimta for maintenance. His last dose was July 12. He has a history of severe emphysema, CHF. Yesterday, he had acute shortness of breath. He was unable to get up from the couch and so 911 was called and he was brought to the emergency room for evaluation. He underwent a CT pulmonary angiogram that was negative for pulmonary embolus. It did show the left upper lobe spiculated mass. This was unchanged and stable from the CT scan in April. He was admitted to the [facility] and placed on BiPAP overnight. He has also been diuresed and is currently on O2. He has no complaints except for the IV in his arm. PAST MEDICAL HISTORY: 1. Stage IV adenocarcinoma of the lung. 2. COPD and emphysema. 3. History of hepatitis. PAST SURGICAL HISTORY: MediPort placement. ALLERGIES: NO KNOWN DRUG ALLERGIES. HOME MEDICATIONS: 1. Prednisone. 2. Albuterol. 3. Gabapentin. 4. Hydrocodone. 5. Mucinex. 6. Prilosec. 7. Oxygen. 8. Ambien. FAMILY HISTORY: Noncontributory. SOCIAL HISTORY: , lives with his spouse. 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 No alcohol or illicit drug use. REVIEW OF SYSTEMS: Positive for shortness of breath, cough, and bilateral lower extremity edema. Otherwise, negative. PHYSICAL EXAMINATION: VITAL SIGNS: Temperature 98.4, pulse is 120, respiratory rate 29, BP is 127/97. He is 93% on 4 L. GENERAL: This is a chronically ill-appearing male, in no acute distress. HEENT: Normocephalic, atraumatic. Pupils are equal and reactive to light. NECK: Supple. CV: Regular rate and rhythm. He has tachycardia. LUNGS: Diminished throughout. ABDOMEN: Soft and nontender. Bowel sounds are positive. EXTREMITIES: He has 2+ bilateral lower extremity edema. SKIN: No rash. HEMATOLOGIC: No petechiae or purpura. NEUROLOGICAL: Nonfocal. PSYCH: He is alert, oriented and appropriate. PERTINENT LABS AND X-RAYS: Current WBCs 2.7, hemoglobin 10.4, hematocrit 32.2, platelet count 64,000. Sodium is 141, potassium 5.1, chloride 104, CO2 is 31, BUN is 21, creatinine 0.73, troponin 0.053, calcium 9.1. Bilirubin 0.5, AST 36, ALT is 35, alkaline phosphatase is 78. Serum total protein 6.1, albumin 3.2, globulin 2.9. ASSESSMENT: 1. Acute chronic obstructive pulmonary disease exacerbation. 2. Stage IV lung cancer, on maintenance Alimta. DISCUSSION: The patient has been diuresed and has been able to remove the BiPAP. He is currently on oxygen via nasal cannula. He does have pancytopenia due to his last chemo treatment. It is mild and he is not neutropenic. His next cycle, it is in two weeks. I will have the nurse access his MediPort as his only complaint is IV that is in his arm. We will provide supportive care and follow along with his hospital course. Thank you for the consult. Job ID: [id number]
[2019-07-20] MEDS: Cefepime 2 GM in Sodium Chloride 0.9% 100 ML IVPB SCH ×3 (00:50→16:37)
[2019-07-20] MEDS: Ipratropium Bromide 2.5 ml Neb NEB SCH ×6 (02:27→22:09)
[2019-07-20] MEDS ORDERED: Mometasone/Formoterol 120 PUFF INHALER ONE (06:57)
[2019-07-20] MEDS ORDERED: Ipratropium Bromide 2.5 ml Neb ONE (06:58)
[2019-07-20] MEDS: Mometasone/Formoterol 120 PUFF INHALER INH SCH ×2 (07:10→18:48)
[2019-07-20] MEDS: Vancomycin HCl 1 GM in Premix Bag 1 BAG IVPB SCH ×2 (12:18→16:37)
[2019-07-20] MEDS: Furosemide 40 MG/4 ML VIAL SLOW IVP SCH (12:18)
[2019-07-20] MEDS: Famotidine 20 MG TAB PO SCH ×2 (12:19→20:04)
[2019-07-20] MEDS: guaiFENesin ER 600 MG TAB PO SCH ×2 (12:19→20:04)
[2019-07-20] MEDS: predniSONE 20 MG TAB PO SCH (12:19)
[2019-07-20] MEDS: Senokot S 8.6-50 MG TAB PO SCH ×2 (12:20→20:04)
[2019-07-20 15:55] LABS: Anion Gap 8 mmol/L (10-20); BUN (Urea Nitrogen) 27 mg/dL (8.4-25.7); Calc. Creatinine Clearance 96 mL/min (70-130); Calcium 8.4 mg/dL (7.8-10.44); Carbon Dioxide 32 mmol/L (23-31); Chloride 104 mmol/L (98-107); Estimated GFR-MDRD Greater than 90; Glucose 111 mg/dL (83-110); Sodium 140 mmol/L (136-145)
[2019-07-20 15:56] LABS: Phosphorus 2.6 mg/dL (2.3-4.7)
[2019-07-20 16:51] LABS: Magnesium 1.9 mg/dL (1.6-2.6)
[2019-07-20] MEDS: Morphine 4 MG/ML VIAL SLOW IVP PRN ×2 (18:02→21:27)
--- NOTE | 2019-07-20 19:20 | PRG ---
DATE OF SERVICE: 07/20/2019 OBJECTIVE: Jordy Parker is a very pleasant gentleman I have seen in the office many years ago. He has recently been seen by Dr. Starr and Dr. Carlson . He apparently presented a couple of days ago with complaints of shortness of breath. He is chronically on oxygen at home. He has known chronic obstructive pulmonary disease. He also has advanced lung cancer. Today, I was asked by the nurses to look at him when he became very tachypneic and went back on BiPAP. He said that he was just moving around in bed and once he got into position he wanted to, he was tachypneic. He could not get caught up on his breathing. After talking with his in the room for about 15 minutes I really believe that what he was having was a panic attack associated with very real dyspnea. He appeared to be calming down while I was in the room with him. He did have a CT angiogram done in the emergency department that did not show any evidence of thromboembolic disease. He had small bilateral effusions. He had a left upper lobe mass that is just under 2 cm. PHYSICAL EXAMINATION: VITAL SIGNS: Heart rates was 108, blood pressure 144/104, respiratory rate is in the 30s at 6:00. I came back and checked on him and sat in the room with him for a while and his respiratory rate was coming back down on BiPAP. LUNGS: Actually free of wheezes. HEART: Regular rhythm. ABDOMEN: Soft. LABORATORY DATA: White count was 2.7 yesterday. Electrolytes were unremarkable today other than a bicarb of 32. It was 31 yesterday. IMPRESSION: 1. Chronic hypoxemic respiratory failure with hypercarbia. 2. Chronic obstructive pulmonary disease exacerbation. 3. Non-small cell lung cancer. 4. Anxiety and panic. I think continue with BiPAP is reasonable for now. A low dose of morphine intermittently may be very helpful with his air hunger. I have encouraged him not to eat the big meal that was at the bedside and I have just asked him to drink a couple of cans of chocolate Ensure before he goes to bed tonight. Once he starts feeling better, the BiPAP can be removed. He can be placed back on cannula oxygen. An echocardiogram was done which shows normal ejection fraction. We will continue to follow. Job ID: [id number]
--- NOTE | 2019-07-20 19:53 | PDOC.HOSPP ---
- Subjective Subjective: Had an episode of worsening SOB this morning. He said he was just getting up to use the urinal and got very SOB. Took him about an hour for him to fully recover. Went back on Bipap for a little while. He is better now. Has concerns that his concentrator at home is not as effective as the oxygen they have at home. - Objective Vital Signs & Weight: Vital Signs (12 hours) Temp Pulse Pulse Pulse Resp BP BP 07/20/19 19:30 97.8 F 07/20/19 18:45 104 H 24 H 07/20/19 16:05 113 H 109 H 147/96 H 151/96 H 07/20/19 15:22 97.1 F L 07/20/19 14:46 100 18 07/20/19 12:00 97.6 F 107 H 30 H BP Pulse Ox Pulse Ox Pulse Ox 07/20/19 19:30 07/20/19 18:45 99 07/20/19 16:05 94 L 95 07/20/19 15:22 07/20/19 14:46 100 07/20/19 12:00 144/92 H 95 Weight Weight 170 lb 4 oz Most Recent Monitor Data Heart Rate from ECG 108 NIBP 144/104 NIBP BP-Mean 117 Respiration from ECG 34 SpO2 93 I&O: 07/19/19 07/20/19 07/21/19 06:59 06:59 06:59 Intake Total 598 1792 120 Output Total 275 1100 Balance 323 692 120 Result Diagrams: 07/19/19 04:25 07/20/19 04:15 Hospitalist ROS - Medication Medications: Active Medications Generic Name Dose Route Start Last Admin Trade Name Freq PRN Reason Stop Dose Admin Hydrocodone Bitart/Acetaminophen 1 tab 07/18/19 17:47 07/18/19 23:55 [place] 10/325 PO 1 tab Q4H PRN Administration Moderate to Severe Pain (6-10) Famotidine 20 mg 07/18/19 21:00 07/20/19 12:19 Pepcid PO Not Given BID TORIE Furosemide 40 mg 07/20/19 06:00 07/20/19 12:18 Lasix SLOW IVP Not Given 0600 TORIE Gabapentin 600 mg 07/18/19 21:00 07/19/19 20:33 Neurontin PO 600 mg HS TORIE Administration Guaifenesin 600 mg 07/18/19 21:00 07/20/19 12:19 Mucinex PO Not Given Q12HR TORIE Cefepime HCl 2 gm/ Sodium 100 mls @ 200 mls/hr 07/19/19 01:00 07/20/19 16:37 Chloride IVPB 100 mls Q8H TORIE Administration Vancomycin HCl 1 gm/ Device 200 mls @ 200 mls/hr 07/19/19 06:00 07/20/19 16: 37 IVPB 200 mls 0600,1800 TORIE Administration Ipratropium [place] 2.5 ml 07/18/19 18:30 07/20/19 18:45 Atrovent NEB 2.5 ml [id number] TORIE Administration Mometasone Furoate/Formoterol Fumar 2 puff 07/18/19 18:30 07/20/19 18:48 Dulera 200 Mcg/5 Mcg Inhaler INH 2 puff BID-RT TORIE Administration Morphine Sulfate 4 mg 07/20/19 17:52 07/20/19 18:02 Morphine SLOW IVP 4 mg Q4H PRN Administration Congestion Pantoprazole Sodium 40 mg 07/19/19 09:00 07/20/19 12:19 Protonix PO Not Given DAILY TORIE Phenol 0 ml 07/19/19 21:15 07/19/19 21:49 Chloraseptic [place] 180 Ml Bot PO 2 spr QID PRN Administration Sore Throat Prednisone 40 mg 07/20/19 08:00 07/20/19 12:19 Prednisone PO Not Given QAM-WM TORIE Senna/Docusate Sodium 1 tab 07/18/19 21:00 07/20/19 12:20 Senokot S PO Not Given BID [facility] Sodium Chloride 10 ml 07/18/19 21:00 07/20/19 12:20 Flush - Normal Saline IVF Not Given Q12HR TORIE - Exam General Appearance: NAD, awake alert Neck: supple, symmetric, no JVD, no thyromegaly, no lymphadenopathy, no carotid bruit Heart: RRR, no murmur, no gallops, no rubs, normal peripheral pulses Respiratory: CTAB, no wheezes, no rales Respiratory - other findings: coarse breath sounds Gastrointestinal: soft, non-tender, non-distended, normal bowel sounds, no palpable masses, no hepatomegaly, no splenomegaly, no bruit Extremities: 1+ LE edema (Both feet.) Skin - other findings: Facial erythema Neurological: no focal deficits Musculoskeletal: normal tone Psychiatric: normal affect, normal behavior, A&O x 3 Hosp A/P (1) Acute and chronic respiratory failure with hypoxia Code(s): J96.21 - ACUTE AND CHRONIC RESPIRATORY FAILURE WITH HYPOXIA Status: Acute (2) COPD exacerbation Code(s): J44.1 - CHRONIC OBSTRUCTIVE PULMONARY DISEASE W (ACUTE) EXACERBATION Status: Acute (3) Recurrent left pleural effusion Code(s): J90 - PLEURAL EFFUSION, NOT ELSEWHERE CLASSIFIED Status: Acute (4) Adenocarcinoma of lung, stage 4 Code(s): C34.90 - MALIGNANT NEOPLASM OF UNSP PART OF UNSP BRONCHUS OR LUNG Status: Chronic Qualifiers: Laterality: left Qualified Code(s): C34.92 - Malignant neoplasm of unspecified part of left bronchus or lung (5) Dyslipidemia Code(s): E78.5 - HYPERLIPIDEMIA, UNSPECIFIED Status: Chronic (6) Emphysema lung Code(s): J43.9 - EMPHYSEMA, UNSPECIFIED Status: Chronic (7) PTSD (post-traumatic stress disorder) Code(s): F43.10 - POST-TRAUMATIC STRESS DISORDER, UNSPECIFIED Status: Chronic (8) Tobacco abuse Code(s): Z72.0 - TOBACCO USE Status: Chronic (9) Pancytopenia due to chemotherapy Code(s): D61.810 - ANTINEOPLASTIC CHEMOTHERAPY INDUCED PANCYTOPENIA Status: Acute (10) Myocardial infarction acute Code(s): I21.9 - ACUTE MYOCARDIAL INFARCTION, UNSPECIFIED Status: Acute Qualifiers: Myocardial infarction type: type 2 Qualified Code(s): I21.A1 - Myocardial infarction type 2 (11) Chronic back pain Code(s): M54.9 - DORSALGIA, UNSPECIFIED; G89.29 - OTHER CHRONIC PAIN Status: Acute - Plan CT reviewed - Severe Emphysematous changes of the lung. Continue oxygen and/or BiPAP as indicated. Weaned down to [place] oxygen for the most part. Pulmonary following. Steroids, nebs, abx. Gentle diuresis.
[2019-07-20] MEDS: Gabapentin 300 MG CAP PO SCH (20:04)
[2019-07-20 22:27] LABS: Vancomycin, Trough 7.9 ug/mL
[2019-07-21] MEDS: Cefepime 2 GM in Sodium Chloride 0.9% 100 ML IVPB SCH ×3 (00:17→16:43)
[2019-07-21] MEDS: Morphine 4 MG/ML VIAL SLOW IVP PRN ×3 (01:25→14:39)
[2019-07-21] MEDS: Ipratropium Bromide 2.5 ml Neb NEB SCH ×6 (02:13→22:25)
[2019-07-21] MEDS: Furosemide 40 MG/4 ML VIAL SLOW IVP SCH (05:21)
[2019-07-21] MEDS: Vancomycin HCl 1 GM in Premix Bag 1 BAG IVPB SCH ×2 (05:21→16:43)
[2019-07-21 06:07] LABS: Phosphorus 3.1 mg/dL (2.3-4.7)
[2019-07-21 06:12] LABS: Anion Gap 10 mmol/L (10-20); BUN (Urea Nitrogen) 31 mg/dL (8.4-25.7); Calc. Creatinine Clearance 93 mL/min (70-130); Calcium 9.3 mg/dL (7.8-10.44); Carbon Dioxide 32 mmol/L (23-31); Chloride 106 mmol/L (98-107); Estimated GFR-MDRD Greater than 90; Glucose 78 mg/dL (83-110); Magnesium 2.1 mg/dL (1.6-2.6); Potassium 4.1 mmol/L (3.5-5.1); Sodium 144 mmol/L (136-145)
[2019-07-21] MEDS: Mometasone/Formoterol 120 PUFF INHALER INH SCH ×2 (08:28→19:06)
[2019-07-21] MEDS: Senokot S 8.6-50 MG TAB PO SCH ×2 (10:02→20:21)
[2019-07-21] MEDS: predniSONE 20 MG TAB PO SCH (10:03)
[2019-07-21] MEDS: guaiFENesin ER 600 MG TAB PO SCH ×2 (10:03→20:21)
[2019-07-21] MEDS: Famotidine 20 MG TAB PO SCH ×2 (10:03→20:21)
--- NOTE | 2019-07-21 10:21 | PRG ---
DATE OF SERVICE: 07/21/2019 SUBJECTIVE: Mr. Parker is still having episodic breathing difficulties. He is off the BiPAP while talking to him this morning. OBJECTIVE: VITAL SIGNS: On exam, his O2 saturations in the low 90s on 4 L, temperature 97.8, pulse 116, and blood pressure 96/65. GENERAL: He is a chronically ill-appearing male, who is in mild respiratory discomfort. HEENT: Unremarkable. NECK: No adenopathy. No JVD. CHEST: Poor air movement. No crackles or wheezing. CARDIAC: S1 and S2, regular. ABDOMEN: Soft. EXTREMITIES: No edema. LABORATORY DATA: Sodium 144, potassium 4.1, chloride 106, CO2 of 32, BUN 31, creatinine 0.7, and glucose 78. ASSESSMENT: 1. Chronic hypoxic respiratory failure with hypercapnia. 2. Chronic obstructive pulmonary disease exacerbation versus non-small cell lung cancer. 3. Severe anxiety. PLAN: If he can stay off the BiPAP today, he can probably go to the regular floor tomorrow. He is currently on broad-spectrum IV antibiotics, diuretics, and steroids. We may need to consider backing off the diuretics if contraction alkalosis becomes a big problem. Job ID: [id number]
[2019-07-21] MEDS ORDERED: Ipratropium Bromide 2.5 ml Neb ONE (11:10)
[2019-07-21 11:45] LABS: Band 2 % (5-11); Eosinophils 4 % (0-10); Hemoglobin 9.8 g/dL (14.0-18.0); Lymphocytes 25 % (21-51); MDiff Complete? YES; Macrocytosis SLIGHT = 6-15 cells (100X) (0-5/hpf); Mean Corpuscular HGB CONC 32.1 g/dL (32.0-36.0); Mean Corpuscular Hemoglobin 33.9 pg (27.0-31.0); Mean Platelet Volume 9.8 fL (7.4-10.4); Monocytes 22 % (0-10); Neutrophil 47 % (42-75); Platelet Count 45 thou/uL (130-400); Platelet Morphology Comment Appears Decreased; Polychromasia SLIGHT = 2-3 cells (100X) (0-2/hpf); RBC Distribution Width 17.8 % (11.5-14.5); Red Blood Cell (RBC) Count 2.89 mill/uL (4.70-6.10); White Blood Cell (WBC) Count 2.6 thou/uL (4.8-10.8)
[2019-07-21] MEDS ORDERED: Ondansetron PF 4 MG/2 ML Vial IVP PRN (12:14)
[2019-07-21] MEDS ORDERED: Ondansetron ORAL SOLN. 4 MG/5 ML UDCUP PO PRN (12:14)
--- NOTE | 2019-07-21 16:44 | PDOC.HOSPP ---
- Subjective Subjective: Has learned to use the urinal without getting out of bed so he does not get so SOB. He is happy with that. He did have an episode of SOB requiring a brief return to bipap. Had some morphine ordered and that has helped. He does endorse some anxiety issues. His has been speaking with a hospice home today. Discussed with her. They are looking at a private home hospice situation. Neither the patient of his believe he will be able to go home again because of his severe debility. - Objective Vital Signs & Weight: Vital Signs (12 hours) Temp Pulse Resp Pulse Ox 07/21/19 14:45 110 H 07/21/19 14:42 110 H 30 H 98 07/21/19 11:11 107 H 17 89 L 07/21/19 10:37 96.9 F L 07/21/19 08:29 93 L 07/21/19 08:26 116 H 14 93 L 07/21/19 08:00 95 07/21/19 07:36 97.8 F Weight Weight 170 lb 4 oz Most Recent Monitor Data Heart Rate from ECG 99 NIBP 107/70 NIBP BP-Mean 82 Respiration from ECG 17 SpO2 100 I&O: 07/20/19 07/21/19 07/22/19 06:59 06:59 06:59 Intake Total 1792 920 Output Total 1100 1100 Balance 692 -180 Result Diagrams: 07/21/19 08:51 07/21/19 05:32 Hospitalist ROS - Medication Medications: Active Medications Generic Name Dose Route Start Last Admin Trade Name Freq PRN Reason Stop Dose Admin Hydrocodone Bitart/Acetaminophen 1 tab 07/18/19 17:47 07/18/19 23:55 [place] 10/325 PO 1 tab Q4H PRN Administration Moderate to Severe Pain (6-10) Famotidine 20 mg 07/18/19 21:00 07/21/19 10:03 Pepcid PO 20 mg BID TORIE Administration Gabapentin 600 mg 07/18/19 21:00 07/20/19 20:04 Neurontin PO 600 mg HS TORIE Administration Guaifenesin 600 mg 07/18/19 21:00 07/21/19 10:03 Mucinex PO 600 mg Q12HR TORIE Administration Cefepime HCl 2 gm/ Sodium 100 mls @ 200 mls/hr 07/19/19 01:00 07/21/19 10:03 Chloride IVPB 100 mls Q8H TORIE Administration Vancomycin HCl 1 gm/ Device 200 mls @ 200 mls/hr 07/19/19 06:00 07/21/19 05: 21 IVPB 200 mls 0600,1800 TORIE Administration Ipratropium [place] 2.5 ml 07/18/19 18:30 07/21/19 14:42 Atrovent NEB 2.5 ml [id number] TORIE Administration Mometasone Furoate/Formoterol Fumar 2 puff 07/18/19 18:30 07/21/19 08:28 Dulera 200 Mcg/5 Mcg Inhaler INH 2 puff BID-RT TORIE Administration Morphine Sulfate 4 mg 07/20/19 17:52 07/21/19 14:39 Morphine SLOW IVP 4 mg Q4H PRN Administration Congestion Ondansetron HCl 4 mg 07/21/19 12:14 07/21/19 13:01 Zofran IVP 4 mg Q6H PRN Administration Nausea/Vomiting Pantoprazole Sodium 40 mg 07/19/19 09:00 07/21/19 10:02 Protonix PO 40 mg DAILY TORIE Administration Phenol 0 ml 07/19/19 21:15 07/19/19 21:49 Chloraseptic [place] 180 Ml Bot PO 2 spr QID PRN Administration Sore Throat Prednisone 40 mg 07/20/19 08:00 07/21/19 10:03 Prednisone PO 40 mg QAM-WM TORIE Administration Senna/Docusate Sodium 1 tab 07/18/19 21:00 07/21/19 10:02 Senokot S PO 1 tab BID TORIE Administration Sodium Chloride 10 ml 07/18/19 21:00 07/21/19 10:04 Flush - Normal Saline IVF 10 ml Q12HR TORIE Administration - Exam General Appearance: NAD, awake alert Eye - other findings: Mild facial erythema Heart: RRR, no murmur, no gallops, no rubs, normal peripheral pulses Respiratory: CTAB, no wheezes, no rales, no ronchi, normal chest expansion, normal percussion, tachypneic Respiratory - other findings: Diffusely diminished Gastrointestinal: soft, non-tender, non-distended, normal bowel sounds, no palpable masses, no hepatomegaly, no splenomegaly, no bruit Extremities: no cyanosis, no clubbing, no edema Skin: normal turgor Musculoskeletal: generalized weakness Psychiatric: normal affect, normal behavior, A&O x 3 Hosp A/P (1) Acute and chronic respiratory failure with hypoxia Code(s): J96.21 - ACUTE AND CHRONIC RESPIRATORY FAILURE WITH HYPOXIA Status: Acute (2) COPD exacerbation Code(s): J44.1 - CHRONIC OBSTRUCTIVE PULMONARY DISEASE W (ACUTE) EXACERBATION Status: Acute (3) Recurrent left pleural effusion Code(s): J90 - PLEURAL EFFUSION, NOT ELSEWHERE CLASSIFIED Status: Acute (4) Adenocarcinoma of lung, stage 4 Code(s): C34.90 - MALIGNANT NEOPLASM OF UNSP PART OF UNSP BRONCHUS OR LUNG Status: Chronic Qualifiers: Laterality: left Qualified Code(s): C34.92 - Malignant neoplasm of unspecified part of left bronchus or lung (5) Dyslipidemia Code(s): E78.5 - HYPERLIPIDEMIA, UNSPECIFIED Status: Chronic (6) Emphysema lung Code(s): J43.9 - EMPHYSEMA, UNSPECIFIED Status: Chronic (7) PTSD (post-traumatic stress disorder) Code(s): F43.10 - POST-TRAUMATIC STRESS DISORDER, UNSPECIFIED Status: Chronic (8) Tobacco abuse Code(s): Z72.0 - TOBACCO USE Status: Chronic (9) Pancytopenia due to chemotherapy Code(s): D61.810 - ANTINEOPLASTIC CHEMOTHERAPY INDUCED PANCYTOPENIA Status: Acute (10) Myocardial infarction acute Code(s): I21.9 - ACUTE MYOCARDIAL INFARCTION, UNSPECIFIED Status: Acute Qualifiers: Myocardial infarction type: type 2 Qualified Code(s): I21.A1 - Myocardial infarction type 2 (11) Chronic back pain Code(s): M54.9 - DORSALGIA, UNSPECIFIED; G89.29 - OTHER CHRONIC PAIN Status: Acute - Plan Continue oxygen and/or BiPAP as indicated. Morphine added. Will add xanax as well. Weaned down to [place] oxygen for the most part. Pulmonary following. Steroids, nebs, abx. Gentle diuresis. Has mild pre-renal azotemia from diuresis. Has mild contraction alkylosis. Diamox given. Recheck labs in am. Possibly to floor tomorrow. Discussed the hospice considerations with the patient and his . They have decided he is too debilitated for her to care for him at home. They initiated a conversation with a private hospice home.
[2019-07-21 17:16] LABS: Vancomycin, Trough 13.9 ug/mL
[2019-07-21] MEDS: Gabapentin 300 MG CAP PO SCH (20:20)
[2019-07-21] MEDS ORDERED: acetaZOLAMIDE Sodium 250 MG in Sodium Chloride 0.9% 50 ML IVPB SCH (21:00)
[2019-07-22] MEDS: Cefepime 2 GM in Sodium Chloride 0.9% 100 ML IVPB SCH ×3 (01:08→17:57)
[2019-07-22] MEDS: Ipratropium Bromide 2.5 ml Neb NEB SCH ×6 (03:07→23:19)
[2019-07-22 04:17] LABS: Phosphorus 3.4 mg/dL (2.3-4.7)
[2019-07-22 04:19] LABS: Anion Gap 12 mmol/L (10-20); BUN (Urea Nitrogen) 33 mg/dL (8.4-25.7); Calc. Creatinine Clearance 84 mL/min (70-130); Calcium 8.8 mg/dL (7.8-10.44); Carbon Dioxide 29 mmol/L (23-31); Chloride 101 mmol/L (98-107); Estimated GFR-MDRD 90; Glucose 94 mg/dL (83-110); Sodium 138 mmol/L (136-145)
[2019-07-22] MEDS: Vancomycin HCl 1 GM in Premix Bag 1 BAG IVPB SCH (06:10)
[2019-07-22] MEDS: Mometasone/Formoterol 120 PUFF INHALER INH SCH ×2 (07:24→19:46)
--- NOTE | 2019-07-22 08:31 | PRG ---
DATE OF SERVICE: 07/22/2019 SUBJECTIVE: The patient is seen and examined at the bedside. He is frustrated because he was not able to pee and we had to catheterize him and we got 800 mL of urine out of his bladder. His respirations improved. He was on BiPAP. He is switched to nasal cannula now. OBJECTIVE: VITAL SIGNS: Blood pressure is 134/95, pulse is 81, respiratory rate is 14, O2 saturation is 100%. HEENT: His eyes are PERRLA. Sclerae are nonicteric. LUNGS: Bilateral wheezes and crackles, mild, present. HEART: S1 and S2 normal. ABDOMEN: Soft, nontender. EXTREMITIES: No clubbing, cyanosis, or edema. NEUROLOGIC: He follows my commands. He moves his all 4 extremities. He is alert and oriented x4. There is no any motor deficits. LABORATORY DATA: None today. IMPRESSION: 1. Acute on chronic respiratory failure with hypoxia. 2. Chronic obstructive pulmonary disease exacerbation. 3. Adenocarcinoma of the lung, stage IV. 4. Recurrent left pleural effusion. 5. History of posttraumatic stress disorder. 6. Pancytopenia due to chemotherapy. 7. Acute myocardial infarction. 8. Dyslipidemia. 9. Chronic back pain. PLAN: The patient had 800 mL of urine in his bladder. He was catheterized and we will try to see whether he can pee on his own. If he does not, we will put the Price catheter in and we will continue his DuoNeb. We will continue his steroids. We will stop his vancomycin. We will continue his cefepime. Pulmonary team is following. DVT prophylaxis with SCDs. Apparently, the patient's is looking into private hospice and we should have some answers today. Job ID: [id number]
--- NOTE | 2019-07-22 08:58 | PRG ---
DATE OF SERVICE: 07/22/2019 SUBJECTIVE: The patient is breathing better. He did wear the BiPAP last night. He is planning to go home on hospice when that is arranged. OBJECTIVE: VITAL SIGNS: Temperature 97.2, pulse 107, blood pressure 134/95, and O2 saturation 100%. HEENT: Unremarkable. NECK: No JVD. LUNGS: Diminished breath sounds bilaterally. CARDIAC: S1 and S2, regular. ABDOMEN: Soft. EXTREMITIES: No edema. LABORATORY DATA: Sodium 138, potassium 4, BUN 33, creatinine 0.8, and glucose 94. ASSESSMENT: 1. Chronic hypoxic respiratory failure with hypercapnia. 2. Chronic obstructive pulmonary disease. 3. Non-small cell lung cancer. 4. Anxiety. PLAN: Continue BiPAP as needed. Hospice is being arranged. He will continue on antibiotics, acetazolamide, and steroids. Job ID: [id number]
[2019-07-22] MEDS ORDERED: acetaZOLAMIDE Sodium 250 MG in Sodium Chloride 0.9% 50 ML IVPB SCH (09:00)
[2019-07-22] MEDS: predniSONE 20 MG TAB PO SCH (09:38)
[2019-07-22] MEDS: Famotidine 20 MG TAB PO SCH ×2 (09:39→20:09)
[2019-07-22] MEDS: guaiFENesin ER 600 MG TAB PO SCH ×2 (09:39→20:09)
[2019-07-22] MEDS: Senokot S 8.6-50 MG TAB PO SCH ×2 (09:39→20:09)
[2019-07-22] MEDS: Morphine 4 MG/ML VIAL SLOW IVP PRN ×2 (11:04→18:33)
[2019-07-22 11:07] LABS: Hemoglobin 9.9 g/dL (14.0-18.0); Mean Corpuscular HGB CONC 32.7 g/dL (32.0-36.0); Mean Corpuscular Hemoglobin 34.8 pg (27.0-31.0); Mean Platelet Volume 10.8 fL (7.4-10.4); Platelet Count 32 thou/uL (130-400); RBC Distribution Width 17.6 % (11.5-14.5); Red Blood Cell (RBC) Count 2.84 mill/uL (4.70-6.10); White Blood Cell (WBC) Count 2.6 thou/uL (4.8-10.8)
[2019-07-22 11:51] LABS: Anisocytosis SLIGHT = 6-15 cells (100X) (0-5/hpf); Eosinophils 2 % (0-10); Lymphocytes 28 % (21-51); MDiff Complete? YES; Macrocytosis SLIGHT = 6-15 cells (100X) (0-5/hpf); Monocytes 18 % (0-10); Neutrophil 50 % (42-75); Platelet Morphology Comment Appears Decreased; Polychromasia SLIGHT = 2-3 cells (100X) (0-2/hpf); Reactive Lymphocytes 2 % (0-10); Schistocytes SLIGHT = 2-5 cells (100X) (0-1/hpf); Tear Drops SLIGHT = 2-5 cells (100X) (0-1/hpf)
--- NOTE | 2019-07-22 15:44 | PDOC.MOPN ---
Interval History: Requiring BPAP more each day. - Vital Signs Vital Signs: Vital Signs (12 hours) Temp Pulse Pulse Pulse Resp BP BP 07/22/19 15:42 115 H 25 H 07/22/19 12:22 109 H 101 H 143/96 H 131/87 07/22/19 10:32 89 10 L 07/22/19 07:43 07/22/19 07:24 81 07/22/19 07:23 82 14 07/22/19 07:00 97.2 F L Pulse Ox Pulse Ox Pulse Ox 07/22/19 15:42 94 L 07/22/19 12:22 95 97 07/22/19 10:32 94 L 07/22/19 07:43 97 07/22/19 07:24 07/22/19 07:23 100 07/22/19 07:00 Weight Weight 170 lb 4 oz Most Recent Monitor Data Heart Rate from ECG 99 NIBP 106/77 NIBP BP-Mean 86 Respiration from ECG 16 SpO2 100 - Physical Exam General: Alert HEENT: Atraumatic Lungs: Other Cardiovascular: Other Abdomen: Normal bowel sounds Extremities: Other (2+ B LE edema) Neurological: Normal speech Psych/Mental Status: Mental status NL - Labs Result Diagrams: 07/22/19 10:36 07/22/19 03:30 Lab results: Laboratory Results - last 24 hr 07/22/19 10:36: WBC 2.6 L, RBC 2.84 L, Hgb 9.9 L, Hct 30.2 L, MCV 106.0 H, MCH 34.8 H, MCHC 32.7, RDW 17.6 H, Plt Count 32 L, MPV 10.8 H, Neutrophils % (Manual ) 50, Lymphocytes % (Manual) 28, Reactive Lymphs % 2, Monocytes % (Manual) 18 H , Eosinophils % (Manual) 2, Neutrophils # Not Reportable, Lymphocytes # Not Reportable, Plt Morphology Comment Appears Decreased L, Polychromasia SLIGHT = 2 -3 cells, Anisocytosis SLIGHT = 6-15 cells, Macrocytosis SLIGHT = 6-15 cells, Tear Drop Cells SLIGHT = 2-5 cells, Schistocytes SLIGHT = 2-5 cells 07/22/19 03:30: Phosphorus 3.4 07/22/19 03:30: Sodium 138, Potassium 4.0, Chloride 101, Carbon Dioxide 29, Anion Gap 12, BUN 33 H, Creatinine 0.83, Estimated GFR (MDRD) 90, Glucose 94, Calcium 8.8, Magnesium 2.0 07/21/19 16:44: Vancomycin Trough 13.9 Status: lab reviewed by me A/P - Problem (1) Acute and chronic respiratory failure with hypoxia Current Visit: Yes Code(s): J96.21 - ACUTE AND CHRONIC RESPIRATORY FAILURE WITH HYPOXIA Status: Acute (2) COPD exacerbation Current Visit: No Code(s): J44.1 - CHRONIC OBSTRUCTIVE PULMONARY DISEASE W ( ACUTE) EXACERBATION Status: Acute (3) Adenocarcinoma of lung, stage 4 Current Visit: No Code(s): C34.90 - MALIGNANT NEOPLASM OF UNSP PART OF UNSP BRONCHUS OR LUNG Status: Chronic Qualifiers: Laterality: left Qualified Code(s): C34.92 - Malignant neoplasm of unspecified part of left bronchus or lung - Plan Plan: Long discussion with patient and spouse regarding end of life and advanced directives Patient agrees to focus on quality and be DNAR Continue xanax and morphine for comfort. Possible inpatient hospice next week.
[2019-07-22] MEDS: ALPRAZolam 0.25 MG TAB PO PRN (20:09)
[2019-07-22] MEDS: Gabapentin 300 MG CAP PO SCH (20:09)
[2019-07-23] MEDS: Cefepime 2 GM in Sodium Chloride 0.9% 100 ML IVPB SCH ×3 (00:07→16:53)
[2019-07-23] MEDS: Morphine 4 MG/ML VIAL SLOW IVP PRN ×5 (00:37→23:11)
[2019-07-23] MEDS: Ipratropium Bromide 2.5 ml Neb NEB SCH ×6 (03:54→22:38)
[2019-07-23 04:50] LABS: Anion Gap 8 mmol/L (10-20); BUN (Urea Nitrogen) 28 mg/dL (8.4-25.7); Calc. Creatinine Clearance 92 mL/min (70-130); Calcium 8.9 mg/dL (7.8-10.44); Carbon Dioxide 31 mmol/L (23-31); Chloride 104 mmol/L (98-107); Estimated GFR-MDRD Greater than 90; Glucose 81 mg/dL (83-110); Sodium 139 mmol/L (136-145)
[2019-07-23 05:03] LABS: Phosphorus 2.7 mg/dL (2.3-4.7)
[2019-07-23] MEDS: Mometasone/Formoterol 120 PUFF INHALER INH SCH ×2 (07:01→19:31)
[2019-07-23] MEDS: guaiFENesin ER 600 MG TAB PO SCH ×2 (10:05→20:58)
[2019-07-23] MEDS: predniSONE 20 MG TAB PO SCH (10:05)
[2019-07-23] MEDS: Sterile Water 10 ML VIAL IVP SCH (10:06)
[2019-07-23] MEDS: Senokot S 8.6-50 MG TAB PO SCH ×2 (10:06→20:57)
[2019-07-23] MEDS: acetaZOLAMIDE Sodium 500 mg Vial IVP SCH (10:06)
[2019-07-23] MEDS: Famotidine 20 MG TAB PO SCH ×2 (10:06→20:57)
--- NOTE | 2019-07-23 16:26 | PRG ---
DATE OF SERVICE: 07/23/2019 SUBJECTIVE: The patient is seen and examined at the bedside. He is placed on a BiPAP mask because he is just saturating today. The case was discussed with the patient's , who is present in the room during my visit. OBJECTIVE: VITAL SIGNS: Blood pressure is 102/71, temperature is 96.9, respiratory rate is 20, and O2 saturation 97%. GENERAL: He has his mask on the phase and though examination is limited secondary to his worsening respiratory failure. LUNGS: His breath sounds are diminished bilaterally. HEART: S1 and S2 normal. Regular. ABDOMEN: Soft and nontender. EXTREMITIES: No edema. LABORATORY DATA: Normal electrolytes. CO2 of 31, BUN 28, creatinine 0.77, glucose 81, phosphorus 2.7, magnesium 2.0, and calcium 8.9. IMPRESSION: 1. Acute on chronic respiratory failure with hypoxia, worsening today. He requires bilevel positive airway pressure and Pulmonary Service managing that. 2. Chronic obstructive pulmonary disease exacerbation on steroids and antibiotic. 3. Adenocarcinoma of the lung, stage 4. 4. Recurrent left pleural effusion. 5. History of post-traumatic stress disorder. 6. Pancytopenia due to chemotherapy. 7. Acute myocardial infarction. 8. Dyslipidemia. 9. Chronic back pain. 10. Urinary retention. PLAN: The patient was catheterized and he is able to void by himself. He did not need a Price catheter to be placed and left in. He will continue his cefepime. He will continue BiPAP per Pulmonary recommendation. He is supposed to discuss with his possible hospice referral, but this is planned when he gets slightly better with his respirations, which is worsened today. We will continue [facility] and his code status is changed to do not attempt resuscitation at this point. Job ID: [id number]
--- NOTE | 2019-07-23 18:29 | PRG ---
DATE OF SERVICE: 07/23/2019 SERVICE: Pulmonary Medicine. INTERVAL HISTORY: The patient is doing very poorly from respiratory standpoint. He can hardly tolerate, break off the BiPAP at all. As soon as he take it off them, he starts pursing his lips, he is desaturating. He denies any current fevers, chills, nausea, or vomiting. There has been no interval change to his condition otherwise. PHYSICAL EXAMINATION: VITAL SIGNS: Afebrile, pulse 88, blood pressure 102/71, respirations 15, and saturation 97%, currently on 40% FiO2 delivered via BiPAP. GENERAL: The patient is awake and alert, in no apparent distress. LUNGS: Very reduced air entry. No prolonged expiratory phase or wheezing is appreciated. HEART: Normal rate and regular. ABDOMEN: Soft, nontender, and nondistended. Bowel sounds are positive. MUSCULOSKELETAL: No cyanosis or clubbing. There is 2 to 2+ pitting in the right lower extremity. Trace pitting in the left lower extremity. NEUROLOGIC: Grossly nonfocal. LABORATORY DATA: WBC 2.6, hemoglobin 9.9, and platelets 32,000 and downtrending. Basic metabolic profile is otherwise unremarkable. Bicarb is 31, and roughly stable. Magnesium and phosphorous fall within the normal limits. Potassium 4.0. Urinalysis is unremarkable. Blood cultures x2, urinalysis are negative. IMAGING STUDIES: Echocardiogram demonstrates normal ejection fraction, 1/3 diastolic dysfunction. The right ventricle is completely dilated with elevated RV systolic pressures. ASSESSMENT: 1. Acute on chronic hypoxic respiratory failure. 2. Chronic obstructive pulmonary disease with acute exacerbation. 3. Acute on chronic diastolic heart failure. 4. Pulmonary hypertension, quite severe. 5. Non-small cell lung cancer. DISCUSSION AND PLAN: At this point, discharge to hospice is being arranged. We will continue our supportive care for the time being, including nebulized medications, steroids, antibiotics, and p.r.n. BiPAP. We will continue to diurese the patient down to euvolemia as much as he tolerates it. Pulmonary will continue to follow along while the patient remains in this location. Job ID: [id number]
[2019-07-23] MEDS: Gabapentin 300 MG CAP PO SCH (20:57)
[2019-07-23] MEDS: ALPRAZolam 0.25 MG TAB PO PRN (23:10)
[2019-07-24] MEDS: Cefepime 2 GM in Sodium Chloride 0.9% 100 ML IVPB SCH ×3 (00:22→17:23)
[2019-07-24] MEDS: Ipratropium Bromide 2.5 ml Neb NEB SCH ×6 (02:46→22:37)
[2019-07-24 05:02] LABS: Phosphorus 2.4 mg/dL (2.3-4.7)
[2019-07-24 05:03] LABS: Anion Gap 9 mmol/L (10-20); BUN (Urea Nitrogen) 27 mg/dL (8.4-25.7); Calc. Creatinine Clearance 94 mL/min (70-130); Calcium 8.7 mg/dL (7.8-10.44); Carbon Dioxide 29 mmol/L (23-31); Chloride 104 mmol/L (98-107); Estimated GFR-MDRD Greater than 90; Glucose 81 mg/dL (83-110); Magnesium 2.1 mg/dL (1.6-2.6); Sodium 138 mmol/L (136-145)
[2019-07-24 05:10] VITALS: BMI 26.9
[2019-07-24] MEDS: Morphine 4 MG/ML VIAL SLOW IVP PRN ×4 (05:46→19:47)
[2019-07-24] MEDS: Mometasone/Formoterol 120 PUFF INHALER INH SCH ×2 (08:14→19:27)
[2019-07-24] MEDS: predniSONE 20 MG TAB PO SCH (09:36)
[2019-07-24] MEDS: Famotidine 20 MG TAB PO SCH ×2 (09:37→22:30)
[2019-07-24] MEDS: acetaZOLAMIDE Sodium 500 mg Vial IVP SCH (09:37)
[2019-07-24] MEDS: Sterile Water 10 ML VIAL IVP SCH (09:38)
[2019-07-24] MEDS: guaiFENesin ER 600 MG TAB PO SCH ×2 (09:38→22:30)
[2019-07-24] MEDS: Senokot S 8.6-50 MG TAB PO SCH ×2 (09:38→22:30)
--- NOTE | 2019-07-24 10:25 | PRG ---
DATE OF SERVICE: 07/24/2019 SUBJECTIVE: The patient is seen and examined at the bedside. He wears the BiPAP mask because of hypoxia when he is on nasal cannula, he requires noninvasive positive pressure ventilation. At this point, it looks like he cannot come off this at least for now. OBJECTIVE: VITAL SIGNS: Blood pressure is 104/78, pulse is 85, respiratory rate is 21, O2 saturation is 100% on BiPAP with FiO2 of 40. LUNGS: Bilateral rales at both bases and few wheezes bilaterally. HEART: S1 and S2, normal. No S3. No S4. ABDOMEN: Soft and nontender. NEUROLOGIC: He follows my commands. He moves his all 4 extremities. LABORATORY DATA: Sodium of 138, potassium 4.0, chloride 104, CO2 of 29, BUN 27, creatinine 0.75, glucose 81, calcium 8.7, phosphorus 2.4, and magnesium 2.1. IMPRESSION: 1. Worsening respiratory failure, now requiring BiPAP continuously. Pulmonary is following. 2. Chronic obstructive pulmonary disease exacerbation, on steroids and antibiotic and DuoNebs. 3. Adenocarcinoma of the lung, stage IV. 4. Recurrent left pleural effusion. 5. History of posttraumatic stress disorder. 6. Pancytopenia due to chemotherapy, improved. 7. Acute myocardial infarction. 8. Dyslipidemia. 9. Chronic back pain. 10. Urinary retention. PLAN: We are going to continue his current regimen. Continuous BiPAP per Pulmonary's recommendation. Continue oral prednisone and inhaled steroids. The patient is do not attempt resuscitation at this point, and most likely, he will make decision about Hospice Service soon. Job ID: [id number]
[2019-07-24] MEDS ORDERED: Furosemide 40 MG/4 ML VIAL SLOW IVP SCH (16:45)
--- NOTE | 2019-07-24 16:59 | PRG ---
DATE OF SERVICE: 07/24/2019 INTERVAL HISTORY: The patient is doing poorly from respiratory standpoint. He has had a hard time taking breaks off his BiPAP. He has developed a little bit of asterixis. Yesterday, he is having very challenging time with urinating. A straight catheter was placed, and 900 mL of fluid was subsequently removed. He denies any current fevers, chills, or overnight events otherwise. PHYSICAL EXAMINATION: VITAL SIGNS: Afebrile, pulse 89, blood pressure 115/79, respirations 14, saturation 100%, currently on 40% FiO2 delivered via BiPAP. GENERAL: The patient is awake and alert, in no apparent distress. LUNGS: Crackles are present bilaterally. There is decent air entry. Slightly prolonged expiratory phase, but no wheezing is appreciated. HEART: Normal rate, regular. ABDOMEN: Soft, nontender, nondistended. Bowel sounds are positive. MUSCULOSKELETAL: No cyanosis or clubbing. There is diffuse 2+ edema, pitting throughout. NEUROLOGIC: Grossly nonfocal. LABORATORY DATA: Basic metabolic profile is unremarkable. Magnesium and phosphorous fall within the normal limits. Creatinine 0.75. Urinalysis is negative. Vancomycin trough 13.9. Blood cultures x2, influenza, and urine culture negative. ASSESSMENT: 1. Holgf-lw-trklyib hypoxic respiratory failure. 2. Chronic obstructive pulmonary disease with acute exacerbation, improving. 3. Fywpz-gx-kcrrlzu diastolic heart failure. 4. Pulmonary hypertension, severe. 5. Gzk-zscmo-chql lung cancer. DISCUSSION AND PLAN: We will place a Price catheter for both comfort and urine retention. We will continue diuresis as much as tolerated. We will continue our mobilization efforts. Ultimately, on discharge from the hospital, hospice is being considered. We will give him breaks off the BiPAP and increase as tolerated. Otherwise supportive measures will be continued. Job ID: [id number]
[2019-07-24] MEDS: ALPRAZolam 0.25 MG TAB PO PRN (17:50)
[2019-07-24] MEDS: HYDROcodone/Acetaminophen 10/325 mg Tablet PO PRN (22:29)
[2019-07-24] MEDS: Gabapentin 300 MG CAP PO SCH (22:30)
[2019-07-25] MEDS: Cefepime 2 GM in Sodium Chloride 0.9% 100 ML IVPB SCH ×3 (01:31→17:21)
[2019-07-25] MEDS: Ipratropium Bromide 2.5 ml Neb NEB SCH ×4 (02:19→14:02)
[2019-07-25] MEDS: Furosemide 40 MG/4 ML VIAL SLOW IVP SCH ×2 (05:14→14:16)
[2019-07-25 06:10] LABS: Anion Gap 13 mmol/L (10-20); BUN (Urea Nitrogen) 31 mg/dL (8.4-25.7); Calc. Creatinine Clearance 78 mL/min (70-130); Calcium 8.7 mg/dL (7.8-10.44); Carbon Dioxide 27 mmol/L (23-31); Chloride 105 mmol/L (98-107); Estimated GFR-MDRD 84; Glucose 72 mg/dL (83-110); Potassium 3.6 mmol/L (3.5-5.1); Sodium 141 mmol/L (136-145)
[2019-07-25] MEDS: Mometasone/Formoterol 120 PUFF INHALER INH SCH (07:26)
[2019-07-25 08:14] VITALS: BP 95/71
[2019-07-25] MEDS: Famotidine 20 MG TAB PO SCH (08:26)
[2019-07-25] MEDS: predniSONE 20 MG TAB PO SCH (08:26)
[2019-07-25] MEDS: guaiFENesin ER 600 MG TAB PO SCH (08:26)
[2019-07-25] MEDS: Senokot S 8.6-50 MG TAB PO SCH (08:27)
[2019-07-25] MEDS: Sterile Water 10 ML VIAL IVP SCH (08:34)
[2019-07-25] MEDS: Morphine 4 MG/ML VIAL SLOW IVP PRN ×3 (08:34→15:26)
[2019-07-25] MEDS: acetaZOLAMIDE Sodium 500 mg Vial IVP SCH (08:35)
--- NOTE | 2019-07-25 09:08 | PRG ---
DATE OF SERVICE: 07/25/2019 SUBJECTIVE: The patient is doing very poorly despite aggressive care with BiPAP. OBJECTIVE: VITAL SIGNS: On exam, temperature is 97.9, pulse 110, blood pressure 119/78, and O2 saturation 98% on BiPAP. GENERAL: He will wake up, tries to answer questions. HEENT: Unremarkable. NECK: No adenopathy or JVD. LUNGS: Diminished breath sounds throughout. CARDIAC: S1 and S2. Tachycardic. ABDOMEN: Soft. EXTREMITIES: Edematous. LABORATORY DATA: Sodium 141, potassium 3.6, chloride 105, CO2 of 27, BUN 31, creatinine 0.8, and glucose 72. ASSESSMENT: 1. Acute on chronic respiratory failure, requiring noninvasive mechanical ventilation. 2. Non-small cell lung cancer. 3. Pulmonary hypertension. 4. Acute on chronic diastolic heart failure. PLAN: This patient's situation is terminal. I do not think any form of aggressive care is going to change the outcome. I would suggest we pursue a course of inpatient hospice and focus more palliating his symptoms. Job ID: [id number]
[2019-07-25] MEDS ORDERED: methylPREDNISolone Sod Succ 40 MG VIAL IVP SCH (12:00)
[2019-07-25] MEDS ORDERED: Lorazepam 2 MG/ML VIAL SLOW IVP PRN ×2 (13:39)
--- NOTE | 2019-07-25 13:42 | PDOC.MOPN ---
Interval History: Patient remains on BPAP. Desats when removed. - Vital Signs Vital Signs: Vital Signs (12 hours) Temp Pulse Resp BP Pulse Ox 07/25/19 12:00 98.2 F 07/25/19 10:40 101 H 07/25/19 10:38 101 H 16 99 07/25/19 08:00 97.9 F 95/71 07/25/19 07:52 94 L 07/25/19 07:26 118 H 07/25/19 07:23 117 H 39 H 95 07/25/19 03:48 97.9 F 07/25/19 02:20 97 98 07/25/19 02:19 98 Weight Weight 167 lb 5 oz Most Recent Monitor Data Heart Rate from ECG 109 NIBP 107/69 NIBP BP-Mean 81 Respiration from ECG 46 SpO2 95 - Physical Exam General: Mild distress Lungs: Other (bpap) Cardiovascular: Other (tachy) Abdomen: Normal bowel sounds Extremities: Other Neurological: Other - Labs Result Diagrams: 07/22/19 10:36 07/25/19 05:26 Lab results: Laboratory Results - last 24 hr 07/25/19 05:26: Sodium 141, Potassium 3.6, Chloride 105, Carbon Dioxide 27, Anion Gap 13, BUN 31 H, Creatinine 0.88, Estimated GFR (MDRD) 84, Glucose 72 L, Calcium 8.7 Status: lab reviewed by me A/P - Problem (1) Acute and chronic respiratory failure with hypoxia Current Visit: Yes Code(s): J96.21 - ACUTE AND CHRONIC RESPIRATORY FAILURE WITH HYPOXIA Status: Acute (2) COPD exacerbation Current Visit: No Code(s): J44.1 - CHRONIC OBSTRUCTIVE PULMONARY DISEASE W ( ACUTE) EXACERBATION Status: Acute (3) Adenocarcinoma of lung, stage 4 Current Visit: No Code(s): C34.90 - MALIGNANT NEOPLASM OF UNSP PART OF UNSP BRONCHUS OR LUNG Status: Chronic Qualifiers: Laterality: left Qualified Code(s): C34.92 - Malignant neoplasm of unspecified part of left bronchus or lung - Plan Plan: Patient did not improve over the weekend. Discussed with patient and spouse on Thursday that he needs inpatient hospice. Referral sent. Discussed with and she agrees.
--- NOTE | 2019-07-25 15:56 | PDOC.HOSPP ---
- Subjective Encounter Date: 07/25/19 Encounter Time: 15:55 Subjective: Continues to do very poorly from a resp standpoint. Completely BiPAP dependent. Cannot come off without immediately dropping his sats. His is awaiting hospice arrive. - Objective Vital Signs & Weight: Vital Signs (12 hours) Temp Pulse Resp BP Pulse Ox 07/25/19 14:03 103 H 07/25/19 14:02 103 H 29 H 95 07/25/19 12:00 98.2 F 07/25/19 10:40 101 H 07/25/19 10:38 101 H 16 99 07/25/19 08:00 97.9 F 95/71 07/25/19 07:52 94 L 07/25/19 07:26 118 H 07/25/19 07:23 117 H 39 H 95 Weight Weight 167 lb 5 oz Most Recent Monitor Data Heart Rate from ECG 103 NIBP 85/46 NIBP BP-Mean 59 Respiration from ECG 46 SpO2 100 I&O: 07/24/19 07/25/19 07/26/19 06:59 06:59 06:59 Intake Total 366 731 Output Total 350 2780 Balance 16 -2048 Result Diagrams: 07/22/19 10:36 07/25/19 05:26 Hospitalist ROS - Medication Medications: Active Medications Generic Name Dose Route Start Last Admin Trade Name Freq PRN Reason Stop Dose Admin Hydrocodone Bitart/Acetaminophen 1 tab 07/18/19 17:47 07/24/19 22:29 Marion 10/325 PO 1 tab Q4H PRN Administration Moderate to Severe Pain (6-10) Acetazolamide Sodium 250 mg 07/23/19 09:00 07/25/19 08:35 Diamox IVP 250 mg DAILY TORIE Administration Alprazolam 0.25 mg 07/21/19 12:14 07/24/19 17:50 Xanax PO 0.25 mg QIDPRN PRN Administration Anxiety Famotidine 20 mg 07/18/19 21:00 07/25/19 08:26 Pepcid PO Not Given BID TORIE Furosemide 40 mg 07/25/19 06:00 07/25/19 14:16 Lasix SLOW IVP Not Given 0600,1400 TORIE Gabapentin 600 mg 07/18/19 21:00 07/24/19 22:30 Neurontin PO 600 mg HS TORIE Administration Guaifenesin 600 mg 07/18/19 21:00 07/25/19 08:26 Mucinex PO Not Given Q12HR TORIE Cefepime HCl 2 gm/ Sodium 100 mls @ 200 mls/hr 07/19/19 01:00 07/25/19 08:34 Chloride IVPB 100 mls Q8H TORIE Administration Ipratropium Moran 2.5 ml 07/18/19 18:30 07/25/19 14:02 Atrovent NEB 2.5 ml [id number] TORIE Administration Methylprednisolone Sodium Succinate 20 mg 07/25/19 12:00 07/25/19 11:54 Solu-Medrol IVP 20 mg Q6HR TORIE Administration Mometasone Furoate/Formoterol Fumar 2 puff 07/18/19 18:30 07/25/19 07:26 Dulera 200 Mcg/5 Mcg Inhaler INH 2 puff BID-RT TORIE Administration Morphine Sulfate 4 mg 07/20/19 17:52 07/25/19 15:26 Morphine SLOW IVP 4 mg Q4H PRN Administration Congestion Ondansetron HCl 4 mg 07/21/19 12:14 07/21/19 13:01 Zofran IVP 4 mg Q6H PRN Administration Nausea/Vomiting Pantoprazole Sodium 40 mg 07/19/19 09:00 07/25/19 08:26 Protonix PO Not Given DAILY [facility] Phenol 0 ml 07/19/19 21:15 07/19/19 21:49 Chloraseptic [place] 180 Ml Bot PO 2 spr QID PRN Administration Sore Throat Senna/Docusate Sodium 1 tab 07/18/19 21:00 07/25/19 08:27 Senokot S PO Not Given BID TORIE Sodium Chloride 10 ml 07/18/19 21:00 07/25/19 08:35 Flush - Normal Saline IVF 10 ml Q12HR TORIE Administration Sterile Water 5 ml 07/23/19 09:00 07/25/19 08:34 Water For Injection IVP 5 ml DAILY TORIE Administration - Exam General Appearance: ill appearing General - other findings: Bipap Heart: RRR Heart - other findings: tachy Respiratory - other findings: Extremely diminished, scattered rales. Gastrointestinal: soft, non-tender, non-distended, normal bowel sounds, no palpable masses, no hepatomegaly, no splenomegaly, no bruit Extremities: no cyanosis, no clubbing, no edema Psychiatric: lethargic Hosp A/P (1) Acute and chronic respiratory failure with hypoxia Code(s): J96.21 - ACUTE AND CHRONIC RESPIRATORY FAILURE WITH HYPOXIA Status: Acute (2) COPD exacerbation Code(s): J44.1 - CHRONIC OBSTRUCTIVE PULMONARY DISEASE W (ACUTE) EXACERBATION Status: Acute (3) Recurrent left pleural effusion Code(s): J90 - PLEURAL EFFUSION, NOT ELSEWHERE CLASSIFIED Status: Acute (4) Adenocarcinoma of lung, stage 4 Code(s): C34.90 - MALIGNANT NEOPLASM OF UNSP PART OF UNSP BRONCHUS OR LUNG Status: Chronic Qualifiers: Laterality: left Qualified Code(s): C34.92 - Malignant neoplasm of unspecified part of left bronchus or lung (5) Dyslipidemia Code(s): E78.5 - HYPERLIPIDEMIA, UNSPECIFIED Status: Chronic (6) Emphysema lung Code(s): J43.9 - EMPHYSEMA, UNSPECIFIED Status: Chronic (7) PTSD (post-traumatic stress disorder) Code(s): F43.10 - POST-TRAUMATIC STRESS DISORDER, UNSPECIFIED Status: Chronic (8) Tobacco abuse Code(s): Z72.0 - TOBACCO USE Status: Chronic (9) Pancytopenia due to chemotherapy Code(s): D61.810 - ANTINEOPLASTIC CHEMOTHERAPY INDUCED PANCYTOPENIA Status: Acute (10) Myocardial infarction acute Code(s): I21.9 - ACUTE MYOCARDIAL INFARCTION, UNSPECIFIED Status: Acute Qualifiers: Myocardial infarction type: type 2 Qualified Code(s): I21.A1 - Myocardial infarction type 2 (11) Chronic back pain Code(s): M54.9 - DORSALGIA, UNSPECIFIED; G89.29 - OTHER CHRONIC PAIN Status: Acute - Plan End-stage COPD and lung cancer. Continuing Bipap. Pending hospice eval. Anticipate transitioning to hospice GIP today.
[2019-07-25 16:25] VITALS: TEMP 97.4
--- NOTE | 2019-07-27 08:01 | PQF ---
JUANIS PATEL DENA [id number] [facility]- B05 [id number] CLINICAL DOCUMENTATION CLARIFICATION FORM: POST DISCHARGE Addendum to original discharge summary date: ____ Late entry note date: __ DATE: 07/27/2019 ATTN:JONNATHAN LOPEZ MD Please exercise your independent, professional judgment in responding to the clarification form. Clinical indicators are provided on the bottom of this form for your review Diagnosis Occasion on Admission: [ x ] COPD with acute exacerbation [ x ] Acute on Chronic Diastolic heart failure [ x ] Acute On Chronic Respiratory Failure with Hypoxia [ x ] Other diagnosis Stage IV lung cancer [ ] Unable to determine For continuity of documentation, please document condition throughout progress notes and discharge summary. Thank You. CLINICAL INDICATORS - SIGNS / SYMPTOMS / LABS - Chief complaint : SOB- H&P, 07/18, Haider Hannah MD - He reports weakness, dyspnea at rest- H&P, 07/18, Haider Hannah MD - has been as low 70% and more usual in the mid to upper 80%- H&P, 07/18, Haider Hannah MD - The patient is tachycardia, hypoxia and was at 89 % on 4L- H&P, 07/18, Haider Hannah MD RISK FACTORS - Stage IV Adenocarcinoma of the lung-H&P, 07/18, Haider Hannah MD -Acute on chronic hypoxic Resp failure Progress note, 07/19, Matty Jarrell MD - Chronic obstructive pulmonary disease with acute exacerbation Progress note, 07/19, Matty Jarrell MD -Acute on chronic diastolic heart failure Progress note, 07/19, Matty Jarrell MD TREATMENTS: - O2 Applied, BiPap- ED record, 07/18, Barrington Alcala MD - Albuterol sulfate.IV- MAR, 07/18 - Furosemide.IV- MAR, 07/19 (This form is maintained as a part of the permanent medical record) 2014 [employer]. All Rights Reserved Casper Jain [not provided] [not provided] MTDD
== END 2019-07-25 17:59 | disposition hospice, inpatient (51) | DRG 180 ==
LOC: ERS 13:40 → ERHOLD 20:02 → IMCU/EMU 22:20
PROVIDERS: ADMIT Family Medicine; ATTEND Family Medicine
DX: C34.90 Malignant neoplasm of unspecified part of unspecified bronchus or lung (principal); J96.21 Acute and chronic respiratory failure with hypoxia; I21.A1 Myocardial infarction type 2; D61.810 Antineoplastic chemotherapy induced pancytopenia; I50.33 Acute on chronic diastolic (congestive) heart failure; C79.51 Secondary malignant neoplasm of bone; I11.0 Hypertensive heart disease with heart failure; D69.6 Thrombocytopenia, unspecified; I27.20 Pulmonary hypertension, unspecified; E78.5 Hyperlipidemia, unspecified; J43.9 Emphysema, unspecified; E78.00 Pure hypercholesterolemia, unspecified; F43.10 Post-traumatic stress disorder, unspecified; D64.9 Anemia, unspecified; T45.1X5A Adverse effect of antineoplastic and immunosuppressive drugs, initial encounter; M81.0 Age-related osteoporosis without current pathological fracture; F17.210 Nicotine dependence, cigarettes, uncomplicated; F41.9 Anxiety disorder, unspecified; R79.89 Other specified abnormal findings of blood chemistry; G89.29 Other chronic pain; R33.9 Retention of urine, unspecified; Z99.81 Dependence on supplemental oxygen
CPT/HCPCS: 36415; 71045; 71275; 80048; 80053; 80202; 81003; 82550; 82553; 83605; 83735; 83880; 84100; 84484; 85025; 87040; 87086; 87804; 93005; 93306; 94640; 94660; 94664; 96361; 96365; 96367; 96375; J0692; J1120; J1940; J2270; J2405; J2920; J2930; J3370; J3490; J7512; J7620; Q9967

== ENCOUNTER 2019-07-25 18:05 | Inpatient (IN) | payer BC, MEDICARE, OTHER ==
[2019-07-25 18:52] VITALS: BMI 26.6
[2019-07-25] MEDS ORDERED: Ondansetron PF 4 MG/2 ML Vial IVP PRN (18:58)
[2019-07-25] MEDS ORDERED: Scopolamine 1.5 mg/72 hour Patch TOP PRN (18:58)
[2019-07-25] MEDS ORDERED: Haloperidol Lactate 5 MG/ML VIAL SLOW IVP PRN (18:58)
[2019-07-25] MEDS ORDERED: Acetaminophen 650 MG Suppository PR PRN (18:58)
[2019-07-25] MEDS ORDERED: Bacteriostatic Water 30 ML VIAL FS PRN (19:00)
[2019-07-25] MEDS ORDERED: Ipratropium Bromide 2.5 ml Neb NEB PRN (19:02)
[2019-07-25] MEDS ORDERED: Albuterol Sulfate 2.5 mg/3 ml Neb NEB PRN (19:02)
[2019-07-25] MEDS ORDERED: Bisacodyl 10 MG SUPP PR PRN (19:03)
[2019-07-25] MEDS ORDERED: methylPREDNISolone Sod Succ 40 MG VIAL IVP SCH (19:15)
[2019-07-26] MEDS: methylPREDNISolone Sod Succ 40 MG VIAL IVP SCH ×4 (01:18→19:10)
[2019-07-26] MEDS: Morphine 4 MG/ML VIAL SLOW IVP PRN ×6 (01:21→20:55)
[2019-07-26] MEDS: Lorazepam 2 MG/ML VIAL SLOW IVP PRN (02:41)
[2019-07-26] MEDS: Furosemide 40 MG/4 ML VIAL SLOW IVP SCH ×2 (06:09→12:23)
[2019-07-27] MEDS: methylPREDNISolone Sod Succ 40 MG VIAL IVP SCH ×4 (01:42→18:18)
[2019-07-27] MEDS: Morphine 4 MG/ML VIAL SLOW IVP PRN ×4 (01:43→16:33)
[2019-07-27] MEDS: Furosemide 40 MG/4 ML VIAL SLOW IVP SCH ×2 (06:40→14:24)
[2019-07-27] MEDS: Lorazepam 2 MG/ML VIAL SLOW IVP PRN ×2 (07:40→16:33)
[2019-07-27 16:02] VITALS: BP 91/58
[2019-07-27] MEDS ORDERED: Morphine 4 MG/ML VIAL SLOW IVP PRN (16:25)
[2019-07-27] MEDS ORDERED: Lorazepam 2 MG/ML VIAL SLOW IVP PRN (16:26)
[2019-07-27 20:00] VITALS: TEMP 98.4
--- NOTE | 2019-07-28 13:55 | DIS ---
DATE OF ADMISSION: 07/25/2019 DATE OF DISCHARGE: 07/27/2019 DATE OF : 07/27/2019. PRINCIPAL DIAGNOSIS: Cardiorespiratory failure. SECONDARY DIAGNOSES: 1. Stage IV lung cancer. 2. Chronic obstructive pulmonary disease. 3. Posttraumatic stress disorder. 4. Chronic hypoxemic respiratory failure. COMPLICATIONS: None. ADVERSE REACTIONS: None. PROCEDURES: None. CONSULTATIONS: None. HOSPITAL COURSE: The patient was admitted to inpatient hospice and he was continued on BiPAP until all his family members came in. Once the family members came in, he was taken off his BiPAP and he was kept comfortable and he soon thereafter. He was pronounced by the registered nurse and body was released to the home. For full details, please see chart. Job ID: [id number]
== END 2019-07-27 22:36 | disposition expired | DRG 951 ==
LOC: IMCU/EMU 18:05 → ONC 07-27 14:34
PROVIDERS: ADMIT Internal Medicine; ATTEND Internal Medicine
PROC: 5A09357 Assistance with Respiratory Ventilation, Less than 24 Consecutive Hours, Continuous Positive Airway Pressure (ICD-10-PCS; principal; 2019-07-25)
DX: Z51.5 Encounter for palliative care (principal); J96.21 Acute and chronic respiratory failure with hypoxia; C34.90 Malignant neoplasm of unspecified part of unspecified bronchus or lung; J44.1 Chronic obstructive pulmonary disease with (acute) exacerbation; Z66 Do not resuscitate; G89.29 Other chronic pain; F43.10 Post-traumatic stress disorder, unspecified; M54.9 Dorsalgia, unspecified; D69.6 Thrombocytopenia, unspecified; D64.9 Anemia, unspecified; I46.9 Cardiac arrest, cause unspecified; Z99.81 Dependence on supplemental oxygen; Z79.51 Long term (current) use of inhaled steroids; Z79.52 Long term (current) use of systemic steroids; Z79.899 Other long term (current) drug therapy; Z87.891 Personal history of nicotine dependence
CPT/HCPCS: J1940; J2060; J2270; J2920